=== PATIENT | female | born 1925 | race Caucasian/White ===

== ENCOUNTER 2016-07-05 13:03 | Inpatient (IN) | payer OTHER, MEDICARE ==
[~2016-07-05] VITALS: Ht 177.8 cm; Wt 61.7 kg
[~2016-07-05 13:03] MED LIST: ARTIFICIAL TEA1 EACH OP; ARTIFICIAL TEAR15 M5 OP; ATENOLOL25 M1 PO; ATENOLOL25 MG PO; CALCIUM 600600 M1 PO; DULOXETINE HCL30 MG PO; FERROUS SULFAT325 M3 PO; FUROSEMIDE20 MG PO; GOOD SENSE ASP325 MG PO; KEPPRA500 M1 PO; LAMICTAL150 MG PO; LAMOTRIGINE150 M1 PO; MULTI VITAMINS1 TAB PO; NITROFURANTOIN50 M1 PO; OS-CAL 500+D31 EAC1 PO; RISPERDAL0.5 M1 PO; RISPERIDONE0.5 M1 PO; TRAMADOL50 MG PO; TYLENOL EXTRA500 M2 PO; TYLENOL TAB 32325 MG PO
--- NOTE | 2016-07-05 13:07 | ED GENERAL ADULT ---
History of Present Illness General Chief Complaint: General Adult Stated Complaint: BIBA CHOKING, UNRESPONSIVE Source: EMS Exam Limitations: unable to give history, patient's age, not alert/orientated, clinical condition, confusion, dementia, poor historian, physical impairment Vital Signs & Intake/Output Vital Signs & Intake/Output Vital Signs Date Time Temp Pulse Resp B/P Pulse O2 O2 Flow FiO2 Ox Delivery Rate 07/05 1709 96.4 92 18 148/65 96 Nasal 3.0L Cannula 07/05 1547 97.5 95 18 113/58 98 07/05 1451 97.6 84 16 117/57 95 Nasal 3.0L Cannula 07/05 1326 97.6 94 14 153/77 91 Room Air Allergies Coded Allergies: Opioids - Morphine Analogues (N/V, MADE CRAZY 10/28/15) Reconcile Medications Acetaminophen (Tylenol Extra Strength) 500 MG TABLET 2 TAB PO TID PAIN CONTROL (Reported) Atenolol 25 MG TAB 1 TAB PO Wednesday BP/HEART (Reported) Calcium Carbonate/Vitamin D3 (Os-Carrillo 500+D3 Caplet) 1 EACH TABLET 1 TAB PO DAILY VITAMIN SUPPORT (Reported) Dextran 70/Hypromellose (Artificial Tears) 1 EACH DROPERETTE 1 DROP OP Q4H PRN DRY EYES - BOTH EYES (Reported) Duloxetine HCl 30 MG CAPSULE.DR 1 CAP PO Q12 DEPRESSION (Reported) Ferrous Sulfate 325 MG TABLET 1 TAB PO DAILY VITAMIN SUPPORT (Reported) Lamotrigine 150 MG TABLET 1 TAB PO Q12 SEIZURES (Reported) Multivitamin (One Daily Multivitamin) 1 TAB TAB 1 TAB PO DAILY SUPPLEMENT ( Reported) Triage Nurses Notes Reviewed? yes Onset: Abrupt Duration: hour(s): Timing: recent history HPI: 07/05/16 1:50 PM 82-year-old female presents to the emergency department by ambulance for status post aspiration and respiratory failure. The patient was at the alf eating shrimp for the holiday. She began to choke and the Heimlich maneuver was performed by staff. They said they noted audibly that they have fractured ribs during the procedure. The patient came in lethargic with gagging respirations. Her oropharynx was opened. Mass was noted on the hard palate. She also had an intact shrimp in her oropharynx. She was further suctioned, thick debris was suctioned from her airway. Her airway status improved. She remains lethargic with a room air saturation 93%. The patient is DNR/DNI. Past History Travel History Traveled to [place] past 21 day No Medical History Any Pertinent Medical History? 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 Refer elsewhere in this and other documents for additional details. There is no other information in these categories that I am aware of and no additional information was provided by the patient on consultation evaluation today which is pertinent to patient's current orthopaedic consultation assessment, recommendations or care. History of MRSA: No History of VRE: No History of CDIFF: No Surgical History Surgical History: cataract removal, LEFT HIP SURGERY AFTER FRACTURE , PATIENT UNSURE oophorectomy breast cancer s/p bilateral mastectomy thyroidectomy See Admission History & Physical Examination Report for detailed history. Psychosocial History Who do you live with Family What is your primary language Yoruba Family History Hx Contributory? No Review of Systems Review of Systems Constitutional: Reports: no symptoms. EENTM: Reports: no symptoms. Respiratory: Reports: see HPI. Cardiovascular: Reports: no symptoms. GI: Reports: see HPI. Genitourinary: Reports: no symptoms. Musculoskeletal: Reports: no symptoms. Skin: Reports: no symptoms. Neurological/Psychological: Reports: dementia. Hematologic/Endocrine: Reports: bruising. Physical Exam Physical Exam General Appearance: awake, anxious, moderate distress Head: atraumatic, normal appearance Eyes: Bilateral: PERRL. Ears, Nose, Throat: patient has a mass in her hard palate. She had food material and entire intact shrimp that was suctioned by me out of her oropharynx Neck: normal inspection, supple Respiratory: decreased breath sounds, rhonchi Cardiovascular: regular rate/rhythm Gastrointestinal: soft, non-tender Back: decreased range of motion Extremities: pedal edema Neurologic/Psych: lethargic, nonfocal Skin: ecchymosis, ecchymosis on the anterior chest wall Core Measures ACS in differential dx? Yes CVA/TIA Diagnosis: No Severe Sepsis Present: No Septic Shock Present: No Progress Differential Diagnoses I considered the following diagnoses in my evaluation of the patient: [Multiple rib fractures, status post aspiration, aspiration pneumonia, acute coronary syndrome, pneumothorax] Plan of Care: Orders Procedure Date/time Status CBC WITHOUT DIFFERENTIAL 07/06 0500 Active BASIC ELECTROLYTES PLUS BUN&CR 07/06 0500 Active Nothing by Mouth 07/05 D Active BLOOD CULTURE 07/05 1634 Active Pathway - chart 07/05 1554 Active House Staff 07/05 1554 Active Code Status 07/05 1554 Active Patient Data 07/05 1543 Active Admit to inpatient 07/05 1532 Active TROPONIN LEVEL 07/05 1355 Complete COMPREHENSIVE METABOLIC PANEL 07/05 1355 Complete CBC WITHOUT DIFFERENTIAL 07/05 1355 Complete EKG 07/05 1355 Active Intake & Output 07/05 1328 Active SWALLOW EVALUATION 07/05 UNK Active VTE Mechanical Prophylaxis 07/05 UNK Active Current Medications Sig/Thalia Start time Last Medication Dose Stop Time Status Admin Atenolol 25 MG 07/06 1000 AC (Tenormin) Ferrous Sulfate 325 MG DAILY 07/06 1000 AC (Feosol) Calcium 600 MG BID 07/05 2200 AC (Calcium Carbonate 600 MG Tab) Duloxetine HCl 30 MG Q12 07/05 2200 AC (Cymbalta) Lamotrigine 150 MG Q12 07/05 2200 AC (LaMICtal) Acetaminophen 650 MG Q6P PRN 07/05 1600 AC (Tylenol) Morphine Sulfate 4 MG Q4P PRN 07/05 1600 AC (Morphine) Oxycodone/ 1 TAB Q6P PRN 07/05 1600 AC Acetaminophen (Percocet) Laboratory Tests 07/05/16 1425: Anion Gap 7, Estimated GFR > 60, BUN/Creatinine Ratio 48.0 H, Glucose 199 H, Calcium 9.4, Total Bilirubin 0.6, AST 39 H, ALT 43, Alkaline Phosphatase 116, Troponin I < 0.01, Total Protein 5.3 L, Albumin 3.2 L, Globulin 2.1, Albumin/ Globulin Ratio 1.5, CBC w Diff MAN DIFF ORDERED, RBC 3.46 L, MCV 91.4, MCH 30.7 , RDW 14.1, MPV 7.4, Gran % 91.5 H, Lymphocytes % 3.5 L, Monocytes % 4.4, Eosinophils % 0.5, Basophils % 0.1, Absolute Granulocytes 35.4 H, Segmented Neutrophils 85 H, Band Neutrophils 4, Absolute Lymphocytes 1.3, Lymphocytes 3 L, Monocytes 5, Absolute Monocytes 1.7 H, Absolute Eosinophils 0.2, Absolute Basophils 0.1, Metamyelocytes 2 H, Myelocytes 1 H, Platelet Estimate ADEQUATE, Hypochromic-Microcytic 2+, Anisocytosis 1+, PUBS MCHC 33.6 Microbiology 07/05 1940 BLOOD: Blood Culture - RECD 07/05 1915 BLOOD: Blood Culture - RECD Initial ED EKG: NSR, nonspecific ST T wave chg Comments: Chest x-ray results below PATIENT: MAGO KHAN PRESENT AGE: 89 PATIENT ACCOUNT NO: [id number] : [birth year] LOCATION: [facility] ORDERING PHYSICIAN: ERIC MARRERO DO SERVICE DATE: 07/05/16-8736 EXAM TYPE: RAD - XRY-PORTABLE CHEST XRAY EXAMINATION: XR PORTABLE CHEST CLINICAL INFORMATION: Shortness of breath. Suspected aspiration. COMPARISON: Chest done on 03/13/2016. TECHNIQUE: Portable view of the chest was obtained. FINDINGS: Both lung bustos are symmetrically expanded and appear clear. The cardiomediastinal silhouette is within normal limits. There are foci of sclerosis identified along the anterior end of third, fourth, fifth ribs likely represent healing fractures, new since prior study. Post vertebroplasty related changes are noted within the lower thoracic spine, unchanged. There is no pleural effusion present. IMPRESSION: No acute cardiopulmonary disease. Likely healing fractures involving the anterior end of the left third through fifth ribs, new since prior study. DICTATED BY: ELDON MELENDEZ MD DATE/TIME DICTATED:07/05/161447 BID CLERK:SHEILA DATE/TIME TRANSCRIBED:07/05/161447 CONFIDENTIAL, DO NOT COPY WITHOUT APPROPRIATE AUTHORIZATION. <Electronically signed in Other Vendor System> SIGNED BY: ELDON MELENDEZ MD 07/05/16 7633 Departure Departure Disposition: STILL A PATIENT Condition: Stable Clinical Impression Primary Impression: Respiratory failure Secondary Impressions: Aspiration pneumonia, Multiple rib fractures, Observation of foreign body of airway Referrals: WICHO CYR MD (PCP/Family) Referred to [facility] patient No Departure Forms: Customer Survey General Discharge Information Comments 07/05/16 2:34 pm She was placed on a patient monitor. Her oropharynx was suctioned. IV fluids were started. She was placed on oxygen 2 L nasal cannula. The patient is DNR DNI. I attempted to reach the family unsuccessfully to update them on her condition. The patient was subsequently admitted by Dr. Cyr. She was having ventricular ectopy, Dr. Cyr was notified. IV antibiotics were given. She is admitted to the hospital for further care. Chest x-ray result listed below PATIENT: MAGO KHAN PRESENT AGE: 89 PATIENT ACCOUNT NO: [id number] : [birth year] LOCATION: [facility] ORDERING PHYSICIAN: ERIC MARRERO DO SERVICE DATE: 07/05/16 EXAM TYPE: RAD - XRY-PORTABLE CHEST XRAY EXAMINATION: XR PORTABLE CHEST CLINICAL INFORMATION: Shortness of breath. Suspected aspiration. COMPARISON: Chest done on 03/13/2016. TECHNIQUE: Portable view of the chest was obtained. FINDINGS: Both lung bustos are symmetrically expanded and appear clear. The cardiomediastinal silhouette is within normal limits. There are foci of sclerosis identified along the anterior end of third, fourth, fifth ribs likely represent healing fractures, new since prior study. Post vertebroplasty related changes are noted within the lower thoracic spine, unchanged. There is no pleural effusion present. IMPRESSION: No acute cardiopulmonary disease. Likely healing fractures involving the anterior end of the left third through fifth ribs, new since prior study. DICTATED BY: ELDON MELENDEZ MD DATE/TIME DICTATED:07/05/161447 BID CLERK:SHEILA DATE/TIME TRANSCRIBED:07/05/161447 CONFIDENTIAL, DO NOT COPY WITHOUT APPROPRIATE AUTHORIZATION. <Electronically signed in Other Vendor System> SIGNED BY: ELDON MELENDEZ MD 07/05/16 8096 Admission Note Spoke With: WICHO CYR MD Documentation of Exam: Documentation of any treatments & extenuating circumstances including Concerns Regarding Discharge (functional status, medication knowledge or non-compliance, living conditions, etc.) that warrant an admission rather than observation: [The patient has aspiration pneumonia. She needs IV antibiotics and oxygen, she has rib fractures and is a high likelihood of respiratory failure. She is DNR/DNI Dr. Cyr will follow-up with the family to further discuss end-of-life care] Critical Care Note Critical Care Note Critical Care Time: 30-74 min
--- NOTE | 2016-07-05 13:21 | NUR ---
ALEX FROM [facility]ISTED [facility]IVING ([facility] AT [facility]), AFTER CHOKING ON SHRIMP. PER EMS, STAFF AT [facility] PERFORMED THE HEMLICH MANUEVER MUTIPLE TIMES TO SUCCESSFULLY DISLODGE SHRIMP. UNRESPONSIVE ON ARRIVAL, EVALUATED BY DFR. MARRERO, FOOD BOLUS NOTED IN BACK OF THROAT, 1 PIECE OF SHRIMP SUCTIONED OUT BY DR. MARRERO.
--- NOTE | 2016-07-05 13:22 | NUR ---
PT OPENEING EYES. MASS NOTED ON ROOF OF MOUTH. EPIGASTRIC AREA RED, INCONTINENT OF URINE AND STOOL. LINEN CHANGED, HEIDI CARE GIVEN. 2 CM OPEN AREA NOTED ON COCCYX.
--- NOTE | 2016-07-05 13:27 | NUR ---
02 SAT INCREASED TO 94% WITH O2 ON AT 3L NASAL CANNULA. SNORING RESPIRAITONS.
--- NOTE | 2016-07-05 14:02 | NUR ---
OCCASIONAL PVC/S NOTED ON MONITOR.
--- NOTE | 2016-07-05 14:19 | NUR ---
PT BLOOD SENT TO THE LAB SST,BLUE,LAV
[2016-07-05 14:34] LABS: ABSOLUTE EOSINOPHIL COUNT 0.2 /CUMM (0.0-0.7); ABSOLUTE MONOCYTE COUNT 1.7 /CUMM (0.10-0.60); MEAN CORPUSCULAR VOLUME 91.4 FL (81.0-99.0)
[2016-07-05 14:39] LABS: ABSOLUTE BASOPHIL COUNT 0.1 /CUMM (0.0-0.2); ABSOLUTE GRANULOCYTE CT 35.4 /CUMM (1.4-6.5); ABSOLUTE LYMPH COUNT 1.3 /CUMM (1.2-3.4); BASOPHIL % 0.1 % (0.0-2.0); EOSINOPHIL % 0.5 % (0-5); GRANULOCYTE % 91.5 % (42.2-75.2); HEMATOCRIT 31.6 % (37-47); MEAN CORPUSCULAR HGB 30.7 PG (27.0-31.0); MEAN CORPUSCULAR HGB CONC 33.6 G/DL (33.0-37.0); MEAN PLATELET VOLUME 7.4 FL (7.4-10.4); PLATELET COUNT 211 /CUMM (130-400); RBC DISTRIBUTION WIDTH 14.1 % (11.5-14.5); RED BLOOD CELL CT 3.46 /CUMM (4.20-5.40)
[2016-07-05 14:40] LABS: WHITE BLOOD CELL COUNT 38.7 /CUMM (4.8-10.8)
--- NOTE | 2016-07-05 14:43 | NUR ---
CRITICAL TEST RESULTS [id number] MAGO KHAN 89 F TESTS AND RESULTS: WBC 38.7 Results received and read back by: KATE LUNDBERG Results received date and time: 07/05/16 1:44P, REPORTED TO DR. MARRERO
--- NOTE | 2016-07-05 14:54 | RADIOLOGY REPORT ---
EXAMINATION: XR PORTABLE CHEST CLINICAL INFORMATION: Shortness of breath. Suspected aspiration. COMPARISON: Chest done on 03/13/2016. TECHNIQUE: Portable view of the chest was obtained. FINDINGS: Both lung bustos are symmetrically expanded and appear clear. The cardiomediastinal silhouette is within normal limits. There are foci of sclerosis identified along the anterior end of third, fourth, fifth ribs likely represent healing fractures, new since prior study. Post vertebroplasty related changes are noted within the lower thoracic spine, unchanged. There is no pleural effusion present. IMPRESSION: No acute cardiopulmonary disease. Likely healing fractures involving the anterior end of the left third through fifth ribs, new since prior study.
--- NOTE | 2016-07-05 15:52 | History & Physical ---
See Addendum General Information and HPI MD Statement: I have seen and personally examined MAGO KHAN and documented this H&P. The patient is a 89 year old F who presented with a patient stated chief complaint of [aeration and choking]. History of Present Illness: This 89-year-old female with a past medical history of depression, hypertension, history of seizures, iron deficiency anemia who presented to the [facility] from [facility] facility after she found to have aspirated on her lunch. The patient was was enjoying her lunch midterms when she started having coughing and was not able to breathe. The nurse at the facility had to do a Heimlich maneuver to revive her. After that the patient was transferred to the emergency department. In the ED the patient was found to be hypoxic and sounded chronically and on suction for residual including half digested part of position was removed. In the emergency department and saw the patient the patient was still drowsy and sleepy but was able to give me some history. The patient denied any episode of vomiting or diarrhea prior to coming here. Allergies/Medications Allergies: Coded Allergies: Opioids - Morphine Analogues (N/V, MADE JAMI 10/28/15) Home Med list Acetaminophen (Tylenol Extra Strength) 500 MG TABLET 2 TAB PO TID PAIN CONTROL (Reported) Atenolol 25 MG TAB 1 TAB PO Wednesday BP/HEART (Reported) Calcium Carbonate/Vitamin D3 (Os-Carrillo 500+D3 Caplet) 1 EACH TABLET 1 TAB PO DAILY VITAMIN SUPPORT (Reported) Dextran 70/Hypromellose (Artificial Tears) 1 EACH DROPERETTE 1 DROP OP Q4H PRN DRY EYES - BOTH EYES (Reported) Duloxetine HCl 30 MG CAPSULE.DR 1 CAP PO Q12 DEPRESSION (Reported) Ferrous Sulfate 325 MG TABLET 1 TAB PO DAILY VITAMIN SUPPORT (Reported) Lamotrigine 150 MG TABLET 1 TAB PO Q12 SEIZURES (Reported) Multivitamin (One Daily Multivitamin) 1 TAB TAB 1 TAB PO DAILY SUPPLEMENT ( Reported) Past History Travel History Traveled to [place] past 21 day No Medical History Neurological: dementia, EPILEPSY EENT: cataracts Cardiovascular: hypertension Respiratory: NONE Gastrointestinal: NONE Hepatic: NONE Renal: URINARY RETENTION Musculoskeletal: L HIP REMOVAL OF HARDWARE Psychiatric: NONE Endocrine: THYROIDECTOMY Blood Disorders: anemia 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 Refer elsewhere in this and other documents for additional details. There is no other information in these categories that I am aware of and no additional information was provided by the patient on consultation evaluation today which is pertinent to patient's current orthopaedic consultation assessment, recommendations or care. History of MRSA: No History of VRE: No History of CDIFF: No Surgical History Surgical History: cataract removal, LEFT HIP SURGERY AFTER FRACTURE , PATIENT UNSURE oophorectomy breast cancer s/p bilateral mastectomy thyroidectomy See Admission History & Physical Examination Report for detailed history. Past Family/Social History Family History Relations & Conditions if any MOTHER Relation not specified for: Essential hypertension Psychosocial History Where do you live? Extended Care Facility Services at Home: Nursing Primary Language: South Sudanese Smoking Status: Never Smoked ETOH Use: denies use Functional Ability Ambulation: non-ambulatory, Wheelchair (usual means of mobilization and mobility function) (patient's ability to perform independent transfers is unclear) Review of Systems Review of Systems Constitutional: Reports: see HPI. Cardiovascular: Reports: see HPI. Respiratory: Reports: see HPI, cough, hemoptysis, short of breath. Denies: orthopnea. Genitourinary: Denies: dysuria, frequency, hematuria, hesitation. Musculoskeletal: Denies: joint pain, muscle pain. Exam & Diagnostic Data Last 24 Hrs of Vital Signs/I&O Vital Signs Date Time Temp Pulse Resp B/P Pulse O2 O2 Flow FiO2 Ox Delivery Rate 07/05 1547 97.5 95 18 113/58 98 07/05 1451 97.6 84 16 117/57 95 Nasal 3.0L Cannula 07/05 1326 97.6 94 14 153/77 91 Room Air Intake & Output 07/05 1600 07/05 0800 07/05 0000 Intake Total 1100 Output Total Balance 1100 Intake, IV 1100 Patient 136 lb Weight Physical Exam General Appearance Alert, Oriented X3, Cooperative, No Acute Distress Skin No Rashes, No Breakdown HEENT Atraumatic, PERRLA Neck Supple, No JVD Lymphatic Axillary nl, Cervical nl Cardiovascular Regular Rate, Normal S1, Normal S2 Lungs B/L BASAL CRACKLES AND DECREASED AIR ENTRY Abdomen Normal Bowel Sounds, Soft, No Tenderness Neurological Normal Gait, Normal Speech, Strength at 5/5 X4 Ext, Normal Tone Extremities No Clubbing, No Cyanosis, No Edema Vascular Normal Pulses, Pulses Symmetrical Assessment/Plan Assessment: THIS IS A 89-YEAR-OLD FEMALE WITH A PAST MEDICAL HISTORY OF HYPERTENSION HISTORY OF SEIZURES, DEPRESSION, WHO PRESENTED TO THE [facility] EMERGENCY DEPARTMENT AFTER SHE WAS FOUND TO HAVE ASPIRATED ON HER lunch. The patient required Heimlich went over foot arrival. Vitals at the time of admission showed: Blood pressure of 153/77, respiration rate of 14, temperature of 97.6, pulse rate of 94, saturation of 95% on 3 L of oxygen Labs showed a WBC of 34,000 with a left shift Chest x-ray was significant for aspiration pneumonitis 1 Assessment 1. Aspiration pneumoniA secondary to choking spell on the food 2. History of hypertension 3. History of depression 4. History of epilepsy/seizures Plan Admit to general medicine floor for aspiration pneumonia Vitals every shift IV Unasyn IV normal saline at 75 mL per hour Repeat CBC and basic electrolyte panel in the morning Continue with all her home medications Nothing by mouth until the formal swallow evaluation The patient might need a modified barium swallow DVT prophylaxis at all times with subcutaneous LoVENIX Pain pathway at all times Patient is DNR/DNI and is in the process of being converted to comfort care. We will await the primary care physician to speak to the family member. As Ranked By This Provider Problem List: 1. Chest pain 2. Fall Core Measures/Miscellaneous Acute Coronary Syndrome ACS Diagnosis: No Cerebrovascular Accident CVA/TIA Diagnosis: No Congestive Heart Failure CHF Diagnosis: No Venous Thromboembolism VTE Risk Factors: Acute medical illness, Age > 40 VTE Prophylaxis [facility]dered Inpt[facility] prophylaxis d/t: No contraindications No VTE Pharm Prophylaxis d/t: No contraindications VTE Diagnosis: No VTE Type: NONE VTE Confirmed by (Test): NONE Severe Sepsis Severe Sepsis Present: No Septic Shock Septic Shock Present: No Miscellaneous Documentation Attending Case Discussed With: DR Cyr Primary Care Physician: WICHO CYR MD Patient sees these Specialists NONE Level of Patient Care: General Medicine NONE Level of Patient Care: General Medicine
--- NOTE | 2016-07-05 16:10 | NUR ---
AWAITING BED ASSIGNMENT FROM NURSING CONTRACT [facility]
--- NOTE | 2016-07-05 16:20 | NUR ---
PT WILL GO TO ROOM 220-1
--- NOTE | 2016-07-05 17:32 | NUR ---
REPORT GIVEN AND TRANSPORT ALSO CALLED
--- NOTE | 2016-07-05 17:45 | NUR ---
PT TRANSPORTED TO FLOOR
--- NOTE | 2016-07-05 18:14 | Admission Certification ---
Admission Certification Certification Statement - As attending physician, I certify that at the time of - admission, based on clinical presentation, severity of - symptoms, need for further diagnostic testing and - therapeutic interventions, and risk of adverse outcomes - without in-hospital treatment, in my clinical assessment, - this patient requires an acute hospital stay for a minimum - of two nights or longer. I have also considered psychsocial - factors such as support system, advanced age, financial - issues, cognitive issues, and failed out-patient treatments, - past re-admission history, safety of patient, and lack of - compliance as applicable. Specific rationale supporting this admission is: chocking episode with shrimp followed by aspiration pneumonia unresponsiveness and leukocytosis.
--- NOTE | 2016-07-05 18:19 | PN- Att Addend ---
Attending Addendum Attending Brief Note 89 year old female living at assisted living was eating shrimp and chocked on it became unresponsive had the Haimlik maneuver brought to ER the shrimp was extracted from mouth patient still drowsy WBC high possible aspiration pneumonia also fractured ribs from resuscitation. PT DNR-DNI will admit, treat as aspiration pneumonia. Laboratory Tests 07/05 1425 Chemistry Sodium (137 - 145 mmol/L) 135 L Potassium (3.5 - 5.1 mmol/L) 4.0 Chloride (98 - 107 mmol/L) 99 Carbon Dioxide (22 - 30 mmol/L) 29 Anion Gap (5 - 16) 7 BUN (7 - 17 mg/dL) 24 H Creatinine (0.5 - 1.0 mg/dL) 0.5 Estimated GFR (>60 ml/min) > 60 BUN/Creatinine Ratio (7 - 25 %) 48.0 H Glucose (65 - 99 mg/dL) 199 H Calcium (8.4 - 10.2 mg/dL) 9.4 Total Bilirubin (0.2 - 1.3 mg/dL) 0.6 AST (14 - 36 U/L) 39 H ALT (9 - 52 U/L) 43 Alkaline Phosphatase (<127 U/L) 116 Troponin I (< 0.11 ng/ml) < 0.01 Total Protein (6.3 - 8.2 g/dL) 5.3 L Albumin (3.5 - 5.0 g/dL) 3.2 L Globulin (1.9 - 4.2 gm/dL) 2.1 Albumin/Globulin Ratio (1.1 - 2.2 %) 1.5 Hematology CBC w Diff MAN DIFF ORDERED WBC (4.8 - 10.8 /CUMM) 38.7 *H RBC (4.20 - 5.40 /CUMM) 3.46 L Hgb (12.0 - 16.0 G/DL) 10.6 L Hct (37 - 47 %) 31.6 L MCV (81.0 - 99.0 FL) 91.4 MCH (27.0 - 31.0 PG) 30.7 RDW (11.5 - 14.5 %) 14.1 Plt Count (130 - 400 /CUMM) 211 MPV (7.4 - 10.4 FL) 7.4 Gran % (42.2 - 75.2 %) 91.5 H Lymphocytes % (20.5 - 51.1 %) 3.5 L Monocytes % (1.7 - 9.3 %) 4.4 Eosinophils % (0 - 5 %) 0.5 Basophils % (0.0 - 2.0 %) 0.1 Absolute Granulocytes (1.4 - 6.5 /CUMM) 35.4 H Segmented Neutrophils (42.2 - 75.2 %) 85 H Band Neutrophils (0.0 - 5.0 %) 4 Absolute Lymphocytes (1.2 - 3.4 /CUMM) 1.3 Lymphocytes (20.5 - 51.1 %) 3 L Monocytes (1.7 - 9.3 %) 5 Absolute Monocytes (0.10 - 0.60 /CUMM) 1.7 H Absolute Eosinophils (0.0 - 0.7 /CUMM) 0.2 Absolute Basophils (0.0 - 0.2 /CUMM) 0.1 Metamyelocytes (0.0 - 1.0 %) 2 H Myelocytes (0 - 0 %) 1 H Platelet Estimate (ADEQUATE) ADEQUATE Hypochromic-Microcytic 2+ Anisocytosis 1+ PUBS MCHC (33.0 - 37.0 G/DL) 33.6
--- NOTE | 2016-07-05 21:10 | NUR ---
PATIENT ADMITTED FROM ER AT 1800. PATIENT ALERT AND CONFUSED. UNABLE TO OBTAIN ADMISSION INFO FROM PATIENT. NURSE AT [facility] WAS CALLED. SPOKE WITH CLAIR (NURSE), GOT SOME INFO FROM HIM. INFORMATION REGARDING THE FLU AND PNEUMOVAX HE DID NOT HAVE. PER CLAIR ONCE THE INFO IS OBTAINED STAFF AT [facility] WILL CALL [facility]. WILL PASS ON TO ONCOMING NURSE REGARDING THE FLU AND PNEUMOVAX. PATIENT IN NO APPARENT DISTRESS. VINCENZO, PATIENT POA ALSO CALLED FOR UPDATE. WILL CONTINUE TO MONITOR.
[2016-07-05 22:53] VITALS: BP 146/70
--- NOTE | 2016-07-05 23:37 | NUR ---
OPEN AREA NOTED TO COCC[employer] MEASURING 1CM X 0.2CM. MOX SENT TO MARYURI Martinez (WOUND CARE NURSE TO EVALUATE.
--- NOTE | 2016-07-06 05:32 | NUR ---
AT 0445 PT TEMP 101.3 RECTALLY, PT IS NPO NO PO MEDS TO BE TAKEN, JOSE POTTER MD, IV TYLENOL ORDERED. WILL FOLLOW UP.
[2016-07-06 06:00] VITALS: BP 134/70
--- NOTE | 2016-07-06 06:31 | PN- Housestaff ---
Subjective Follow-up For: 1. Aspiration pneumonia 2. History of hypertension 3. History of depression 4. History of epilepsy/seizures Review of Systems Constitutional: Reports: see HPI. Objective Last 24 Hrs of Vital Signs/I&O Vital Signs Date Time Temp Pulse Resp B/P Pulse O2 O2 Flow FiO2 Ox Delivery Rate 07/06 0641 100.1 07/06 0619 100.1 07/06 0520 101.3 07/06 0000 98 Nasal 2.0L Cannula 07/05 2253 97.9 95 20 146/70 99 Room Air 07/05 2000 Nasal 3.0L Cannula 07/05 1709 96.4 92 18 148/65 96 Nasal 3.0L Cannula 07/05 1547 97.5 95 18 113/58 98 07/05 1451 97.6 84 16 117/57 95 Nasal 3.0L Cannula 07/05 1326 97.6 94 14 153/77 91 Room Air Intake & Output 07/06 0800 07/06 0000 07/05 1600 Intake Total 123 730 7965 Output Total Balance 059 197 2688 Intake, IV 586 113 4607 Intake, Oral 0 Number 1 Bowel Movements Patient 61.689 kg 61.689 kg Weight Physical Exam General Appearance: Alert, Oriented X3, Cooperative, No Acute Distress Other Physical Findings: Skin No Rashes, No Breakdown HEENT Atraumatic, PERRLA Neck Supple, No JVD Lymphatic Axillary nl, Cervical nl Cardiovascular Regular Rate, Normal S1, Normal S2 Lungs bibasilar crackles, decreased breath sounds bilaterally Abdomen Normal Bowel Sounds, Soft, No Tenderness Neurological Normal Gait, Normal Speech, Strength at 5/5 X4 Ext, Normal Tone Extremities No Clubbing, No Cyanosis, No Edema Vascular Normal Pulses, Pulses Symmetrical Current Medications: Current Medications Sig/Thalia Start time Last Medication Dose Route Stop Time Status Admin Acetaminophen 1,000 MG ONCE ONE 07/06 0500 DC 07/06 N/A 1 UNIT IV 07/06 0514 0520 Acetaminophen 650 MG Q6P PRN 07/05 1600 AC PO Ampicillin Sodium/ 3,000 MG Q6H 07/05 2000 AC 07/06 Sulbactam Sodium IV 0130 Sodium Chloride 100 ML Ampicillin Sodium/ 0 .STK-MED ONE 07/05 1413 DC Sulbactam Sodium .ROUTE Ampicillin Sodium/ 3,000 MG ONCE ONE 07/05 1400 DC 07/05 Sulbactam Sodium IV 07/05 1429 1418 Sodium Chloride 100 ML Atenolol 25 MG 07/06 1000 AC PO Calcium 600 MG BID 07/05 2200 AC PO Duloxetine HCl 30 MG Q12 07/05 2200 AC PO Enoxaparin Sodium 40 MG DAILY 07/05 1717 AC 07/05 SC 1954 Ferrous Sulfate 325 MG DAILY 07/06 1000 AC PO Lamotrigine 150 MG Q12 07/05 220 AC PO Morphine Sulfate 4 MG Q4P PRN 07/05 1600 AC IV Multivitamins 1 TAB DAILY 07/06 1000 AC Therapeutic PO Oxycodone/ 1 TAB Q6P PRN 07/05 1600 AC Acetaminophen PO Sodium Chloride 1,000 ML Q13H 07/05 1645 AC 07/05 IV 195 Sodium Chloride 1,000 ML BOLUS ONE 07/05 1400 DC 07/05 IV 07/05 1559 1359 Last 24 Hrs of Lab/Branden Results Last 24 Hrs of Labs/Mics: Laboratory Tests 07/05/161424: Anion Gap 7, Estimated GFR > 60, BUN/Creatinine Ratio 48.0 H, Glucose 199 H, Calcium 9.4, Total Bilirubin 0.6, AST 39 H, ALT 43, Alkaline Phosphatase 116, Troponin I < 0.01, Total Protein 5.3 L, Albumin 3.2 L, Globulin 2.1, Albumin/ Globulin Ratio 1.5, CBC w Diff MAN DIFF ORDERED, RBC 3.46 L, MCV 91.4, MCH 30.7 , RDW 14.1, MPV 7.4, Gran % 91.5 H, Lymphocytes % 3.5 L, Monocytes % 4.4, Eosinophils % 0.5, Basophils % 0.1, Absolute Granulocytes 35.4 H, Segmented Neutrophils 85 H, Band Neutrophils 4, Absolute Lymphocytes 1.3, Lymphocytes 3 L, Monocytes 5, Absolute Monocytes 1.7 H, Absolute Eosinophils 0.2, Absolute Basophils 0.1, Metamyelocytes 2 H, Myelocytes 1 H, Platelet Estimate ADEQUATE, Hypochromic-Microcytic 2+, Anisocytosis 1+, PUBS MCHC 33.6 Microbiology 07/05 1940 BLOOD: Blood Culture - RECD 07/05 1915 BLOOD: Blood Culture - RECD Assessment/Plan Assessment: 89-year-old female with a past medical history of depression, hypertension, history of seizures, iron deficiency anemia who presents after a choking spell, admitted for aspiraton pneumonia. Problem list: 1. Aspiration pneumonia secondary to choking spell on the food 2. History of hypertension 3. History of depression 4. History of epilepsy/seizures Plans: * Continue IV Unasyn - day #2 * IV normal saline at 75 mL per hour * Check CBC daily, trend WBC * Continue with all her home medications * Follow swallow eval, may need MBS * Nothing by mouth with aspiration precautions for now * DVT prophylaxis at all times with subcutaneous Lovenox * Mild pain pathway * Code: DNR/DNI Problem List: 1. Left hip pain 2. Muscle strain 3. Hip pain, acute 4. Elevated blood pressure 5. Anemia 6. Seizure disorder 7. Seizure 8. Fall 9. Chest pain 10. Respiratory failure 11. Observation of foreign body of airway 12. Aspiration pneumonia 13. Multiple rib fractures Pain Ratin Pain Location: 0 Pain Goal: Remain pain free Pain Plan: Mild pathway Tomorrow's Labs & Rationales: CBC BEP
[2016-07-06 08:47] LABS: ABSOLUTE BASOPHIL COUNT 0 /CUMM (0.0-0.2); ABSOLUTE EOSINOPHIL COUNT 0 /CUMM (0.0-0.7); ABSOLUTE GRANULOCYTE CT 22.9 /CUMM (1.4-6.5); ABSOLUTE LYMPH COUNT 0.5 /CUMM (1.2-3.4); ABSOLUTE MONOCYTE COUNT 1.3 /CUMM (0.10-0.60); BASOPHIL % 0.1 % (0.0-2.0); EOSINOPHIL % 0.1 % (0-5); GRANULOCYTE % 92.3 % (42.2-75.2); HEMATOCRIT 27.9 % (37-47); MEAN CORPUSCULAR HGB CONC 33.7 G/DL (33.0-37.0); MEAN CORPUSCULAR VOLUME 91.9 FL (81.0-99.0); MEAN PLATELET VOLUME 7.9 FL (7.4-10.4); PLATELET COUNT 176 /CUMM (130-400); RBC DISTRIBUTION WIDTH 14.4 % (11.5-14.5); RED BLOOD CELL CT 3.03 /CUMM (4.20-5.40); WHITE BLOOD CELL COUNT 24.8 /CUMM (4.8-10.8)
--- NOTE | 2016-07-06 10:38 | PN- Att Addend ---
Attending Addendum Attending Brief Note Patient in bed in no respiratory distress. When you call the patient she wakes up still a little slow mentation temp max was 101.3 overnight. No major changes on physical her white count this morning is 24,800 down from 38,700 will continue IV antibiotics respiratory treatments much at all the cultures when stable get a physical therapy evaluation to see if she can return to assisted living or might need more care. Current Medications Sig/Thalia Start time Last Medication Dose Route Stop Time Status Admin Acetaminophen 1,000 MG ONCE ONE 07/06 0500 DC 07/06 N/A 1 UNIT IV 07/06 0514 0520 Acetaminophen 650 MG Q6P PRN 07/05 1600 AC PO Ampicillin Sodium/ 3,000 MG Q6H 07/05 2000 AC 07/06 Sulbactam Sodium IV 0745 Sodium Chloride 100 ML Ampicillin Sodium/ 0 .STK-MED ONE 07/05 1413 DC Sulbactam Sodium .ROUTE Ampicillin Sodium/ 3,000 MG ONCE ONE 07/05 1400 DC 07/05 Sulbactam Sodium IV 07/05 1429 1418 Sodium Chloride 100 ML Atenolol 25 MG 07/06 1000 AC PO Calcium 600 MG BID 07/05 2200 AC PO Duloxetine HCl 30 MG Q12 07/05 2200 AC PO Enoxaparin Sodium 40 MG DAILY 07/05 1717 AC 07/05 SC 195 Ferrous Sulfate 325 MG DAILY 07/06 1000 AC PO Lamotrigine 150 MG Q12 07/050 AC PO Morphine Sulfate 4 MG Q4P PRN 07/05 1600 AC IV Multivitamins 1 TAB DAILY 07/06 1000 AC Therapeutic PO Oxycodone/ 1 TAB Q6P PRN 07/05 1600 AC Acetaminophen PO Sodium Chloride 1,000 ML Q13H 07/05 1645 AC 07/05 IV 195 Sodium Chloride 1,000 ML BOLUS ONE 07/05 1400 DC 07/05 IV 07/05 1559 1359 Laboratory Tests 07/06/16 0645: Anion Gap 9, Estimated GFR > 60, BUN/Creatinine Ratio 46.0 H, CBC w Diff MAN DIFF ORDERED, RBC 3.03 L, MCV 91.9, MCH 31.0, RDW 14.4, MPV 7.9, Gran % 92.3 H , Lymphocytes % 2.2 L, Monocytes % 5.3, Eosinophils % 0.1, Basophils % 0.1, Absolute Granulocytes 22.9 H, Segmented Neutrophils 87 H, Band Neutrophils 5, Absolute Lymphocytes 0.5 L, Lymphocytes 2 L, Monocytes 6, Absolute Monocytes 1.3 H, Absolute Eosinophils 0, Absolute Basophils 0, Platelet Estimate VERIFIED BY SMEAR, Normocytic RBCs VERIFIED, Normochromic RBCs VERIFIED, PUBS MCHC 33.7 07/05/16 1425: Anion Gap 7, Estimated GFR > 60, BUN/Creatinine Ratio 48.0 H, Glucose 199 H, Calcium 9.4, Total Bilirubin 0.6, AST 39 H, ALT 43, Alkaline Phosphatase 116, Troponin I < 0.01, Total Protein 5.3 L, Albumin 3.2 L, Globulin 2.1, Albumin/ Globulin Ratio 1.5, CBC w Diff MAN DIFF ORDERED, RBC 3.46 L, MCV 91.4, MCH 30.7 , RDW 14.1, MPV 7.4, Gran % 91.5 H, Lymphocytes % 3.5 L, Monocytes % 4.4, Eosinophils % 0.5, Basophils % 0.1, Absolute Granulocytes 35.4 H, Segmented Neutrophils 85 H, Band Neutrophils 4, Absolute Lymphocytes 1.3, Lymphocytes 3 L, Monocytes 5, Absolute Monocytes 1.7 H, Absolute Eosinophils 0.2, Absolute Basophils 0.1, Metamyelocytes 2 H, Myelocytes 1 H, Platelet Estimate ADEQUATE, Hypochromic-Microcytic 2+, Anisocytosis 1+, PUBS MCHC 33.6 Microbiology Date/Time Procedure - Status Source Growth 07/05 1940 Blood Culture - RECD BLOOD 07/05 1915 Blood Culture - RECD BLOOD Vital Signs Date Time Temp Pulse Resp B/P Pulse O2 O2 Flow FiO2 Ox Delivery Rate 07/06 0753 Room Air 07/06 0641 100.1 07/06 0619 100.1 07/06 0600 101.1 82 20 134/70 98 Nasal Cannula 07/06 0520 101.3 07/06 0000 98 Nasal 2.0L Cannula 07/05 2253 97.9 95 20 146/70 99 Room Air 07/05 2000 Nasal 3.0L Cannula 07/05 1709 96.4 92 18 148/65 96 Nasal 3.0L Cannula 07/05 1547 97.5 95 18 113/58 98 07/05 1451 97.6 84 16 117/57 95 Nasal 3.0L Cannula 07/05 1326 97.6 94 14 153/77 91 Room Air Intake & Output 07/06 1600 07/06 0800 07/06 0000 Intake Total 600 300 Output Total Balance 600 300 Intake, IV 600 300 Intake, Oral 0 Number 3 1 Bowel Movements Patient 136 lb Weight
[2016-07-06 15:02] VITALS: BP 140/70
[2016-07-06 23:01] VITALS: BP 142/70
--- NOTE | 2016-07-07 06:36 | PN- Housestaff ---
Subjective Follow-up For: 1. Aspiration pneumonia 2. History of hypertension 3. History of depression 4. History of epilepsy/seizures Subjective: Patient is seen and examined at bedside. She is resting comfortably in bed with no acute complaints. Patient spking a fever over the past 24 hours, Tmax 102. Patient passed MBS, diet upgraded to purree and thin. Review of Systems Constitutional: Reports: see HPI, fever. Comments: Respiratory: Denies: orthopnea, cough, hemoptysis, short of breath Genitourinary: Denies: dysuria, frequency, hematuria, hesitation. Musculoskeletal: Denies: joint pain, muscle pain. Objective Last 24 Hrs of Vital Signs/I&O Vital Signs Date Time Temp Pulse Resp B/P Pulse O2 O2 Flow FiO2 Ox Delivery Rate 07/07 1443 100.6 82 20 130/60 95 Room Air 07/07 1225 96 118/60 07/07 1220 100 150/60 07/07 0801 101.1 07/07 0800 Nasal 2.0L Cannula 07/07 0737 101.0 100 20 150/60 96 Nasal 2.0L Cannula 07/07 0642 102.0 126 20 160/60 92 Nasal 2.0L Cannula 07/07 0620 102.0 07/07 0000 Nasal 2.0L Cannula 07/06 2301 97.9 96 20 142/70 95 Nasal Cannula 07/06 1600 Nasal 2.0L Cannula 07/06 1502 98.5 100 20 140/70 96 Intake & Output 07/07 1600 07/07 0800 07/07 0000 Intake Total 894 919 1107 Output Total Balance 801 718 4514 Intake, IV 600 600 600 Intake, Oral 236 400 Number 2 3 Bowel Movements Patient 61.689 kg Weight Physical Exam General Appearance: Alert, Oriented X3, Cooperative, No Acute Distress Other Physical Findings: Skin No Rashes, No Breakdown HEENT Atraumatic, PERRLA Neck Supple, No JVD Lymphatic Axillary nl, Cervical nl Cardiovascular Regular Rate, Normal S1, Normal S2 Lungs bibasilar crackles - improving, decreased breath sounds bilaterally Abdomen Normal Bowel Sounds, Soft, No Tenderness Neurological Normal Gait, Normal Speech, Strength at 5/5 X4 Ext, Normal Tone Extremities No Clubbing, No Cyanosis, No Edema Vascular Normal Pulses, Pulses Symmetrical Current Medications: Current Medications Sig/Thalia Start time Last Medication Dose Route Stop Time Status Admin Acetaminophen 1,000 MG ONCE ONE 07/07 0630 DC 07/07 N/A 1 UNIT IV 07/07 0644 0620 Acetaminophen 650 MG Q6P PRN 07/05 1600 AC PO Ampicillin Sodium/ 3,000 MG Q6H 07/05 2000 AC 07/07 Sulbactam Sodium IV 1440 Sodium Chloride 100 ML Atenolol 12.5 MG ONCE ONE 07/07 1015 DC 07/07 PO 07/07 1016 1225 Atenolol 25 MG DAILY 07/07 1000 DC PO Atenolol 25 MG 07/06 1000 AC PO Calcium 600 MG BID 07/05 220 AC 07/07 PO 0825 Duloxetine HCl 30 MG Q12 07/05 220 AC 07/07 PO 0825 Enoxaparin Sodium 40 MG DAILY 07/05 1717 AC 07/07 SC 0824 Ferrous Sulfate 325 MG DAILY 07/06 1000 AC 07/07 PO 0825 Lamotrigine 150 MG Q12 07/05 2200 AC 07/07 PO 0824 Levetiracetam 500 MG 7:30 AM, & 4:30 PM 07/07 0730 AC 07/07 PO 0824 Levetiracetam 500 MG 7:30 AM, & 4:30 PM 07/06 1630 DC 07/06 PO 1634 Morphine Sulfate 4 MG Q4P PRN 07/05 1600 AC IV Multivitamins 1 TAB DAILY 07/06 1000 AC 07/07 Therapeutic PO 0825 Oxycodone/ 1 TAB Q6P PRN 07/05 1600 AC Acetaminophen PO Sodium Chloride 1,000 ML Q13H 07/05 1645 AC 07/07 IV 0513 Last 24 Hrs of Lab/Branden Results Last 24 Hrs of Labs/Mics: Laboratory Tests 07/07/16 0620: Anion Gap 10, Estimated GFR > 60, BUN/Creatinine Ratio 40.0 H, CBC w Diff NO MAN DIFF REQ, RBC 2.71 L, MCV 91.7, MCH 30.5, RDW 14.8 H, MPV 7.9, Gran % 89.7 H, Lymphocytes % 1.9 L, Monocytes % 8.3, Eosinophils % 0.1, Basophils % 0 L, Absolute Granulocytes 14.7 H, Absolute Lymphocytes 0.3 L, Absolute Monocytes 1.4 H, Absolute Eosinophils 0, Absolute Basophils 0, PUBS MCHC 33.2 Microbiology 07/07 620 BLOOD: Blood Culture - RECD 07/07 605 BLOOD: Blood Culture - RECD Assessment/Plan Assessment: 89-year-old female with a past medical history of depression, hypertension, history of seizures, iron deficiency anemia who presents after a choking spell, admitted for aspiraton pneumonia. WBC trending down although patient continues to be febrile with Tmax up to 102. Problem list: 1. Aspiration pneumonia secondary to choking spell on the food 2. History of hypertension 3. History of depression 4. History of epilepsy/seizures Plans: * Continue IV Unasyn - day #3 * IV normal saline at 75 mL per hour * Check CBC daily, trend WBC - decreased to 16 today * Passed MBS - puree and thin * Continue with all her home medications * DVT prophylaxis at all times with subcutaneous Lovenox * Mild pain pathway * Code: DNR/DNI Problem List: 1. Left hip pain 2. Muscle strain 3. Hip pain, acute 4. Elevated blood pressure 5. Anemia 6. Seizure disorder 7. Seizure 8. Fall 9. Chest pain 10. Respiratory failure 11. Observation of foreign body of airway 12. Aspiration pneumonia 13. Multiple rib fractures Pain Ratin Pain Location: 0 Pain Goal: Remain pain free Pain Plan: Mild pain pathway Tomorrow's Labs & Rationales: CBC BEP
[2016-07-07 06:42] VITALS: BP 160/60
[2016-07-07 07:37] VITALS: BP 150/60
--- NOTE | 2016-07-07 08:04 | NUR ---
AT APPROX 0600 [facility] ALERTED THIS RN THAT VITALS WERE FOLLOWS: BP 160/60, HR 126 (RE-CHECKED MANUALLY), RR 20, TEMP 102 RECTAL, 92% 2L NC. MD POTTER MADE AWARE. EKG AND BLOOD CULTURES ORDERED AND COMPLETE. EKG SHOWN TO . STATED INCREASED HR WAS MOST LIKELY R/T FEVER AND NOT AFIB. WILL CONTINUE TO CLOSELY MONITOR.
[2016-07-07 08:05] LABS: ABSOLUTE BASOPHIL COUNT 0 /CUMM (0.0-0.2); ABSOLUTE EOSINOPHIL COUNT 0 /CUMM (0.0-0.7); ABSOLUTE GRANULOCYTE CT 14.7 /CUMM (1.4-6.5); ABSOLUTE LYMPH COUNT 0.3 /CUMM (1.2-3.4); ABSOLUTE MONOCYTE COUNT 1.4 /CUMM (0.10-0.60); BASOPHIL % 0 % (0.0-2.0); EOSINOPHIL % 0.1 % (0-5); GRANULOCYTE % 89.7 % (42.2-75.2); HEMATOCRIT 24.9 % (37-47); MEAN CORPUSCULAR HGB 30.5 PG (27.0-31.0); MEAN CORPUSCULAR HGB CONC 33.2 G/DL (33.0-37.0); MEAN CORPUSCULAR VOLUME 91.7 FL (81.0-99.0); MEAN PLATELET VOLUME 7.9 FL (7.4-10.4); PLATELET COUNT 116 /CUMM (130-400); RBC DISTRIBUTION WIDTH 14.8 % (11.5-14.5); RED BLOOD CELL CT 2.71 /CUMM (4.20-5.40)
[2016-07-07 09:01] LABS: WHITE BLOOD CELL COUNT 16.4 /CUMM (4.8-10.8)
--- NOTE | 2016-07-07 14:35 | RADIOLOGY REPORT ---
EXAMINATION: XR MODIFIED BARIUM SWALLOW CLINICAL INFORMATION: Aspiration risk. COMPARISON: None. TECHNIQUE: Fluoroscopic assistance was provided during a modified barium swallow performed in coordination with the speech pathology service. FLUOROSCOPY TIME: 1 minute, 2 seconds. FINDINGS: The modified barium swallow examination was performed in cooperation with the speech pathologist using dynamic fluoroscopic imaging in a lateral projection. The patient's swallowing function was observed during administration of apple sauce puree, honey, nectar, and thin barium contrast. Patient was given bread but was unable to sufficiently chew and orally prepare the solid bolus. There was some retention of applesauce puree within the vallecula. Ater the applesauce, there was no significant retention of the honey, nectar or thin barium contrast. No episodes of tracheal aspiration or penetration. Please refer to the speech pathology report regarding their assessment and treatment recommendations. IMPRESSION: No episodes of tracheal aspiration or penetration.
[2016-07-07 14:43] VITALS: BP 130/60
--- NOTE | 2016-07-07 15:18 | NUR ---
Physical Therapy: Consult recieved and chart reviewed. Pt assist x2 SPT bed to chair at baseline. W/c bound after. Acute skilled PT is not indicated at this time.
--- NOTE | 2016-07-07 19:16 | PN- Att Addend ---
Attending Addendum Attending Brief Note Patient still very weak but seems a little bit brighter than yesterday and spiked a temperature overnight and other vital signs are stable isn't seen and examined. White count is slowly coming down but still elevated at 16,000. Her potassium is 3.0 will replace. Check all the other cultures continue present treatments and advance her diet a little bit. Current Medications Sig/Thalia Start time Last Medication Dose Route Stop Time Status Admin Acetaminophen 1,000 MG ONCE ONE 07/07 0630 DC 07/07 N/A 1 UNIT IV 07/07 0644 0620 Acetaminophen 650 MG Q6P PRN 07/05 1600 AC 07/07 PO 1643 Ampicillin Sodium/ 3,000 MG Q6H 07/05 2000 AC 07/07 Sulbactam Sodium IV 1440 Sodium Chloride 100 ML Atenolol 12.5 MG ONCE ONE 07/07 1015 DC 07/07 PO 07/07 1016 1225 Atenolol 25 MG DAILY 07/07 1000 DC PO Atenolol 25 MG 07/06 1000 AC PO Calcium 600 MG BID 07/05 2200 AC 07/07 PO 0825 Duloxetine HCl 30 MG Q12 07/05 2200 AC 07/07 PO 0825 Enoxaparin Sodium 40 MG DAILY 07/05 1717 AC 07/07 SC 0824 Ferrous Sulfate 325 MG DAILY 07/06 1000 AC 07/07 PO 0825 Lamotrigine 150 MG Q12 07/05 2200 AC 07/07 PO 0824 Levetiracetam 500 MG 7:30 AM, & 4:30 PM 07/07 0730 AC 07/07 PO 1643 Levetiracetam 500 MG 7:30 AM, & 4:30 PM 07/06 1630 DC 07/06 PO 1634 Morphine Sulfate 2 MG Q4P PRN 07/07 1515 AC IV Morphine Sulfate 4 MG Q4P PRN 07/05 1600 DC IV Multivitamins 1 TAB DAILY 07/06 1000 AC 07/07 Therapeutic PO 0825 Oxycodone/ 1 TAB Q6P PRN 07/05 1600 AC Acetaminophen PO Potassium Chloride 10 MEQ ONCE ONE 07/07 1615 DC 07/07 IV 07/07 1616 1830 Potassium Chloride 10 MEQ ONCE ONE 07/07 1515 DC 07/07 IV 07/07 1516 1643 Potassium Chloride 40 MEQ BID 07/07 1501 AC 07/07 PO 07/08 0000 1656 Sodium Chloride 1,000 ML Q13H 07/05 1645 AC 07/07 IV 0513 Laboratory Tests 07/07/ 0620: Anion Gap 10, Estimated GFR > 60, BUN/Creatinine Ratio 40.0 H, CBC w Diff NO MAN DIFF REQ, RBC 2.71 L, MCV 91.7, MCH 30.5, RDW 14.8 H, MPV 7.9, Gran % 89.7 H, Lymphocytes % 1.9 L, Monocytes % 8.3, Eosinophils % 0.1, Basophils % 0 L, Absolute Granulocytes 14.7 H, Absolute Lymphocytes 0.3 L, Absolute Monocytes 1.4 H, Absolute Eosinophils 0, Absolute Basophils 0, PUBS MCHC 33.2 Microbiology Date/Time Procedure - Status Source Growth 07/07 620 Blood Culture - RECD BLOOD 07/07 06 Blood Culture - RECD BLOOD Vital Signs Date Time Temp Pulse Resp B/P Pulse O2 O2 Flow FiO2 Ox Delivery Rate 07/07 1830 100.6 07/07 1643 100.6 07/07 1529 Room Air 2.0L 07/07 1525 Room Air 2.0L 07/07 1443 100.6 82 20 130/60 95 Room Air 07/07 1225 96 118/60 07/07 1220 100 150/60 Intake & Output 07/07 1600 Intake Total 836 Output Total Balance 836 Intake, IV 600 Intake, Oral 236 Number 2 Bowel Movements Patient 136 lb Weight
--- NOTE | 2016-07-07 19:41 | NUR ---
PT AFEBRILE @ 1600 100.6 RECTALLY, ADMINISTERED 650 MG PO ACETAMINOPHEN, RECHECKED TEMP @ 100.6 RECTALLY, INFORMED MD MUÑIZ- IF PT REMAINS FEBRILE- [place] ACETAMINOPHEN CAN BE ADMINISTERED- THIS INFORMATION WAS PASSED ON TO THE ONCOMING RN. WILL CONTINUE TO MONITOR.
[2016-07-07 22:49] VITALS: BP 126/52
[2016-07-08 06:19] VITALS: BP 124/70
--- NOTE | 2016-07-08 06:27 | PN- Housestaff ---
See Addendum Subjective Follow-up For: Aspiration pneumonia Persistent fever History of hypertension History of depression History of epilepsy/seizures Subjective: Patient is seen and examined at bedside. She is resting comfortably in bed with no acute complaints. Awake and alert but confused/disoriented. Patient continues to spike a fever. Review of Systems Constitutional: Reports: see HPI. Objective Last 24 Hrs of Vital Signs/I&O Vital Signs Date Time Temp Pulse Resp B/P Pulse O2 O2 Flow FiO2 Ox Delivery Rate 07/08 0928 114 124/70 07/08 0800 Room Air 2.0L 07/08 0619 98.4 114 22 124/70 90 Nasal 2.0L Cannula 07/08 0000 94 Nasal 2.0L Cannula 07/07 2249 100.6 84 20 126/52 92 Nasal 2.0L Cannula 07/07 2000 Nasal 2.0L Cannula 07/07 1830 100.6 07/07 1800 100.6 07/07 1643 100.6 07/07 1529 Room Air 2.0L 07/07 1525 Room Air 2.0L 07/07 1443 100.6 82 20 130/60 95 Room Air 07/07 1225 96 118/60 07/07 1220 100 150/60 Intake & Output 07/08 1600 07/08 0800 07/08 0000 Intake Total Output Total Balance Number 2 3 Bowel Movements Output, Urine Physical Exam General Appearance: Cooperative, No Acute Distress, Confused Other Physical Findings: Skin No Rashes, No Breakdown HEENT Atraumatic, PERRLA Neck Supple, No JVD Lymphatic Axillary nl, Cervical nl Cardiovascular Regular Rate, Normal S1, Normal S2 Lungs bibasilar crackles - improving, decreased breath sounds bilaterally Abdomen Normal Bowel Sounds, Soft, No Tenderness Neurological Normal Gait, Normal Speech, Strength at 5/5 X4 Ext, Normal Tone Extremities No Clubbing, No Cyanosis, No Edema Vascular Normal Pulses, Pulses Symmetrical Current Medications: Current Medications Sig/Thalia Start time Last Medication Dose Route Stop Time Status Admin Acetaminophen 650 MG .STK-MED ONE 07/07 1543 DC PO 07/07 1544 Acetaminophen 650 MG Q6P PRN 07/05 1600 AC 07/07 PO 1643 Ampicillin Sodium/ 3,000 MG Q6H 07/05 2000 AC 07/08 Sulbactam Sodium IV 0922 Sodium Chloride 100 ML Atenolol 25 MG 07/06 1000 AC 07/08 PO 927 Calcium 600 MG BID 07/05 2200 AC 07/08 PO 927 Duloxetine HCl 30 MG Q12 07/05 2200 AC 07/08 PO 927 Enoxaparin Sodium 40 MG DAILY 07/05 1717 AC 07/08 SC 28 Ferrous Sulfate 325 MG DAILY 07/06 1000 AC 07/08 PO 28 Lamotrigine 150 MG Q12 07/05 2200 AC 07/08 PO 927 Levetiracetam 500 MG 7:30 AM, & 4:30 PM 07/07 07 AC 07/08 PO 0632 Morphine Sulfate 2 MG Q4P PRN 07/07 1515 AC IV Morphine Sulfate 4 MG Q4P PRN 07/05 1600 DC IV Multivitamins 1 TAB DAILY 07/06 1000 AC 07/08 Therapeutic PO 927 Oxycodone/ 1 TAB Q6P PRN 07/05 1600 AC Acetaminophen PO Potassium Chloride 10 MEQ ONCE ONE 07/07 1615 DC 07/07 IV 07/07 1616 1830 Potassium Chloride 10 MEQ ONCE ONE 07/07 1515 DC 07/07 IV 07/07 1516 1643 Potassium Chloride 40 MEQ BID 07/07 1501 DC 07/07 PO 07/08 0000 2259 Sodium Chloride 1,000 ML Q13H 07/05 1645 AC 07/08 IV 0036 Last 24 Hrs of Lab/Branden Results Last 24 Hrs of Labs/Mics: Laboratory Tests 07/08/16 0955: Urine Color YEL, Urine Clarity CLEAR, Urine pH 6.0, Ur Specific Saffell 1.025, Urine Protein TRACE H, Urine Ketones NEG, Urine Nitrite NEG, Urine Bilirubin NEG, Urine Urobilinogen 0.2, Ur Leukocyte Esterase TRACE H, Ur Microscopic SEDIMENT EXAMINED, Urine RBC 5-10 H, Urine WBC RARE, Urine Hemoglobin NEG, Urine Glucose NEG 07/08/16 0710: Anion Gap 7, Estimated GFR > 60, BUN/Creatinine Ratio 35.0 H, CBC w Diff NO MAN DIFF REQ, RBC 2.52 L, MCV 92.0, MCH 31.2 H, RDW 14.3, MPV 8.8, Gran % 93.4 H, Lymphocytes % 2.3 L, Monocytes % 4.2, Eosinophils % 0.1, Basophils % 0 L, Absolute Granulocytes 21.7 H, Absolute Lymphocytes 0.5 L, Absolute Monocytes 1.0 H, Absolute Eosinophils 0, Absolute Basophils 0, PUBS MCHC 33.9 Microbiology 07/08 0955 URINE ROUT: Urine Culture - RECD Assessment/Plan Assessment: 89-year-old female with a past medical history of depression, hypertension, history of seizures, iron deficiency anemia who presents after a choking spell, admitted for aspiraton pneumonia. WBC trending up and patient continues to be febrile. Problem list: 1. Aspiration pneumonia secondary to choking spell on the food 2. History of hypertension 3. History of depression 4. History of epilepsy/seizures 5. Persistent fever Plans: * Continue IV Unasyn - day #4 * Decrease IV normal saline to 50 mL per hour as patient is tolerating the diet * Check CBC daily, trend WBC - increased to 23 today * Passed MBS - puree and thin * Follow UA and Ucx * Continue with all her home medications * DVT prophylaxis at all times with subcutaneous Lovenox * Mild pain pathway * Code: DNR/DNI Problem List: 1. Left hip pain 2. Muscle strain 3. Hip pain, acute 4. Elevated blood pressure 5. Anemia 6. Seizure disorder 7. Seizure 8. Fall 9. Chest pain 10. Respiratory failure 11. Observation of foreign body of airway 12. Aspiration pneumonia 13. Multiple rib fractures Pain Ratin Pain Location: 0 Pain Goal: Remain pain free Pain Plan: Mild pain pathway Tomorrow's Labs & Rationales: CBC BEP
[2016-07-08 08:24] LABS: ABSOLUTE BASOPHIL COUNT 0 /CUMM (0.0-0.2); ABSOLUTE EOSINOPHIL COUNT 0 /CUMM (0.0-0.7); ABSOLUTE GRANULOCYTE CT 21.7 /CUMM (1.4-6.5); ABSOLUTE LYMPH COUNT 0.5 /CUMM (1.2-3.4); BASOPHIL % 0 % (0.0-2.0); EOSINOPHIL % 0.1 % (0-5); HEMATOCRIT 23.2 % (37-47); MEAN CORPUSCULAR HGB 31.2 PG (27.0-31.0); MEAN CORPUSCULAR HGB CONC 33.9 G/DL (33.0-37.0); MEAN PLATELET VOLUME 8.8 FL (7.4-10.4); PLATELET COUNT 123 /CUMM (130-400); RBC DISTRIBUTION WIDTH 14.3 % (11.5-14.5); RED BLOOD CELL CT 2.52 /CUMM (4.20-5.40); WHITE BLOOD CELL COUNT 23.3 /CUMM (4.8-10.8)
--- NOTE | 2016-07-08 09:06 | NUR ---
WOUND CARE: REQUESTED TO EVALUATE PT FOR SKIN ALTERATION PRESENT ON ADMISSION - HX REVIEWED FROM CHART - PT OBSERVED IN BED - COCCYX NOTED WITH STAGE 2 PRESSURE INJURY ULCER 0.3 X 0.2 CM CLEAN RED DERMAL FILL - PERIWOUND UNREMARKABLE - NON DRNG - INC LARGE AMOUNT URINE AND SMALL STOOL- INC CARE PROVIDED AND MOISTURE BARRIER REAPPLIED IMPRESSION: STAGE 2 PRESSURE INJURY COCCYX RECOMMENDATION: CLEANSE COCCYX WITH NS FB MOISTURE BARRIER QS AND PRN - GROUP 2 MATTRESS - SIDE LYING POSITION WIB
[2016-07-08 09:19] LABS: GRANULOCYTE % 93.4 % (42.2-75.2)
--- NOTE | 2016-07-08 14:47 | PN- Att Addend ---
Attending Addendum Attending Brief Note Patient laying in bed in no respiratory distress not very responsive today. Patient still spiking low-grade temperatures despite antibiotic therapy, the blood cultures are negative so far urine culture is pending patient's barium swallow showed no aspiration. White count is up and will ask infectious diseases consultation guarding abnormalities in the white count and a fever despite antibiotic therapy. Might need an adjustment Current Medications Sig/Thalia Start time Last Medication Dose Route Stop Time Status Admin Acetaminophen 650 MG .STK-MED ONE 07/07 1543 DC PO 07/07 1544 Acetaminophen 650 MG Q6P PRN 07/05 1600 AC 07/07 PO 1643 Ampicillin Sodium/ 3,000 MG Q6H 07/05 2000 AC 07/08 Sulbactam Sodium IV 1321 Sodium Chloride 100 ML Atenolol 25 MG 07/06 1000 AC 07/08 PO 0928 Calcium 600 MG BID 07/05 2200 AC 07/08 PO 0928 Duloxetine HCl 30 MG Q12 07/05 2200 AC 07/08 PO 0928 Enoxaparin Sodium 40 MG DAILY 07/05 1717 AC 07/08 SC 0928 Ferrous Sulfate 325 MG DAILY 07/06 1000 AC 07/08 PO 0928 Influenza Virus 0.5 ML ONCE ONE 07/08 1415 DC Vaccine IM 07/08 1416 Lamotrigine 150 MG Q12 07/05 2200 AC 07/08 PO 0928 Levetiracetam 500 MG 7:30 AM, & 4:30 PM 07/07 0730 AC 07/08 PO 0632 Morphine Sulfate 2 MG Q4P PRN 07/07 1515 DC IV Morphine Sulfate 4 MG Q4P PRN 07/05 1600 DC IV Multivitamins 1 TAB DAILY 07/06 1000 AC 07/08 Therapeutic PO 0928 Oxycodone/ 1 TAB Q6P PRN 07/05 1600 DC Acetaminophen PO Pneumococcal 0.5 ML ONCE ONE 07/08 1415 DC Polyvalent Vaccine IM 07/08 1416 Potassium Chloride 10 MEQ ONCE ONE 07/07 1615 DC 07/07 IV 07/07 1616 1830 Potassium Chloride 10 MEQ ONCE ONE 07/07 1515 DC 07/07 IV 07/07 1516 1643 Potassium Chloride 40 MEQ BID 07/07 1501 DC 07/07 PO 07/08 0000 2259 Sodium Chloride 1,000 ML Q20H 07/08 1145 AC 07/08 IV 1156 Sodium Chloride 1,000 ML Q13H 07/05 1645 DC 07/08 IV 0036 Laboratory Tests 07/08/16 0955: Urine Color YEL, Urine Clarity CLEAR, Urine pH 6.0, Ur Specific [place] 1.025, Urine Protein TRACE H, Urine Ketones NEG, Urine Nitrite NEG, Urine Bilirubin NEG, Urine Urobilinogen 0.2, Ur Leukocyte Esterase TRACE H, Ur Microscopic SEDIMENT EXAMINED, Urine RBC 5-10 H, Urine WBC RARE, Urine Hemoglobin NEG, Urine Glucose NEG 07/08/16 0710: Anion Gap 7, Estimated GFR > 60, BUN/Creatinine Ratio 35.0 H, Total Bilirubin 0.6, Direct Bilirubin 0.3, AST 19, ALT 32, Alkaline Phosphatase 80, Total Protein 4.4 L, Albumin 2.5 L, CBC w Diff NO MAN DIFF REQ, RBC 2.52 L, MCV 92.0, MCH 31.2 H, RDW 14.3, MPV 8.8, Gran % 93.4 H, Lymphocytes % 2.3 L, Monocytes % 4.2, Eosinophils % 0.1, Basophils % 0 L, Absolute Granulocytes 21.7 H, Absolute Lymphocytes 0.5 L, Absolute Monocytes 1.0 H, Absolute Eosinophils 0, Absolute Basophils 0, PUBS MCHC 33.9 Microbiology Date/Time Procedure - Status Source Growth 07/08 1300 Respiratory Culture - COLB LOWER RESP 07/08 1300 Gram Stain - COLB LOWER RESP 07/08 0955 Urine Culture - RECD URINE ROUT Vital Signs Date Time Temp Pulse Resp B/P Pulse O2 O2 Flow FiO2 Ox Delivery Rate 07/08 928 114 124/70 07/08 0800 Room Air 2.0L Intake & Output 07/08 1600 Intake Total 995 Output Total 400 Balance 595 Intake, IV 275 Intake, Oral 720 Output, Urine 400
--- NOTE | 2016-07-08 15:06 | CT SCAN REPORT ---
EXAMINATION: CT CHEST WITH IV CONTRAST CT ABDOMEN AND PELVIS WITH IV CONTRAST CLINICAL INFORMATION: 89-year-old female with fever. Evaluate for pulmonary infiltrate and intra-abdominal pathology. COMPARISON: CXR from 07/05/2016. Pelvis radiograph, 07/31/2015. MRI left hip, 08/01/2015. TECHNIQUE: Multidetector CT imaging examination of the chest, abdomen and pelvis was performed with intravenous administration of 95 mL of Optiray 320. Axial images are displayed at 0.625 mm and 5 mm slice thickness. Coronal and sagittal reformatted images were generated at the technologist's workstation and submitted for review. DLP: 377 mGy-cm FINDINGS: CHEST - LUNGS and PLEURA: Mucus plugging of bilateral lower lobe bronchi with partial collapse/consolidation of the right lower lobe and complete collapse of the left lower lobe. Patchy airspace opacities within the posterior aspect of the right upper lobe, lateral segment of the middle lobe and left upper lobe/lingula. These findings are suspicious for recent aspiration event and development of aspiration pneumonia. [id number] bilateral pleural effusions. MEDIASTINUM: Moderate atherosclerotic calcification of coronary arteries and thoracic aorta. The ascending thoracic aorta measures up to 3.8 cm transverse diameter. No pericardial effusion. The esophagus is grossly unremarkable. The left thyroid lobe is larger than left. There are no discrete nodules within the mildly enlarged thyroid gland. LYMPHATICS: No pathologic sized axillary, hilar or mediastinal lymph nodes. CHEST WALL/BONES: There are several old and/or subacute rib fractures. Also, there are acute, bilateral rib fractures. For example, there are displaced fractures of the right lateral 3rd - 7th ribs and left anterolateral 6th and 7th ribs. Multiple thoracic vertebra exhibit mild height loss.. Also, there is a T7 compression fracture with approximately 50% anterior height loss, probably chronic. No acute fractures are seen. There is vertebroplasty cement within the compressed T12 vertebra. ABDOMEN AND PELVIS - HEPATOBILIARY: 1.4 cm cyst within the lateral segment of the left lobe of the liver. No suspicious hepatic lesion. There is a 2.5 cm rim calcified stone in the gallbladder neck. No overt gallbladder wall edema or pericholecystic inflammatory change. Common bile duct is dilated up to 1 cm and there is mild dilatation of the central intrahepatic ducts. PANCREAS: Pancreas is atrophied. No peripancreatic edema. SPLEEN: Unremarkable. ADRENAL GLANDS: Unremarkable. KIDNEYS, URETERS, BLADDER: Kidneys enhance symmetrically and there is no nephrolithiasis or hydronephrosis or perinephric edema. 0.8 cm cortical cyst at the upper pole of the right kidney. A cyst at the left lower pole measures up to 5.6 cm maximum dimension. This cyst has a thin septation also has a small, thin focus of calcification along its superior wall. There is no enhancing mural nodule. This is compatible with a benign, Bosniak category 2 cyst. The ureters and urinary bladder are unremarkable. GASTROINTESTINAL TRACT: Stomach is underdistended. Bowel loops are normal in size. The rectum, which measures 7.6 cm transverse, is distended with fecal material. There is an intact rectal anastomosis. Prominent stool is seen within the nondilated colon. No ascites or pneumoperitoneum. ABDOMINAL WALL: No acute findings. VASCULAR: There is atherosclerotic calcification of the abdominal aorta and branch vessels without aortic aneurysm. LYMPH NODES: No pathologic sized lymph nodes within the abdomen or pelvis. PELVIC VISCERA: The uterus and adnexa are unremarkable. No pelvic free fluid. OSSEOUS STRUCTURES: Within the lumbar spine, the vertebral endplates are concave, likely on the basis of chronic osteoporosis. There is chondrocalcinosis of intervertebral discs. The visualized internal fixation hardware of the proximal right femur is intact. There is been remote hardware removal from the left hip. There is an old hardware tract in the visualized proximal femur and apparent chronic synovial thickening and chronic erosions at the deformed left femoroacetabular joint, similar in appearance compared to the pelvis CT of 07/26/2015. No new fluid collections at the left hip compared to the prior pelvis CT or MRI from 08/01/2015. IMPRESSION: 1. Mucus plugging within lower lobe bronchi with partial collapse/consolidation of the right lower lobe and complete collapse of left lower lobe. These findings are suspicious for recent aspiration. Also, there are patchy airspace opacities in the posterior aspect of the right upper lobe, left upper lobe and lingula, likely representing aspiration pneumonia. [id number] bilateral pleural effusions. 2. Multiple old, bilateral rib fractures as well as multiple recent, displaced rib fractures. 3. Cholelithiasis without overt cholecystitis. Common bile duct is dilated up to 1 cm diameter. The intrahepatic bile ducts are mildly dilated, as well. 4. Prominent stool within the rectum and colon suggestive of constipation. No acute findings along the gastrointestinal tract.
--- NOTE | 2016-07-08 15:14 | Cons- Infect Disease ---
General Information and HPI Consulting Request Date of Consult: 07/08/16 Requested By: WICHO TAYLOR MD Reason for Consult: Persistent fever/increasing white blood cell count Exam Limitations: unable to give history, clinical condition, dementia History of Present Illness: This is an 89-year-old woman, resident of an assisted living, with a history of dementia, admitted on July 05 after choking on her lunch. On arrival to the emergency room she was hypoxic and afebrile. A food bolus was removed from the back of her throat. Laboratory data revealed a white blood cell count of 39,000 , BUN/creatinine 24 and 0.5, with normal liver enzymes. Chest x-ray was negative. She was begun on Unasyn for presumed aspiration. On July 06 she developed a fever to 101.3, which increased to 102 on July 07, since which she has had low-grade fevers. Her white blood cell count initially decreased to 16,000 by July 07, but was increased today. A modified barium swallow on July 07 showed no episodes of tracheal aspiration or penetration, and she has reportedly been eating without a problem. She is unable to provide any history at this time given her lethargy. Allergies/Medications Allergies: Coded Allergies: Opioids - Morphine Analogues (N/V, MADE JAMI 10/28/15) Home Med List: Acetaminophen (Tylenol Extra Strength) 500 MG TABLET 2 TAB PO TID PAIN CONTROL (Reported) Atenolol 25 MG TAB 1 TAB PO Wednesday BP/HEART (Reported) Calcium Carbonate/Vitamin D3 (Os-Carrillo 500+D3 Caplet) 1 EACH TABLET 1 TAB PO DAILY VITAMIN SUPPORT (Reported) Dextran 70/Hypromellose (Artificial Tears) 1 EACH DROPERETTE 1 DROP OP Q4H PRN DRY EYES - BOTH EYES (Reported) Duloxetine HCl 30 MG CAPSULE.DR 1 CAP PO Q12 DEPRESSION (Reported) Ferrous Sulfate 325 MG TABLET 1 TAB PO DAILY VITAMIN SUPPORT (Reported) Lamotrigine 150 MG TABLET 1 TAB PO Q12 SEIZURES (Reported) Multivitamin (One Daily Multivitamin) 1 TAB TAB 1 TAB PO DAILY SUPPLEMENT ( Reported) Past History Travel History Traveled to [place] past 21 day No Medical History Neurological: dementia, EPILEPSY EENT: cataracts Cardiovascular: hypertension Respiratory: NONE Gastrointestinal: NONE Hepatic: NONE Renal: URINARY RETENTION Psychiatric: NONE Blood Disorders: anemia Cancer(s): NONE History of MRSA: No History of VRE: No History of CDIFF: No Isolation History: Standard Surgical History Surgical History: cataract removal, masectomy (bilateral), LEFT HIP SURGERY AFTER FRACTURE with subsequent removal , PATIENT UNSURE oophorectomy breast cancer s/p bilateral mastectomy thyroidectomy See Admission History & Physical Examination Report for detailed history., status post thyroidectomy Family History Relations & Conditions If Any: MOTHER Relation not specified for: Essential hypertension Psychosocial History Where Do You Live? Extended Care Facility Services at Home: Nursing Primary Language: Barbadian Smoking Status: Never Smoked ETOH Use: denies use Functional Ability Ambulation: non-ambulatory, Wheelchair (usual means of mobilization and mobility function) (patient's ability to perform independent transfers is unclear) Review of Systems Review of Systems GI: Denies: diarrhea. Comments unobtainable Exam & Diagnostic Data Last 24 Hrs of Vital Signs/I&O Vital Signs Date Time Temp Pulse Resp B/P Pulse O2 O2 Flow FiO2 Ox Delivery Rate 07/08 0928 114 124/70 07/08 0800 Room Air 2.0L 07/08 0619 98.4 114 22 124/70 90 Nasal 2.0L Cannula 07/08 0000 94 Nasal 2.0L Cannula 07/07 2249 100.6 84 20 126/52 92 Nasal 2.0L Cannula 07/07 2000 Nasal 2.0L Cannula 07/07 1830 100.6 07/07 1800 100.6 07/07 1643 100.6 07/07 1529 Room Air 2.0L 07/07 1525 Room Air 2.0L Intake & Output 07/08 1600 07/08 0800 07/08 0000 Intake Total 995 Output Total 400 Balance 595 Intake, IV 275 Intake, Oral 720 Number 2 3 Bowel Movements Output, Urine 400 Physical Exam Other Physical Findings: She is lethargic, responsive only to pain. MAXIMUM TEMPERATURE 100.6. Skin reveals scattered ecchymoses. HEENT exam is negative. Neck is resistant to flexion and rotation. Lungs scattered rhonchi bilaterally. Heart regular rhythm with a 1/6 systolic ejection murmur. Abdomen is soft, no obvious tenderness, with positive bowel sounds. Back no CVA tenderness. Extremities no cyanosis, clubbing or edema. Neuro is without obvious focality. Last 24 Hours of Lab Results: Laboratory Tests 07/08 07/08 0955 0710 Chemistry Sodium (137 - 145 mmol/L) 143 Potassium (3.5 - 5.1 mmol/L) 3.9 Chloride (98 - 107 mmol/L) 106 Carbon Dioxide (22 - 30 mmol/L) 30 Anion Gap (5 - 16) 7 BUN (7 - 17 mg/dL) 14 Creatinine (0.5 - 1.0 mg/dL) 0.4 L Estimated GFR (>60 ml/min) > 60 BUN/Creatinine Ratio (7 - 25 %) 35.0 H Total Bilirubin (0.2 - 1.3 mg/dL) 0.6 Direct Bilirubin (< 0.4 mg/dL) 0.3 AST (14 - 36 U/L) 19 ALT (9 - 52 U/L) 32 Alkaline Phosphatase (<127 U/L) 80 Total Protein (6.3 - 8.2 g/dL) 4.4 L Albumin (3.5 - 5.0 g/dL) 2.5 L Hematology CBC w Diff NO MAN DIFF REQ WBC (4.8 - 10.8 /CUMM) 23.3 H RBC (4.20 - 5.40 /CUMM) 2.52 L Hgb (12.0 - 16.0 G/DL) 7.9 L Hct (37 - 47 %) 23.2 L MCV (81.0 - 99.0 FL) 92.0 MCH (27.0 - 31.0 PG) 31.2 H RDW (11.5 - 14.5 %) 14.3 Plt Count (130 - 400 /CUMM) 123 L MPV (7.4 - 10.4 FL) 8.8 Gran % (42.2 - 75.2 %) 93.4 H Lymphocytes % (20.5 - 51.1 %) 2.3 L Monocytes % (1.7 - 9.3 %) 4.2 Eosinophils % (0 - 5 %) 0.1 Basophils % (0.0 - 2.0 %) 0 L Absolute Granulocytes (1.4 - 6.5 /CUMM) 21.7 H Absolute Lymphocytes (1.2 - 3.4 /CUMM) 0.5 L Absolute Monocytes (0.10 - 0.60 /CUMM) 1.0 H Absolute Eosinophils (0.0 - 0.7 /CUMM) 0 Absolute Basophils (0.0 - 0.2 /CUMM) 0 PUBS MCHC (33.0 - 37.0 G/DL) 33.9 Urines Urine Color (YEL,AMB,STR) YEL Urine Clarity (CLEAR) CLEAR Urine pH (5.0 - 8.0) 6.0 Ur Specific [place] (1.001 - 1.035) 1.025 Urine Protein (NEG,<30 MG/DL) TRACE H Urine Ketones (NEG) NEG Urine Nitrite (NEG) NEG Urine Bilirubin (NEG) NEG Urine Urobilinogen (0.1 - 1.0 EU/dl) 0.2 Ur Leukocyte Esterase (NEG) TRACE H Ur Microscopic SEDIMENT EXAMINED Urine RBC (0 - 5 /HPF) 5-10 H Urine WBC (0 - 2 /HPF) RARE Urine Hemoglobin (NEG) NEG Urine Glucose (N MG/DL) NEG Last 24 Hours of Branden Results: Blood cultures July 05 negative Blood cultures July 07 negative Urine culture July 08 pending Diagnostic Data Recent Imaging Findings: Chest x-ray June 30, personally reviewed, negative Modified barium swallow July 07 no episodes of tracheal aspiration or penetration CT of the chest, abdomen and pelvis July 08 reveals bilateral upper lobe and lingular opacities; cholelithiasis with no evidence of acute cholecystitis; left hip with chronic erosions of the acetabulum and proximal femur, unchanged from previous studies Assessment/Plan Assessment/Plan Impression: This is an 89-year-old woman with underlying dementia admitted on July 05 after choking on her lunch, found to be afebrile with a marked leukocytosis and with a negative chest x-ray, treated empirically with Unasyn with an initial decrease in her white blood cell count, which is increased today, and with the development of fevers, which appear to be lower grade over the past [address] of the chest just performed earlier today revealing bilateral patchy opacities. Her clinical picture is consistent with the clinical suspicion of aspiration pneumonia. Her respiratory status appears to be somewhat improved; therefore am not convinced that her current regimen has failed. She does have bilateral pleural effusions, which are likely related to fluid overload, as she has received 5 L of fluid since admission, but the possibility of an empyema may need to be considered if her white blood cell count remains elevated. Her left hip findings on CT scan appear to be chronic and, therefore, unlikely to explain her recent fever and leukocytosis. At this time there is no evidence for any new , healthcare associated infection, with no diarrhea reported to suggest C. difficile and with her urinalysis negative. Suggestion: 1. Attempt to obtain a sputum for culture 2. Consider thoracentesis if her white blood cell count remains elevated 3. Continue Unasyn but would decrease to 1.5 grams IV every 8 hours Consult Acknowledgment - Thank you for your consult request.
[2016-07-08 15:23] VITALS: BP 120/60
[2016-07-08 22:28] VITALS: BP 130/60
[2016-07-09 05:52] VITALS: BP 140/62
--- NOTE | 2016-07-09 06:30 | PN- Housestaff ---
Subjective Follow-up For: Aspiration pneumonia History of hypertension History of depression History of epilepsy/seizures Subjective: Patient is seen and examined at bedside. Afebrile overnight. Resting comfortably in bed. No acute events reported overnight. Awake and alert but confused and disoriented. Slightly tachypneic yesterday evening but doing better after TRC treatment. Review of Systems Constitutional: Reports: see HPI. Objective Last 24 Hrs of Vital Signs/I&O Vital Signs Date Time Temp Pulse Resp B/P Pulse O2 O2 Flow FiO2 Ox Delivery Rate 07/09 0552 98.7 102 20 140/62 91 07/09 0000 94 Nasal 2.0L Cannula 07/08 2228 98.9 100 20 130/60 92 07/08 1656 Nasal 3.0L Cannula 07/08 1600 Nasal 2.0L Cannula 07/08 1523 99.7 104 24 120/60 90 07/08 0928 114 124/70 Intake & Output 07/09 1600 07/09 0800 07/09 0000 Intake Total 450 830 Output Total 500 Balance 450 330 Intake, IV 450 350 Intake, Oral 0 480 Number 1 Bowel Movements Output, Urine 500 Physical Exam General Appearance: Alert, No Acute Distress, Confused Other Physical Findings: Skin No Rashes, No Breakdown HEENT Atraumatic, PERRLA Neck Supple, No JVD Lymphatic Axillary nl, Cervical nl Cardiovascular Regular Rate, Normal S1, Normal S2 Lungs decreased breath sounds bilaterally, CTA Abdomen Normal Bowel Sounds, Soft, No Tenderness Neurological Normal Gait, Normal Speech, Strength at 5/5 X4 Ext, Normal Tone Extremities No Clubbing, No Cyanosis, No Edema Vascular Normal Pulses, Pulses Symmetrical Current Medications: Current Medications Sig/Thalia Start time Last Medication Dose Route Stop Time Status Admin Acetaminophen 650 MG .STK-MED ONE 07/08 1934 DC PO 07/08 1935 Acetaminophen 650 MG Q6P PRN 07/05 1600 AC 07/08 PO 1936 Albuterol Sulfate 3 ML BID 07/08 2200 AC 07/08 INH 1706 Ampicillin Sodium/ 1,500 MG Q8 07/08 2200 AC 07/09 Sulbactam Sodium IV 0551 Sodium Chloride 100 ML Ampicillin Sodium/ 3,000 MG Q6H 07/05 2000 DC 07/08 Sulbactam Sodium IV 1321 Sodium Chloride 100 ML Atenolol 25 MG 07/06 1000 AC 07/08 PO 927 Calcium 600 MG BID 07/05 2200 AC 07/08 PO 2225 Duloxetine HCl 30 MG Q12 07/05 2200 AC 07/08 PO 222 Enoxaparin Sodium 40 MG DAILY 07/05 1717 AC 07/08 SC 0928 Ferrous Sulfate 325 MG DAILY 07/06 1000 AC 07/08 PO 0928 Influenza Virus 0.5 ML ONCE ONE 07/08 1415 DC Vaccine IM 07/08 1416 Lamotrigine 150 MG Q12 07/05 2200 AC 07/08 PO 222 Levetiracetam 500 MG 7:30 AM, & 4:30 PM 07/07 0730 AC 07/09 PO 0552 Morphine Sulfate 2 MG Q4P PRN 07/07 1515 DC IV Multivitamins 1 TAB DAILY 07/06 1000 AC 07/08 Therapeutic PO 927 Oxycodone/ 1 TAB Q6P PRN 07/05 1600 DC Acetaminophen PO Pneumococcal 0.5 ML ONCE ONE 07/08 1415 DC Polyvalent Vaccine IM 07/08 1416 Sodium Chloride 1,000 ML Q20H 07/08 1145 AC 07/08 IV 2227 Sodium Chloride 1,000 ML Q13H 07/05 1645 DC 07/08 IV 0036 Last 24 Hrs of Lab/Branden Results Last 24 Hrs of Labs/Mics: Laboratory Tests 07/09/16 0720: Anion Gap 10, Estimated GFR > 60, BUN/Creatinine Ratio 30.0 H, CBC w Diff Pending, WBC Pending, RBC Pending, Hgb Pending, Hct Pending, MCV Pending, MCH Pending, RDW Pending, Plt Count Pending, MPV Pending, Gran % Pending, Lymphocytes % Pending, Monocytes % Pending, Eosinophils % Pending, Basophils % Pending, Absolute Granulocytes Pending, Absolute Lymphocytes Pending, Absolute Monocytes Pending, Absolute Eosinophils Pending, Absolute Basophils Pending, PUBS MCHC Pending 07/08/16 0955: Urine Color YEL, Urine Clarity CLEAR, Urine pH 6.0, Ur Specific [place] 1.025, Urine Protein TRACE H, Urine Ketones NEG, Urine Nitrite NEG, Urine Bilirubin NEG, Urine Urobilinogen 0.2, Ur Leukocyte Esterase TRACE H, Ur Microscopic SEDIMENT EXAMINED, Urine RBC 5-10 H, Urine WBC RARE, Urine Hemoglobin NEG, Urine Glucose NEG Microbiology 07/08 1300 LOWER RESP: Respiratory Culture - COLB 07/08 1300 LOWER RESP: Gram Stain - COLB 07/08 0955 URINE ROUT: Urine Culture - RECD Assessment/Plan Assessment: 89-year-old female with a past medical history of depression, hypertension, history of seizures, iron deficiency anemia who presents after a choking spell, admitted for aspiraton pneumonia. Patient has been afebrile but WBC remains elevated. Problem list: 1. Aspiration pneumonia secondary to choking spell on the food 2. History of hypertension 3. History of depression 4. History of epilepsy/seizures 5. Persistent fever Plans: * Continue IV Unasyn at decreased dose of 1.5g Q8 per ID rec - day #5 * Discontinue IVF as patient is tolerating the diet and hypernatremic * Check CBC daily, trend WBC * Follow UA and Ucx * Proceed with thoracentesis (tomorrow morning) * Follow pleural fluid analysis to rule out empyema * Continue with all her home medications * DVT prophylaxis at all times with subcutaneous Lovenox * Passed MBS - puree and thin * Mild pain pathway - no narcotics given AMS and per POA's request * Code: DNR/DNI Problem List: 1. Anemia 2. Seizure disorder 3. Respiratory failure 4. Observation of foreign body of airway 5. Aspiration pneumonia Pain Ratin Pain Location: 0 Pain Goal: Remain pain free Pain Plan: Mild pain pathway No narcotics per POA's request Tomorrow's Labs & Rationales: CBC to monitor for signs of infection
[2016-07-09 08:09] LABS: ABSOLUTE BASOPHIL COUNT 0 /CUMM (0.0-0.2); ABSOLUTE EOSINOPHIL COUNT 0 /CUMM (0.0-0.7); ABSOLUTE GRANULOCYTE CT 23.3 /CUMM (1.4-6.5); ABSOLUTE LYMPH COUNT 0.4 /CUMM (1.2-3.4); ABSOLUTE MONOCYTE COUNT 0.9 /CUMM (0.10-0.60); BASOPHIL % 0 % (0.0-2.0); EOSINOPHIL % 0 % (0-5); GRANULOCYTE % 94.6 % (42.2-75.2); HEMATOCRIT 23.9 % (37-47); MEAN CORPUSCULAR HGB 30.8 PG (27.0-31.0); MEAN CORPUSCULAR HGB CONC 33.3 G/DL (33.0-37.0); MEAN CORPUSCULAR VOLUME 92.4 FL (81.0-99.0); MEAN PLATELET VOLUME 8.3 FL (7.4-10.4); PLATELET COUNT 133 /CUMM (130-400); RBC DISTRIBUTION WIDTH 13.9 % (11.5-14.5); RED BLOOD CELL CT 2.58 /CUMM (4.20-5.40); WHITE BLOOD CELL COUNT 24.7 /CUMM (4.8-10.8)
--- NOTE | 2016-07-09 12:17 | PN- Infect Dx ---
Subjective Subjective: Afebrile without complaints. She is apparently eating well. No diarrhea reported. She has been placed on a straight cath protocol after a straight catheterization yesterday morning yielded 400 mL. Objective Last 24 Hrs of Vital Signs/I&O Vital Signs Date Time Temp Pulse Resp B/P Pulse O2 O2 Flow FiO2 Ox Delivery Rate 07/09 1147 93 Nasal 3.0L Cannula 07/09 1018 Room Air 2.0L 07/09 0552 98.7 102 20 140/62 91 07/09 0000 94 Nasal 2.0L Cannula 07/08 2228 98.9 100 20 130/60 92 07/08 1656 Nasal 3.0L Cannula 07/08 1600 Nasal 2.0L Cannula 07/08 1523 99.7 104 24 120/60 90 Intake & Output 07/09 1600 07/09 0800 07/09 0000 Intake Total 60 450 830 Output Total 500 Balance 60 450 330 Intake, IV 450 350 Intake, Oral 60 0 480 Number 1 1 Bowel Movements Output, Urine 500 Physical Exam Other Physical Findings: She is lethargic but arousable and appears in no acute distress Lungs decreased breath sounds bilaterally Heart regular rhythm with a 1/6 systolic ejection murmur Abdomen is soft, nontender with positive bowel sounds Extremities no cyanosis, clubbing or edema Results Last 24 Hours of Lab Results: Laboratory Tests 07/09 0720 Chemistry Sodium (137 - 145 mmol/L) 147 H Potassium (3.5 - 5.1 mmol/L) 3.5 Chloride (98 - 107 mmol/L) 108 H Carbon Dioxide (22 - 30 mmol/L) 29 Anion Gap (5 - 16) 10 BUN (7 - 17 mg/dL) 15 Creatinine (0.5 - 1.0 mg/dL) 0.5 Estimated GFR (>60 ml/min) > 60 BUN/Creatinine Ratio (7 - 25 %) 30.0 H Hematology CBC w Diff MAN DIFF ORDERED WBC (4.8 - 10.8 /CUMM) 24.7 H RBC (4.20 - 5.40 /CUMM) 2.58 L Hgb (12.0 - 16.0 G/DL) 7.9 L Hct (37 - 47 %) 23.9 L MCV (81.0 - 99.0 FL) 92.4 MCH (27.0 - 31.0 PG) 30.8 RDW (11.5 - 14.5 %) 13.9 Plt Count (130 - 400 /CUMM) 133 MPV (7.4 - 10.4 FL) 8.3 Gran % (42.2 - 75.2 %) 94.6 H Lymphocytes % (20.5 - 51.1 %) 1.6 L Monocytes % (1.7 - 9.3 %) 3.8 Eosinophils % (0 - 5 %) 0 Basophils % (0.0 - 2.0 %) 0 L Absolute Granulocytes (1.4 - 6.5 /CUMM) 23.3 H Segmented Neutrophils (42.2 - 75.2 %) 89 H Band Neutrophils (0.0 - 5.0 %) 6 H Absolute Lymphocytes (1.2 - 3.4 /CUMM) 0.4 L Lymphocytes (20.5 - 51.1 %) 2 L Monocytes (1.7 - 9.3 %) 3 Absolute Monocytes (0.10 - 0.60 /CUMM) 0.9 H Absolute Eosinophils (0.0 - 0.7 /CUMM) 0 Absolute Basophils (0.0 - 0.2 /CUMM) 0 Platelet Estimate (ADEQUATE) VERIFIED BY SMEAR Polychromasia 1+ Basophilic Stippling SLIGHT PUBS MCHC (33.0 - 37.0 G/DL) 33.3 Last 24 Hours of Branden Results: Blood cultures July 05 negative Blood cultures July 07 negative Urine culture June 30 negative Assessment/Plan Impression: Stable with respiratory status unchanged and with temperatures now normal on Unasyn Day 4 of treatment for presumed aspiration pneumonia, but with persistent leukocytosis. The recent CT scan does reveal bilateral pleural effusions, likely secondary to fluid overload, but, if her white blood cell count remains elevated, may need to consider a thoracentesis to rule out an empyema. Urinary retention noted, with patient now on a straight cath protocol, though her urine culture is negative. Suggestion: 1. Consider thoracentesis if her white blood cell count remains elevated 2. Continue Unasyn
--- NOTE | 2016-07-09 12:43 | PN- Att Addend ---
Attending Addendum Attending Brief Note 89-year-old white female was admitted after episode of choking after that she became unresponsive had the Heimlich maneuver was sent to the emergency room where she was unresponsive noisy labored breathing required oxygen immediately for respiratory failure was improved after the foreign body was removed from her throat also contributing factor for the failure is the fact she had some fractured ribs after the Heimlich maneuver. She is being treated for aspiration pneumonia and also noted that on admission she had a stage II decubitus in her coccyx. Today the patient is still drowsy. Patient was seen by infectious diseases. Her white count is still elevated blood cultures are negative so far. Continue close observation. The chest x-ray shows some bilateral small effusions. If it is any concerns my need the diagnostic tap. Current Medications Sig/Thalia Start time Last Medication Dose Route Stop Time Status Admin Acetaminophen 650 MG .STK-MED ONE 07/08 1934 DC PO 07/08 1935 Acetaminophen 650 MG Q6P PRN 07/05 1600 AC 07/08 PO 193 Albuterol Sulfate 3 ML BID 07/08 2200 AC 07/09 INH 1143 Ampicillin Sodium/ 1,500 MG Q8 07/08 2200 AC 07/09 Sulbactam Sodium IV 0551 Sodium Chloride 100 ML Ampicillin Sodium/ 3,000 MG Q6H 07/05 2000 DC 07/08 Sulbactam Sodium IV 1321 Sodium Chloride 100 ML Atenolol 25 MG 07/06 1000 AC 07/08 PO 0928 Calcium 600 MG BID 07/05 2200 AC 07/09 PO 1211 Duloxetine HCl 30 MG Q12 07/05 2200 AC 07/09 PO 1211 Enoxaparin Sodium 40 MG DAILY 07/05 1717 AC 07/09 SC 1211 Ferrous Sulfate 325 MG DAILY 07/06 1000 AC 07/09 PO 1211 Influenza Virus 0.5 ML ONCE ONE 07/08 1415 DC Vaccine IM 07/08 1416 Lamotrigine 150 MG Q12 07/05 2200 AC 07/09 PO 1211 Levetiracetam 500 MG 7:30 AM, & 4:30 PM 07/07 0730 AC 07/09 PO 0552 Morphine Sulfate 2 MG Q4P PRN 07/07 1515 DC IV Multivitamins 1 TAB DAILY 07/06 1000 AC 07/09 Therapeutic PO 1211 Oxycodone/ 1 TAB Q6P PRN 07/05 1600 DC Acetaminophen PO Pneumococcal 0.5 ML ONCE ONE 07/08 1415 DC Polyvalent Vaccine IM 07/08 1416 Sodium Chloride 1,000 ML Q20H 07/09 0830 CAN IV Sodium Chloride 1,000 ML Q20H 07/08 1145 DC 07/08 IV 2227 Laboratory Tests 07/09/16 0720: Anion Gap 10, Estimated GFR > 60, BUN/Creatinine Ratio 30.0 H, CBC w Diff MAN DIFF ORDERED, RBC 2.58 L, MCV 92.4, MCH 30.8, RDW 13.9, MPV 8.3, Gran % 94.6 H , Lymphocytes % 1.6 L, Monocytes % 3.8, Eosinophils % 0, Basophils % 0 L, Absolute Granulocytes 23.3 H, Segmented Neutrophils 89 H, Band Neutrophils 6 H, Absolute Lymphocytes 0.4 L, Lymphocytes 2 L, Monocytes 3, Absolute Monocytes 0.9 H, Absolute Eosinophils 0, Absolute Basophils 0, Platelet Estimate VERIFIED BY SMEAR, Polychromasia 1+, Basophilic Stippling SLIGHT, PUBS MCHC 33.3 Microbiology Date/Time Procedure - Status Source Growth 07/08 1300 Respiratory Culture - COLB LOWER RESP 07/08 1300 Gram Stain - COLB LOWER RESP Vital Signs Date Time Temp Pulse Resp B/P Pulse O2 O2 Flow FiO2 Ox Delivery Rate 07/09 1147 93 Nasal 3.0L Cannula 07/09 1018 Room Air 2.0L 07/09 0552 98.7 102 20 140/62 91 Intake & Output 07/09 1600 Intake Total 60 Output Total Balance 60 Intake, Oral 60 Number 1 Bowel Movements
[2016-07-09 15:29] VITALS: BP 120/60
[2016-07-09 22:24] VITALS: BP 150/60
--- NOTE | 2016-07-10 00:33 | NUR ---
PT FLU AND PNA VACCINE NOT ADMINISTERED R/T TEMP 101.5 @ 2552
--- NOTE | 2016-07-10 06:21 | PN- Housestaff ---
Subjective Follow-up For: Aspiration PNA Persistent fever Subjective: Patient is seen and examined at bedside. Continues to spike fevers. Patient is drowsy but arousable to tactile stimuli. Per POA (niece) patient looks more confused/lethargic compared to her baseline. No acute events reported overnight. Awaiting thoracentesis. Review of Systems Constitutional: Reports: see HPI. Objective Last 24 Hrs of Vital Signs/I&O Vital Signs Date Time Temp Pulse Resp B/P Pulse O2 O2 Flow FiO2 Ox Delivery Rate 07/10 1424 Room Air 2.0L 07/10 1416 98.4 95 20 140/70 93 07/10 1235 101.6 07/10 1046 88 142/60 07/10 0903 94 Nasal 3.0L Cannula 07/10 0800 Nasal 3.0L Cannula 07/10 0633 100.2 88 20 142/60 92 07/10 0444 101.0 07/10 0301 101.0 07/10 0202 101.3 07/10 0000 93 Nasal 3.0L Cannula 07/09 2229 101.5 07/09 2224 101.2 100 20 150/60 93 07/09 2130 101.2 07/09 1940 91 Nasal 3.0L Cannula Intake & Output 07/10 1600 07/10 0800 07/10 0000 Intake Total 240 150 420 Output Total 0 250 250 Balance 240 -100 170 Intake, IV 0 150 300 Intake, Oral 240 120 Number 1 Bowel Movements Output, Urine 0 250 250 Physical Exam General Appearance: Alert, Oriented X3, Cooperative, No Acute Distress Other Physical Findings: HEENT Atraumatic, PERRLA, 1x1cm benign-appearing nodule on the hard palate Neck Supple, No JVD Lymphatic Axillary nl, Cervical nl Cardiovascular Regular Rate, Normal S1, Normal S2 Lungs decreased breath sounds bilaterally, CTA Abdomen Normal Bowel Sounds, Soft, No Tenderness Neurological Normal Gait, Normal Speech, Strength at 5/5 X4 Ext, Normal Tone Extremities No Clubbing, No Cyanosis, No Edema Vascular Normal Pulses, Pulses Symmetrical Current Medications: Current Medications Sig/Thalia Start time Last Medication Dose Route Stop Time Status Admin Acetaminophen 1,000 MG ONCE ONE 07/09 2100 DC 07/09 N/A 1 UNIT IV 07/09 2114 2130 Acetaminophen 650 MG Q6P PRN 07/09 1430 AC 07/10 NE 1235 Acetaminophen 650 MG Q6P PRN 07/05 1600 AC 07/08 PO 1937 Albuterol Sulfate 3 ML BID 07/080 AC 07/10 INH 0902 Ampicillin Sodium/ 1,500 MG Q8 07/08 2200 DC 07/10 Sulbactam Sodium IV 0500 Sodium Chloride 100 ML Atenolol 25 MG 07/06 1000 AC 07/10 PO 1046 Calcium 600 MG BID 07/05 2200 AC 07/10 PO 1046 Ceftazidime 1,000 MG Q12H 07/10 1400 AC IV Duloxetine HCl 30 MG Q12 07/05 2200 AC 07/10 PO 1046 Enoxaparin Sodium 40 MG DAILY 07/05 1717 AC 07/09 SC 1211 Ferrous Sulfate 325 MG DAILY 07/06 1000 AC 07/10 PO 1046 Lamotrigine 150 MG Q12 07/05 2200 AC 07/10 PO 1046 Levetiracetam 500 MG 7:30 AM, & 4:30 PM 07/07 07 AC 07/10 PO 0847 Multivitamins 1 TAB DAILY 07/06 1000 AC 07/10 Therapeutic PO 1046 Vancomycin HCl 1,000 MG Q24H 07/10 1400 AC Sodium Chloride 250 ML IV Last 24 Hrs of Lab/Branden Results Last 24 Hrs of Labs/Mics: Laboratory Tests 07/10/16 1517: Phlebotomy Draw Site R THORACENTESIS, Pleural pH 7.396 07/10/16 1512: Fluid WBC Pending, Fld Total RBCs Counted Pending 07/10/16 1512: Fluid Glucose 124, Fluid Total Protein < 2.0, Fluid Albumin 1.1, Fluid LDH 994, Fluid Amylase < 30 07/10/16 0645: Anion Gap 8, Estimated GFR > 60, BUN/Creatinine Ratio 30.0 H, PT 11.9, INR 1.13 , APTT 30, CBC w Diff MAN DIFF ORDERED, RBC 2.46 L, MCV 92.5, MCH 30.6, RDW 14.5, MPV 8.5, Gran % 94.6 H, Lymphocytes % 1.8 L, Monocytes % 3.4, Eosinophils % 0.2, Basophils % 0 L, Absolute Granulocytes 26.0 H, Absolute Lymphocytes 0.5 L, Absolute Monocytes 0.9 H, Absolute Eosinophils 0.1, Absolute Basophils 0, Platelet Estimate ADEQUATE, Polychromasia 1+, Hypochromic- Microcytic 2+, Anisocytosis 1+, PUBS MCHC 33.0 Microbiology 07/10 1512 BODY FLUID: Body Fluid Culture - RECD 07/10 1512 BODY FLUID: Gram Stain - RECD 07/10 1240 BLOOD: Blood Culture - RECD 07/10 1230 BLOOD: Blood Culture - RECD 07/10 1202 URINE ROUT: Urine Culture - COLB 07/10 1202 LOWER RESP: Respiratory Culture - CAN Cancelled: NO SPUTUM COLLECTED 07/10 1202 LOWER RESP: Gram Stain - CAN Cancelled: NO SPUTUM COLLECTED Assessment/Plan Assessment: 89-year-old female with a past medical history of depression, hypertension, history of seizures, iron deficiency anemia who presents after a choking spell, admitted for aspiraton pneumonia. Patient continues to spike fever despite being on Unasyn. Problem list: 1. Aspiration pneumonia secondary to choking spell on the food 2. History of hypertension 3. History of depression 4. History of epilepsy/seizures 5. Persistent fever Plans: * Discontinue IV Unasyn * Start IV vancomycin 1g IV daily and Fortaz 1g IV BID per ID rec * Check CBC daily, trend WBC * Repeat blood cultures and urine culture * Proceed with thoracentesis today * Follow pleural fluid analysis to rule out empyema * Consider LP given persistnet fevers * Cont to appreciate ID recs * Continue with all her home medications * DVT prophylaxis at all times with subcutaneous Lovenox * Passed MBS - puree and thin * Mild pain pathway - no narcotics given AMS and per POA's request * Code: DNR/DNI Problem List: 1. Left hip pain 2. Muscle strain 3. Hip pain, acute 4. Elevated blood pressure 5. Anemia 6. Seizure disorder 7. Seizure 8. Fall 9. Chest pain 10. Respiratory failure 11. Observation of foreign body of airway 12. Aspiration pneumonia 13. Multiple rib fractures Pain Ratin Pain Location: 0 Pain Goal: Remain pain free Pain Plan: Mild pain pathway Tomorrow's Labs & Rationales: CBC BEP
[2016-07-10 06:33] VITALS: BP 142/60
[2016-07-10 08:07] LABS: ABSOLUTE BASOPHIL COUNT 0 /CUMM (0.0-0.2); ABSOLUTE EOSINOPHIL COUNT 0.1 /CUMM (0.0-0.7); ABSOLUTE LYMPH COUNT 0.5 /CUMM (1.2-3.4); ABSOLUTE MONOCYTE COUNT 0.9 /CUMM (0.10-0.60); BASOPHIL % 0 % (0.0-2.0); EOSINOPHIL % 0.2 % (0-5); GRANULOCYTE % 94.6 % (42.2-75.2); HEMATOCRIT 22.7 % (37-47); MEAN CORPUSCULAR HGB 30.6 PG (27.0-31.0); MEAN CORPUSCULAR VOLUME 92.5 FL (81.0-99.0); MEAN PLATELET VOLUME 8.5 FL (7.4-10.4); PLATELET COUNT 158 /CUMM (130-400); RBC DISTRIBUTION WIDTH 14.5 % (11.5-14.5); RED BLOOD CELL CT 2.46 /CUMM (4.20-5.40); WHITE BLOOD CELL COUNT 27.5 /CUMM (4.8-10.8)
[2016-07-10 08:31] LABS: PT 11.9 SEC (9.4-12.5); PTT 30 SEC (25-37)
--- NOTE | 2016-07-10 10:48 | PN- Att Addend ---
Attending Addendum Attending Brief Note Patient in bed still a little lethargic at still having low-grade temps, still having a high white count as per ID will have a diagnostic thoracentesis later on today and depending on results we might have to adjust antibiotic treatment. Current Medications Sig/Thalia Start time Last Medication Dose Route Stop Time Status Admin Acetaminophen 1,000 MG ONCE ONE 07/09 2100 DC 07/09 N/A 1 UNIT IV 07/09 2114 2130 Acetaminophen 650 MG Q6P PRN 07/09 1430 AC 07/10 RI 0202 Acetaminophen 650 MG Q6P PRN 07/05 1600 AC 07/08 PO 1937 Albuterol Sulfate 3 ML BID 07/08 220 AC 07/10 INH 0902 Ampicillin Sodium/ 1,500 MG Q8 07/08 2200 AC 07/10 Sulbactam Sodium IV 0500 Sodium Chloride 100 ML Atenolol 25 MG 07/06 1000 AC 07/10 PO 1046 Calcium 600 MG BID 07/05 2200 AC 07/10 PO 1046 Duloxetine HCl 30 MG Q12 07/05 2200 AC 07/10 PO 1046 Enoxaparin Sodium 40 MG DAILY 07/05 1717 AC 07/09 SC 1211 Ferrous Sulfate 325 MG DAILY 07/06 1000 AC 07/10 PO 1046 Lamotrigine 150 MG Q12 07/05 2200 AC 07/10 PO 1046 Levetiracetam 500 MG 7:30 AM, & 4:30 PM 07/07 0730 AC 07/10 PO 0847 Multivitamins 1 TAB DAILY 07/06 1000 AC 07/10 Therapeutic PO 1046 Laboratory Tests 07/10/16 0645: Anion Gap 8, Estimated GFR > 60, BUN/Creatinine Ratio 30.0 H, PT 11.9, INR 1.13 , APTT 30, CBC w Diff MAN DIFF ORDERED, RBC 2.46 L, MCV 92.5, MCH 30.6, RDW 14.5, MPV 8.5, Gran % 94.6 H, Lymphocytes % 1.8 L, Monocytes % 3.4, Eosinophils % 0.2, Basophils % 0 L, Absolute Granulocytes 26.0 H, Absolute Lymphocytes 0.5 L, Absolute Monocytes 0.9 H, Absolute Eosinophils 0.1, Absolute Basophils 0, Platelet Estimate ADEQUATE, Polychromasia 1+, Hypochromic- Microcytic 2+, Anisocytosis 1+, PUBS MCHC 33.0 Microbiology Date/Time Procedure - Status Source Growth 07/10 800 Body Fluid Culture - COLB BODY FLUID 07/10 800 Gram Stain - COLB BODY FLUID 07/09 1421 Respiratory Culture - COLB LOWER RESP 07/09 1421 Gram Stain - COLB LOWER RESP Vital Signs Date Time Temp Pulse Resp B/P Pulse O2 O2 Flow FiO2 Ox Delivery Rate 07/10 1046 88 142/60 07/10 0903 94 Nasal 3.0L Cannula 07/10 0800 Nasal 3.0L Cannula 07/10 0633 100.2 88 20 142/60 92 07/10 0444 101.0 07/10 0301 101.0
[2016-07-10 14:16] VITALS: BP 140/70
--- NOTE | 2016-07-10 15:38 | RADIOLOGY REPORT ---
EXAMINATION:\H\ \N\XR CHEST CLINICAL INFORMATION: Status post right thoracentesis. COMPARISON: 07/05/[address] from 07/08/2016. TECHNIQUE: Single portable AP view of the chest was obtained. FINDINGS: The lungs are well expanded. And improvement of the previous right pleural effusion. Right midlung patchy opacity remains. Small left pleural effusion noted with left mid to lower lung airspace opacity. No pneumothorax. The cardiomediastinal silhouette is unchanged, with a calcified aorta. IMPRESSION: Improvement of the previous right pleural effusion. Right midlung patchy opacity remains, no pneumothorax. Small left pleural effusion with mid to lower lung airspace opacity.
--- NOTE | 2016-07-10 16:23 | ULTRASOUND REPORT ---
CLINICAL HISTORY: This patient is a 89-year-old female with bilateral pleural effusions, right greater than left. The patient is referred to interventional radiology for ultrasound-guided thoracentesis. PROCEDURE: Ultrasound-guided thoracentesis. COMPARISON: None. ACCESS: 5 [place] Y[place]h needle/catheter PROCEDURALIST: Keron Maynard D.O.. MEDICATIONS: 10 mL of 1% lidocaine SQ. COMPLICATIONS: None. ESTIMATED BLOOD LOSS: <5 mL. SPECIMENS: 600 mL of sanguinous colored fluid. PROCEDURE NOTE: Appropriate pre-procedure medical history and imaging studies were reviewed. Informed consent was obtained from the patient's power of real estate associate attorney prior to the procedure. During this process, the procedure and potential alternatives were explained along with the intended outcome and benefits. The risks of the procedure, including the possibility of an unsuccessful procedure, as well as the risk of not doing the procedure, were discussed. The patient's power of real estate associate attorney was given the opportunity to ask questions regarding the procedure and appeared competent to make decisions. A signed consent form documenting this discussion was placed in the medical record. A time-out procedure was performed. The patient was brought to the ultrasound department and placed in the left decubitus position. Ultrasound images of the right thorax were obtained to localize a moderate pleural effusion. Images were permanently saved to the record. An area of the patient's right back was prepped and draped in the standard sterile fashion. 10 mL of 1% lidocaine was used to obtain local anesthesia of the skin and deeper tissues. A standard small-bore needle was introduced to sample fluid and demonstrated a safe access route. There was no evidence of traversing adjacent organs or vascular structures. A 5 [place] Y[place]h needle/catheter was utilized for access. 600 mL of segment is-colored fluid was aspirated before drainage ceased. The catheter was removed and a sterile dressing applied. The patient tolerated the procedure well without evidence of immediate complications. FINDINGS: Moderate simple right pleural effusion. IMPRESSION: Successful diagnostic and therapeutic ultrasound-guided right thoracentesis yielding 600 mL of sanguinous colored fluid. PLAN: 1. A postprocedure chest x-ray was ordered and will be dictated separately. 2. The patient was stable after the procedure and will be transferred back to her medical room with instructions after standard monitoring.
[2016-07-10 22:30] VITALS: BP 140/74
--- NOTE | 2016-07-11 00:32 | NUR ---
ALERT TO PERSON. VITAL SIGNS STABLE. ON 3L OXYGEN VIA NASAL CANNULA. PATIENT TURNED AND REPOSITIONED. STRAIGHT CATHED AT 2100
[2016-07-11 06:30] VITALS: BP 150/68
[2016-07-11 08:06] LABS: ABSOLUTE BASOPHIL COUNT 0 /CUMM (0.0-0.2); ABSOLUTE EOSINOPHIL COUNT 0.1 /CUMM (0.0-0.7); ABSOLUTE GRANULOCYTE CT 29.5 /CUMM (1.4-6.5); ABSOLUTE LYMPH COUNT 0.3 /CUMM (1.2-3.4); ABSOLUTE MONOCYTE COUNT 0.7 /CUMM (0.10-0.60); BASOPHIL % 0 % (0.0-2.0); EOSINOPHIL % 0.2 % (0-5); GRANULOCYTE % 96.4 % (42.2-75.2); HEMATOCRIT 22.2 % (37-47); MEAN CORPUSCULAR HGB 31.3 PG (27.0-31.0); MEAN CORPUSCULAR HGB CONC 33.8 G/DL (33.0-37.0); MEAN CORPUSCULAR VOLUME 92.6 FL (81.0-99.0); MEAN PLATELET VOLUME 8.3 FL (7.4-10.4); PLATELET COUNT 176 /CUMM (130-400); RBC DISTRIBUTION WIDTH 14.6 % (11.5-14.5)
[2016-07-11 10:11] LABS: WHITE BLOOD CELL COUNT 30.6 /CUMM (4.8-10.8)
--- NOTE | 2016-07-11 11:39 | PN- Housestaff ---
Subjective Follow-up For: Aspiration PNA Persistent fever Subjective: Patient seen and examined this morning. She was drowsy but arousable. She did not answer the questions which she was lethargic and confused. Review of Systems Constitutional: Reports: see HPI. Objective Last 24 Hrs of Vital Signs/I&O Vital Signs Date Time Temp Pulse Resp B/P Pulse O2 O2 Flow FiO2 Ox Delivery Rate 07/11 1114 93 Nasal 3.0L Cannula 07/11 0630 98.7 94 20 150/68 93 Nasal Cannula 07/11 0000 Nasal 3.0L Cannula 07/10 2230 96.8 95 18 140/74 95 Room Air 07/10 1840 92 Nasal 3.0L Cannula 07/10 1600 Nasal 3.0L Cannula 07/10 1424 Room Air 2.0L 07/10 1416 98.4 95 20 140/70 93 07/10 1235 101.6 Intake & Output 07/11 1600 07/11 0800 07/11 0000 Intake Total 600 240 Output Total 280 Balance 320 240 Intake, IV 600 Intake, Oral 240 Number 0 Bowel Movements Output, Urine 280 Physical Exam General Appearance: Alert, Oriented X3, Cooperative Cardiovascular: Regular Rate, Normal S1, Normal S2, No Murmurs Lungs: decreased breath sounds bilaterally Abdomen: Normal Bowel Sounds, Soft, No Tenderness Extremities: No Clubbing, No Cyanosis, No Edema Current Medications: Current Medications Sig/Thalia Start time Last Medication Dose Route Stop Time Status Admin Acetaminophen 650 MG .STK-MED ONE 07/[address] 07/10 1231 Acetaminophen 650 MG Q6P PRN 07/09 1430 AC 07/10 CT 1235 Acetaminophen 650 MG Q6P PRN 07/05 1600 AC 07/08 PO 1937 Albuterol Sulfate 3 ML BID 07/08 220 AC 07/11 INH 1112 Ampicillin Sodium/ 1,500 MG Q8 07/08 2200 DC 07/10 Sulbactam Sodium IV 0500 Sodium Chloride 100 ML Atenolol 25 MG 07/06 1000 AC 07/10 PO 1046 Calcium 600 MG BID 07/05 2200 AC 07/11 PO 1015 Ceftazidime 1,000 MG Q12H 07/10 1400 AC 07/11 IV 0105 Dextrose/Sodium 1,000 ML Q13H 07/10 1730 DC Chloride IV Dextrose/Water 1,000 ML Q13H 07/10 1745 AC 07/10 IV 2350 Duloxetine HCl 30 MG Q12 07/05 2200 AC 07/10 PO 2326 Enoxaparin Sodium 40 MG DAILY 07/05 1717 AC 07/11 SC 1014 Ferrous Sulfate 325 MG DAILY 07/06 1000 AC 07/11 PO 1016 Lamotrigine 150 MG Q12 07/05 2200 AC 07/11 PO 1015 Levetiracetam 500 MG 7:30 AM, & 4:30 PM 07/07 07 AC 07/11 PO 0804 Multivitamins 1 TAB DAILY 07/06 1000 AC 07/11 Therapeutic PO 1015 Potassium Chloride 40 MEQ ONCE ONE 07/10 1715 DC 07/10 PO 07/10 171 1848 Potassium Chloride 10 MEQ ONCE ONE 07/10 1715 DC 07/10 IV 07/10 171 2321 Potassium Chloride 10 MEQ ONCE ONE 07/10 171 DC 07/10 IV 07/10 171 1849 Vancomycin HCl 1,000 MG Q24H 07/10 1400 AC 07/10 Sodium Chloride 250 ML IV 1815 Last 24 Hrs of Lab/Branden Results Last 24 Hrs of Labs/Mics: Laboratory Tests 07/11/16 0600: Anion Gap 6, Estimated GFR > 60, BUN/Creatinine Ratio 36.0 H, CBC w Diff MAN DIFF ORDERED, RBC 2.40 L, MCV 92.6, MCH 31.3 H, RDW 14.6 H, MPV 8.3, Gran % 96.4 H, Lymphocytes % 1.1 L, Monocytes % 2.3, Eosinophils % 0.2, Basophils % 0 L, Absolute Granulocytes 29.5 H, Segmented Neutrophils 85 H, Band Neutrophils 7 H, Absolute Lymphocytes 0.3 L, Lymphocytes 3 L, Monocytes 5, Absolute Monocytes 0.7 H, Absolute Eosinophils 0.1, Absolute Basophils 0, Normocytic RBCs VERIFIED, Normochromic RBCs VERIFIED, PUBS MCHC 33.8 07/10/16 1517: Phlebotomy Draw Site R THORACENTESIS, Pleural pH 7.396 07/10/16 1512: Fluid WBC 1980 H, Fld Total RBCs Counted [id number] H 07/10/16 1512: Lymphocytes 10, % Normal PMNs 78, Misc Hematology Test , Fluid Glucose 124, Fluid Total Protein < 2.0, Fluid Albumin 1.1, Fluid LDH 994, Fluid Amylase < 30 Microbiology 07/11 0636 URINE ROUT: Urine Culture - RECD 07/10 1512 BODY FLUID: Body Fluid Culture - RES 07/10 1512 BODY FLUID: Gram Stain - RES 07/10 1240 BLOOD: Blood Culture - RECD 07/10 1230 BLOOD: Blood Culture - RECD 07/10 1202 LOWER RESP: Respiratory Culture - CAN Cancelled: NO SPUTUM COLLECTED 07/10 1202 LOWER RESP: Gram Stain - CAN Cancelled: NO SPUTUM COLLECTED Assessment/Plan Assessment: 89-year-old female with a past medical history of depression, hypertension, history of seizures, iron deficiency anemia who presents after a choking spell, admitted for aspiraton pneumonia. Patient continues to spike fever despite being on Unasyn. Problem list: 1. Aspiration pneumonia secondary to choking spell on the food 2. History of hypertension 3. History of depression 4. History of epilepsy/seizures 5. Persistent fever Plans: * Discontinue IV Unasyn * Start IV vancomycin 1g IV daily and Fortaz 1g IV BID per ID rec * Check CBC daily, trend WBC * Repeat blood cultures and urine culture * Successful diagnostic and therapeutic ultrasound-guided right thoracentesis yielding 600 mL of sanguinous colored fluid. * Pleural fluid analysis to rule out empyema * Consider LP given persistnet fevers * Cont to appreciate ID recs * Continue with all her home medications * DVT prophylaxis at all times with subcutaneous Lovenox * Passed MBS - puree and thin * Mild pain pathway - no narcotics given AMS and per POA's request * Code: DNR/DNI Problem List: 1. Aspiration pneumonia Pain Ratin Pain Location: none Pain Goal: Remain pain free Pain Plan: Mild pain pathway Tomorrow's Labs & Rationales: CBC BEP
[2016-07-11 13:40] VITALS: BP 130/80
--- NOTE | 2016-07-11 15:50 | PN- Infect Dx ---
Subjective Subjective: MAXIMUM TEMPERATURE 101.6, with no fever in the past 24 hours. She is unable to provide any history. Objective Last 24 Hrs of Vital Signs/I&O Vital Signs Date Time Temp Pulse Resp B/P Pulse O2 O2 Flow FiO2 Ox Delivery Rate 07/11 1340 98.2 98 18 130/80 91 Nasal 2.0L Cannula 07/11 1114 93 Nasal 3.0L Cannula 07/11 0630 98.7 94 20 150/68 93 Nasal Cannula 07/11 0000 Nasal 3.0L Cannula 07/10 2230 96.8 95 18 140/74 95 Room Air 07/10 1840 92 Nasal 3.0L Cannula 07/10 1600 Nasal 3.0L Cannula Intake & Output 07/11 1600 07/11 0800 07/11 0000 Intake Total 860 600 240 Output Total 280 Balance 860 320 240 Intake, IV 560 600 Intake, Oral 300 240 Number 3 0 Bowel Movements Output, Urine 280 Physical Exam Other Physical Findings: She is more awake and alert and more responsive but not able to communicate effectively Lungs decreased breath sounds both bases Heart regular rhythm with no murmur Abdomen is soft, no obvious tenderness, positive bowel sounds Extremities no cyanosis, clubbing or edema Results Last 24 Hours of Lab Results: Laboratory Tests 07/11 0600 Chemistry Sodium (137 - 145 mmol/L) 148 H Potassium (3.5 - 5.1 mmol/L) 3.8 Chloride (98 - 107 mmol/L) 111 H Carbon Dioxide (22 - 30 mmol/L) 31 H Anion Gap (5 - 16) 6 BUN (7 - 17 mg/dL) 18 H Creatinine (0.5 - 1.0 mg/dL) 0.5 Estimated GFR (>60 ml/min) > 60 BUN/Creatinine Ratio (7 - 25 %) 36.0 H Hematology CBC w Diff MAN DIFF ORDERED WBC (4.8 - 10.8 /CUMM) 30.6 *H RBC (4.20 - 5.40 /CUMM) 2.40 L Hgb (12.0 - 16.0 G/DL) 7.5 L Hct (37 - 47 %) 22.2 L MCV (81.0 - 99.0 FL) 92.6 MCH (27.0 - 31.0 PG) 31.3 H RDW (11.5 - 14.5 %) 14.6 H Plt Count (130 - 400 /CUMM) 176 MPV (7.4 - 10.4 FL) 8.3 Gran % (42.2 - 75.2 %) 96.4 H Lymphocytes % (20.5 - 51.1 %) 1.1 L Monocytes % (1.7 - 9.3 %) 2.3 Eosinophils % (0 - 5 %) 0.2 Basophils % (0.0 - 2.0 %) 0 L Absolute Granulocytes (1.4 - 6.5 /CUMM) 29.5 H Segmented Neutrophils (42.2 - 75.2 %) 85 H Band Neutrophils (0.0 - 5.0 %) 7 H Absolute Lymphocytes (1.2 - 3.4 /CUMM) 0.3 L Lymphocytes (20.5 - 51.1 %) 3 L Monocytes (1.7 - 9.3 %) 5 Absolute Monocytes (0.10 - 0.60 /CUMM) 0.7 H Absolute Eosinophils (0.0 - 0.7 /CUMM) 0.1 Absolute Basophils (0.0 - 0.2 /CUMM) 0 Normocytic RBCs VERIFIED Normochromic RBCs VERIFIED PUBS MCHC (33.0 - 37.0 G/DL) 33.8 Last 24 Hours of Branden Results: Blood cultures 2 July 10 negative Urine culture July 11 pending Right pleural fluid culture July 10 negative Urine culture July 08 negative Recent Imaging Studies: Chest x-ray July 10 improvement in the right pleural effusion, with right midlung patchy opacity; small left effusion with mid to lower lung airspace opacity Assessment/Plan Impression: Recurrent fevers, though none in the past 24 hours, with increasing white blood cell count now on Vancomycin and Ceftazidime, begun yesterday after she re- spiked after 5 days of Unasyn, for the possibility of a pneumonia secondary to a resistant organism, with blood cultures remaining negative. The hemorrhagic right pleural effusion appears to be exudative, and underlying malignancy must be considered. Her overall prognosis appears poor and may affect decisions regarding further evaluation. Suggestion: 1. Follow-up pleural fluid culture and cytology 2. Consider Pulmonary input based on above 3. Follow-up recent cultures 4. Continue Vancomycin and Ceftazidime pending above
--- NOTE | 2016-07-11 17:11 | PN- Att Addend ---
Attending Addendum Attending Brief Note The patient is sleeping soundly and slept through her exam. Her EMR has been reviewed. She has remained afebrile over the last 24 hours. Her physical exam remains unchanged Cultures are negative. Joni Mario MD's input is appreciated and we will continue to monitor the patient's clinical status and laboratory values over the next 24 hours while continuing her present course of therapy.
[2016-07-11 22:22] VITALS: BP 116/60
[2016-07-12 07:25] VITALS: BP 144/70
[2016-07-12 08:15] LABS: ABSOLUTE BASOPHIL COUNT 0 /CUMM (0.0-0.2); ABSOLUTE EOSINOPHIL COUNT 0.3 /CUMM (0.0-0.7); ABSOLUTE GRANULOCYTE CT 22.4 /CUMM (1.4-6.5); ABSOLUTE LYMPH COUNT 0.5 /CUMM (1.2-3.4); ABSOLUTE MONOCYTE COUNT 0.2 /CUMM (0.10-0.60); BASOPHIL % 0 % (0.0-2.0); EOSINOPHIL % 1.3 % (0-5); GRANULOCYTE % 95.9 % (42.2-75.2); HEMATOCRIT 22.8 % (37-47); MEAN CORPUSCULAR HGB 30.3 PG (27.0-31.0); MEAN CORPUSCULAR HGB CONC 32.6 G/DL (33.0-37.0); MEAN CORPUSCULAR VOLUME 93.2 FL (81.0-99.0); MEAN PLATELET VOLUME 7.8 FL (7.4-10.4); PLATELET COUNT 213 /CUMM (130-400); RBC DISTRIBUTION WIDTH 14.4 % (11.5-14.5); RED BLOOD CELL CT 2.44 /CUMM (4.20-5.40); WHITE BLOOD CELL COUNT 23.3 /CUMM (4.8-10.8)
--- NOTE | 2016-07-12 08:39 | PN- Housestaff ---
Subjective Follow-up For: Aspiration PNA Persistent fever Subjective: Since seen and examined this morning. She was lying in bed, drowsy but arousable. She did not start any questions being asked. Review of Systems Constitutional: Reports: see HPI. Objective Last 24 Hrs of Vital Signs/I&O Vital Signs Date Time Temp Pulse Resp B/P Pulse O2 O2 Flow FiO2 Ox Delivery Rate 07/12 0725 97.7 93 20 144/70 92 Nasal Cannula 07/12 0000 95 Nasal 3.0L Cannula 07/11 2222 97.9 72 20 116/60 95 07/11 1600 Nasal 3.0L Cannula 07/11 1340 98.2 98 18 130/80 91 Nasal 2.0L Cannula Intake & Output 07/12 1600 07/12 0800 07/12 0000 Intake Total 920 1005 Output Total 250 300 Balance 670 705 Intake, IV 800 525 Intake, Oral 120 480 Output, Urine 250 300 Physical Exam General Appearance: drowsy Cardiovascular: Regular Rate, Normal S1, Normal S2 Lungs: decreased breath sounds bilaterally and basal region Abdomen: Normal Bowel Sounds, Soft, No Tenderness Extremities: No Clubbing, No Cyanosis, No Edema Current Medications: Current Medications Sig/Thalia Start time Last Medication Dose Route Stop Time Status Admin Acetaminophen 650 MG .STK-MED ONE 07/11 1603 DC PO 07/11 1604 Acetaminophen 650 MG Q6P PRN 07/09 1430 AC 07/10 [place] 1235 Acetaminophen 650 MG Q6P PRN 07/05 1600 AC 07/11 PO 1607 Albuterol Sulfate 3 ML Q4P PRN 07/11 1530 AC INH Albuterol Sulfate 3 ML BID 07/08 220 AC 07/11 INH 1112 Atenolol 25 MG 07/06 1000 AC 07/10 PO 1046 Calcium 600 MG BID 07/05 2200 AC 07/12 PO 0821 Ceftazidime 1,000 MG Q12H 07/10 1400 AC 07/12 IV 0113 Dextrose/Water 1,000 ML Q13H 07/10 1745 AC 07/12 IV 0307 Duloxetine HCl 30 MG Q12 07/05 2200 AC 07/12 PO 0821 Enoxaparin Sodium 40 MG DAILY 07/05 1717 AC 07/12 SC 0822 Ferrous Sulfate 325 MG DAILY 07/06 1000 AC 07/12 PO 0821 Lamotrigine 150 MG Q12 07/05 2200 AC 07/12 PO 0821 Levetiracetam 500 MG 7:30 AM, & 4:30 PM 07/07 0730 AC 07/12 PO 0820 Multivitamins 1 TAB DAILY 07/06 1000 AC 07/12 Therapeutic PO 0821 Vancomycin HCl 1,000 MG Q24H 07/10 1400 AC 07/11 Sodium Chloride 250 ML IV 1423 Last 24 Hrs of Lab/Branden Results Last 24 Hrs of Labs/Mics: Laboratory Tests 07/12/16 0610: Anion Gap 9, Estimated GFR > 60, BUN/Creatinine Ratio 37.5 H, CBC w Diff MAN DIFF ORDERED, RBC 2.44 L, MCV 93.2, MCH 30.3, RDW 14.4, MPV 7.8, Gran % 95.9 H , Lymphocytes % 2.0 L, Monocytes % 0.8 L, Eosinophils % 1.3, Basophils % 0 L, Absolute Granulocytes 22.4 H, Absolute Lymphocytes 0.5 L, Absolute Monocytes 0.2, Absolute Eosinophils 0.3, Absolute Basophils 0, Platelet Estimate VERIFIED BY SMEAR, Polychromasia 1+, PUBS MCHC 32.6 L Assessment/Plan Assessment: 89-year-old female with a past medical history of depression, hypertension, history of seizures, iron deficiency anemia who presents after a choking spell, admitted for aspiraton pneumonia. Patient continues to spike fever despite being on Unasyn. Problem list: 1. Aspiration pneumonia secondary to choking spell on the food 2. History of hypertension 3. History of depression 4. History of epilepsy/seizures 5. Persistent fever Plans: * Discontinued IV Unasyn * Started IV vancomycin 1g IV daily and Fortaz 1g IV BID per ID rec * WBC 30.6-23.3 today * Follow blood cultures and urine culture * Successful diagnostic and therapeutic ultrasound-guided right thoracentesis yielding 600 mL of sanguinous colored fluid. * Pleural fluid analysis to follow * Consider LP given persistnet fevers * Cont to appreciate ID recs * Continue with all her home medications * DVT prophylaxis at all times with subcutaneous Lovenox * Passed MBS - puree and thin * Mild pain pathway - no narcotics given AMS and per POA's request * Code: DNR/DNI Problem List: 1. Multiple rib fractures 2. Aspiration pneumonia Pain Ratin Pain Location: None Pain Goal: Remain pain free Pain Plan: Might pain pathway Tomorrow's Labs & Rationales: CBC for WBC monitoring BEP for lites monitoring
--- NOTE | 2016-07-12 10:55 | PN- Infect Dx ---
Subjective Subjective: Afebrile. She is unable to provide any reliable history. Objective Last 24 Hrs of Vital Signs/I&O Vital Signs Date Time Temp Pulse Resp B/P Pulse O2 O2 Flow FiO2 Ox Delivery Rate 07/12 0725 97.7 93 20 144/70 92 Nasal Cannula 07/12 0000 95 Nasal 3.0L Cannula 07/11 2222 97.9 72 20 116/60 95 07/11 1600 Nasal 3.0L Cannula 07/11 1340 98.2 98 18 130/80 91 Nasal 2.0L Cannula 07/11 1114 93 Nasal 3.0L Cannula Intake & Output 07/12 1600 07/12 0800 07/12 0000 Intake Total 920 1005 Output Total 250 300 Balance 670 705 Intake, IV 800 525 Intake, Oral 120 480 Output, Urine 250 300 Physical Exam Other Physical Findings: She appears more alert and responsive and more comfortable Lungs bibasilar crackles Heart regular rhythm with no murmur Abdomen is soft, with no obvious tenderness, positive bowel sounds Extremities no cyanosis, clubbing or edema Results Last 24 Hours of Lab Results: Laboratory Tests 07/12 0610 Chemistry Sodium (137 - 145 mmol/L) 141 Potassium (3.5 - 5.1 mmol/L) 3.6 Chloride (98 - 107 mmol/L) 103 Carbon Dioxide (22 - 30 mmol/L) 29 Anion Gap (5 - 16) 9 BUN (7 - 17 mg/dL) 15 Creatinine (0.5 - 1.0 mg/dL) 0.4 L Estimated GFR (>60 ml/min) > 60 BUN/Creatinine Ratio (7 - 25 %) 37.5 H Hematology CBC w Diff MAN DIFF ORDERED WBC (4.8 - 10.8 /CUMM) 23.3 H RBC (4.20 - 5.40 /CUMM) 2.44 L Hgb (12.0 - 16.0 G/DL) 7.4 *L Hct (37 - 47 %) 22.8 L MCV (81.0 - 99.0 FL) 93.2 MCH (27.0 - 31.0 PG) 30.3 RDW (11.5 - 14.5 %) 14.4 Plt Count (130 - 400 /CUMM) 213 MPV (7.4 - 10.4 FL) 7.8 Gran % (42.2 - 75.2 %) 95.9 H Lymphocytes % (20.5 - 51.1 %) 2.0 L Monocytes % (1.7 - 9.3 %) 0.8 L Eosinophils % (0 - 5 %) 1.3 Basophils % (0.0 - 2.0 %) 0 L Absolute Granulocytes (1.4 - 6.5 /CUMM) 22.4 H Absolute Lymphocytes (1.2 - 3.4 /CUMM) 0.5 L Absolute Monocytes (0.10 - 0.60 /CUMM) 0.2 Absolute Eosinophils (0.0 - 0.7 /CUMM) 0.3 Absolute Basophils (0.0 - 0.2 /CUMM) 0 Platelet Estimate (ADEQUATE) VERIFIED BY SMEAR Polychromasia 1+ PUBS MCHC (33.0 - 37.0 G/DL) 32.6 L Last 24 Hours of Branden Results: Blood cultures 2 July 10 negative Urine culture July 11 negative Right pleural fluid culture July 10 negative Assessment/Plan Impression: Appears improved with no further fevers and with white blood cell count decreasing on Vancomycin and Ceftazidime, begun empirically 2 days ago because of a recurrent fever after 5 days of Unasyn for the possibility of a resistant pneumonia, with no sputum obtained and with blood cultures remaining negative. The hemorrhagic right pleural effusion appears to be exudative, and an underlying malignancy must be considered, but there is no evidence for empyema. Suggestion: 1. Follow-up pleural fluid culture and cytology 2. Consider Pulmonary input based on above 3. Follow-up final cultures 4. Continue Vancomycin and Ceftazidime pending above
[2016-07-12 14:44] VITALS: BP 120/60
--- NOTE | 2016-07-12 17:45 | PN- Att Addend ---
Attending Addendum Attending Brief Note The patient is unable to give history. She is awake and appears to be in no acute distress. Has remained afebrile for the last 24 hours. Her exam is unchanged. Her leukocytosis appears to be resolving. We should continue to treat the patient was a combination of vancomycin/ ceftazidime for presumed resistant pneumonia post aspiration. We are continuing her maintenance medications.
[2016-07-12 22:43] VITALS: BP 124/60
--- NOTE | 2016-07-12 23:10 | NUR ---
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 PT IN NO APPARENT DISTRESS, RESTING COMFORTABLY. NO NEW ORDERS, REPORT PASSED ON TO NEXT SHIFT RN. WILL CONTINUE TO MONITOR.
[2016-07-13 06:37] VITALS: BP 136/72
[2016-07-13 07:47] LABS: ABSOLUTE BASOPHIL COUNT 0 /CUMM (0.0-0.2); ABSOLUTE EOSINOPHIL COUNT 0.5 /CUMM (0.0-0.7); ABSOLUTE GRANULOCYTE CT 16.7 /CUMM (1.4-6.5); ABSOLUTE LYMPH COUNT 0.6 /CUMM (1.2-3.4); ABSOLUTE MONOCYTE COUNT 0.7 /CUMM (0.10-0.60); BASOPHIL % 0.1 % (0.0-2.0); EOSINOPHIL % 2.5 % (0-5); GRANULOCYTE % 90.7 % (42.2-75.2); HEMATOCRIT 21.3 % (37-47); MEAN CORPUSCULAR HGB 30.4 PG (27.0-31.0); MEAN CORPUSCULAR HGB CONC 33.4 G/DL (33.0-37.0); MEAN PLATELET VOLUME 7.6 FL (7.4-10.4); PLATELET COUNT 229 /CUMM (130-400); RBC DISTRIBUTION WIDTH 14.2 % (11.5-14.5); RED BLOOD CELL CT 2.34 /CUMM (4.20-5.40); WHITE BLOOD CELL COUNT 18.4 /CUMM (4.8-10.8)
--- NOTE | 2016-07-13 08:20 | PN- Housestaff ---
Subjective Follow-up For: aspiration pneumonia Subjective: pt seen this morning, kept repeating "feeling much, much better today". she appeared to be lying comfortably on the bed, in no distress. further drop in hg noted, possibly due to blood draws, bruises noted on both arms. wbc is currently trending down to 18.4 on vanco and ceftaz. Review of Systems Constitutional: Denies: chills, fever. EENTM: Denies: visual changes. Cardiovascular: Denies: chest pain, orthopena. Respiratory: Denies: cough, short of breath. Gastrointestinal: Denies: abdominal pain, bloating, constipation, diarrhea. Genitourinary: Denies: dysuria. Objective Last 24 Hrs of Vital Signs/I&O Vital Signs Date Time Temp Pulse Resp B/P Pulse O2 O2 Flow FiO2 Ox Delivery Rate 07/13 1006 92 136/72 07/13 0800 Nasal 3.0L Cannula 07/13 0637 98.2 92 20 136/72 96 Nasal Cannula 07/13 0000 90 Nasal 3.0L Cannula 07/12 2243 99.6 104 22 124/60 90 07/12 2133 91 Nasal 3.0L Cannula 07/12 1600 90 Nasal 3.0L Cannula 07/12 1444 98.7 102 22 120/60 90 Intake & Output 07/13 1600 07/13 0800 07/13 0000 Intake Total 600 Output Total 200 250 Balance -200 350 Intake, Oral 600 Output, Urine 200 250 Physical Exam General Appearance: Alert, Cooperative, No Acute Distress Skin: bruises on both arms HEENT: Atraumatic, PERRLA Neck: Supple Cardiovascular: Regular Rate, Normal S1, Normal S2 Lungs: Clear to Auscultation, Normal Air Movement Abdomen: Normal Bowel Sounds, Soft, No Tenderness Neurological: Normal Speech Extremities: No Edema Current Medications: Current Medications Sig/Thalia Start time Last Medication Dose Route Stop Time Status Admin Acetaminophen 650 MG Q6P PRN 07/09 1430 AC 07/10 [place] 1235 Acetaminophen 650 MG Q6P PRN 07/05 1600 AC 07/11 PO 1607 Albuterol Sulfate 3 ML Q4P PRN 07/11 1530 AC INH Albuterol Sulfate 3 ML BID 07/08 2200 AC 07/11 INH 1112 Atenolol 25 MG 07/06 1000 AC 07/13 PO 1006 Calcium 600 MG BID 07/05 2200 AC 07/13 PO 1007 Ceftazidime 1,000 MG Q12H 07/10 1400 AC 07/13 IV 0304 Dextrose/Water 1,000 ML Q13H 07/10 1745 DC 07/12 IV 1409 Duloxetine HCl 30 MG Q12 07/05 2200 AC 07/13 PO 1007 Enoxaparin Sodium 40 MG DAILY 07/05 1717 AC 07/13 SC 1007 Ferrous Sulfate 325 MG DAILY 07/06 1000 AC 07/13 PO 1007 Lamotrigine 150 MG Q12 07/05 2200 AC 07/13 PO 1007 Levetiracetam 500 MG 7:30 AM, & 4:30 PM 07/07 0730 AC 07/13 PO 0646 Multivitamins 1 TAB DAILY 07/06 1000 AC 07/13 Therapeutic PO 1006 Vancomycin HCl 1,000 MG Q24H 07/10 1400 AC 07/12 Sodium Chloride 250 ML IV 1410 Last 24 Hrs of Lab/Branden Results Last 24 Hrs of Labs/Mics: Laboratory Tests 07/13/16 0615: Anion Gap 6, Estimated GFR > 60, BUN/Creatinine Ratio 24.0, CBC w Diff NO MAN DIFF REQ, RBC 2.34 L, MCV 91.0, MCH 30.4, RDW 14.2, MPV 7.6, Gran % 90.7 H, Lymphocytes % 3.1 L, Monocytes % 3.6, Eosinophils % 2.5, Basophils % 0.1, Absolute Granulocytes 16.7 H, Absolute Lymphocytes 0.6 L, Absolute Monocytes 0.7 H, Absolute Eosinophils 0.5, Absolute Basophils 0, PUBS MCHC 33.4 Assessment/Plan Assessment: 89-year-old female with a past medical history of depression, hypertension, history of seizures, iron deficiency anemia who presents after a choking spell, admitted for aspiraton pneumonia. Patient continues to spike fever despite being on Unasyn. Problem list: 1. Aspiration pneumonia secondary to choking spell on the food 2. History of hypertension 3. History of depression 4. History of epilepsy/seizures 5. Persistent fever Plans: * Discontinued IV Unasyn * Continue IV vancomycin 1g IV daily and Fortaz 1g IV BID per ID rec * WBC 30.6-23.3 - 18.4 * Hg 7.1 * Follow blood cultures and urine culture * Successful diagnostic and therapeutic ultrasound-guided right thoracentesis yielding 600 mL of sanguinous colored fluid. * Pleural fluid analysis to follow * Consider LP given persistnet fevers * Cont to appreciate ID recs * Continue with all her home medications * DVT prophylaxis at all times with subcutaneous Lovenox * Passed MBS - puree and thin * Mild pain pathway - no narcotics given AMS and per POA's request * Code: DNR/DNI Problem List: 1. Aspiration pneumonia Pain Ratin Pain Location: none Pain Goal: Remain pain free Pain Plan: mild pp Tomorrow's Labs & Rationales: cbc for abla DVT/Prophylaxis: mechanical, pharmacological
[2016-07-13 15:24] VITALS: BP 120/60
--- NOTE | 2016-07-13 16:05 | PN- Att Addend ---
Attending Addendum Attending Brief Note Patient looks a little better, she is a febrile little brighter signs are stable not a major changes on physical. Her white count is coming down slowly still on the high side all the cultures apparently seen negative at this point. After the adjustment of antibiotics patient has been off febrile. We'll continue present treatment and follow-up the CBC closely continue following the cultures see if there is any changes. Current Medications Sig/Thalia Start time Last Medication Dose Route Stop Time Status Admin Acetaminophen 650 MG Q6P PRN 07/09 1430 AC 07/10 [place] 1235 Acetaminophen 650 MG Q6P PRN 07/05 1600 AC 07/11 PO 1607 Albuterol Sulfate 3 ML Q4P PRN 07/11 1530 AC INH Albuterol Sulfate 3 ML BID 07/08 2200 AC 07/11 INH 1112 Atenolol 25 MG 07/06 1000 AC 07/13 PO 1006 Calcium 600 MG BID 07/05 2200 AC 07/13 PO 1007 Ceftazidime 1,000 MG Q12H 07/10 1400 AC 07/13 IV 1337 Duloxetine HCl 30 MG Q12 07/05 2200 AC 07/13 PO 1007 Enoxaparin Sodium 40 MG DAILY 07/05 1717 AC 07/13 SC 1007 Ferrous Sulfate 325 MG DAILY 07/06 1000 AC 07/13 PO 1007 Lamotrigine 150 MG Q12 07/05 2200 AC 07/13 PO 1007 Levetiracetam 500 MG 7:30 AM, & 4:30 PM 07/07 0730 AC 07/13 PO 1550 Multivitamins 1 TAB DAILY 07/06 1000 AC 07/13 Therapeutic PO 1006 Vancomycin HCl 1,000 MG Q24H 07/10 1400 AC 07/13 Sodium Chloride 250 ML IV 1337 Laboratory Tests 07/13/16 0615: Anion Gap 6, Estimated GFR > 60, BUN/Creatinine Ratio 24.0, CBC w Diff NO MAN DIFF REQ, RBC 2.34 L, MCV 91.0, MCH 30.4, RDW 14.2, MPV 7.6, Gran % 90.7 H, Lymphocytes % 3.1 L, Monocytes % 3.6, Eosinophils % 2.5, Basophils % 0.1, Absolute Granulocytes 16.7 H, Absolute Lymphocytes 0.6 L, Absolute Monocytes 0.7 H, Absolute Eosinophils 0.5, Absolute Basophils 0, PUBS MCHC 33.4 01 0610: Anion Gap 9, Estimated GFR > 60, BUN/Creatinine Ratio 37.5 H, CBC w Diff MAN DIFF ORDERED, RBC 2.44 L, MCV 93.2, MCH 30.3, RDW 14.4, MPV 7.8, Gran % 95.9 H , Lymphocytes % 2.0 L, Monocytes % 0.8 L, Eosinophils % 1.3, Basophils % 0 L, Absolute Granulocytes 22.4 H, Absolute Lymphocytes 0.5 L, Absolute Monocytes 0.2, Absolute Eosinophils 0.3, Absolute Basophils 0, Platelet Estimate VERIFIED BY SMEAR, Polychromasia 1+, PUBS MCHC 32.6 L Microbiology 07/11 0636 URINE ROUT: Urine Culture - COMP Vital Signs Date Time Temp Pulse Resp B/P Pulse O2 O2 Flow FiO2 Ox Delivery Rate 07/13 1524 97.7 93 22 120/60 95 07/13 1006 92 136/72 Intake & Output 07/13 1600 Intake Total 798 Output Total 100 Balance 698 Intake, Oral 798 Number 0 Bowel Movements Output, Urine 100
[2016-07-13 22:12] VITALS: BP 126/60
--- NOTE | 2016-07-14 06:06 | PN- Housestaff ---
Subjective Follow-up For: Aspiration pneumonia Subjective: Patient is seen and examined at bedside. Remains afebrile and HDS. Resting comfortably in bed. No acute events reported overnight. Awake and alert but lethargic, confused and disoriented. Review of Systems Constitutional: Reports: see HPI. Objective Last 24 Hrs of Vital Signs/I&O Vital Signs Date Time Temp Pulse Resp B/P Pulse O2 O2 Flow FiO2 Ox Delivery Rate 07/14 0719 98.3 98 24 120/60 91 Nasal 3.0L Cannula 07/14 0000 94 Nasal 3.5L Cannula 07/13 2212 98.9 98 20 126/60 93 07/13 1916 89 Nasal 3.0L Cannula 07/13 1524 97.7 93 22 120/60 95 Intake & Output 07/14 1600 07/14 0800 07/14 0000 Intake Total 30 250 Output Total 275 300 Balance -245 -50 Intake, IV 30 10 Intake, Oral 240 Number 3 Bowel Movements Output, Urine 275 300 Physical Exam General Appearance: Alert, Oriented X3, Cooperative, No Acute Distress Other Physical Findings: Skin No Rashes, No Breakdown HEENT Atraumatic, PERRLA Neck Supple, No JVD Lymphatic Axillary nl, Cervical nl Cardiovascular Regular Rate, Normal S1, Normal S2 Lungs decreased breath sounds bilaterally, CTA Abdomen Normal Bowel Sounds, Soft, No Tenderness Neurological Normal Gait, Normal Speech, Strength at 5/5 X4 Ext, Normal Tone Extremities No Clubbing, No Cyanosis, No Edema Vascular Normal Pulses, Pulses Symmetrical Current Medications: Current Medications Sig/Thalia Start time Last Medication Dose Route Stop Time Status Admin Acetaminophen 650 MG Q6P PRN 07/09 1430 AC 07/10 [place] 1235 Acetaminophen 650 MG Q6P PRN 07/05 1600 AC 07/11 PO 1607 Albuterol Sulfate 3 ML Q4P PRN 07/11 1530 AC INH Albuterol Sulfate 3 ML BID 07/08 2200 AC 07/11 INH 1112 Atenolol 25 MG 07/06 1000 AC 07/13 PO 1006 Calcium 600 MG BID 07/05 2200 AC 07/14 PO 0854 Ceftazidime 1,000 MG Q12H 07/10 1400 AC 07/14 IV 0118 Duloxetine HCl 30 MG Q12 07/05 2200 AC 07/14 PO 0854 Enoxaparin Sodium 40 MG DAILY 07/05 1717 AC 07/14 SC 0854 Ferrous Sulfate 325 MG DAILY 07/06 1000 AC 07/14 PO 0854 Lamotrigine 150 MG Q12 07/05 2200 AC 07/14 PO 0854 Levetiracetam 500 MG 7:30 AM, & 4:30 PM 07/07 0730 AC 07/14 PO 0855 Multivitamins 1 TAB DAILY 07/06 1000 AC 07/14 Therapeutic PO 0854 Vancomycin HCl 1,000 MG Q24H 07/10 1400 AC 07/13 Sodium Chloride 250 ML IV 1337 Assessment/Plan Assessment: 89-year-old female with a past medical history of hypertension, seizures, iron deficiency anemia and depression who presented after a choking spell, admitted for aspiraton pneumonia. Patient has been treated with Unasyn intially. However patient continued to spike fevers with a white count trending up. Antibiotics were broadened to IV vancomycin and Fortaz subsequently. Since then patient has been improving with no recurrent fevers. Also showing moderate improvement in mental status. Problem list: # Aspiration pneumonia secondary to choking spell on the food # Anemia # History of hypertension # History of depression # History of epilepsy/seizures # Persistent fever Plans: * Continue IV vancomycin 1g IV daily and Fortaz 1g IV BID per ID rec * Trend H/H - Hg 6.5 today (drop from 7.1) * Transfuse 2U pRBC, recheck CBC afterwards * Successful diagnostic and therapeutic ultrasound-guided right thoracentesis yielding 600 mL of sanguinous colored fluid. * Pleural fluid analysis to follow * Cont to appreciate ID recs * Continue with all her home medications * DVT prophylaxis at all times with subcutaneous Lovenox * Passed MBS - puree and thin * Mild pain pathway - no narcotics given AMS and per POA's request * Code: DNR/DNI Problem List: 1. Aspiration pneumonia Pain Ratin Pain Location: 0 Pain Goal: Remain pain free Pain Plan: Mild pathway Tomorrow's Labs & Rationales: CBC - monitor for anemia and leukocytosis
[2016-07-14 07:19] VITALS: BP 120/60
--- NOTE | 2016-07-14 08:20 | Discharge Summary ---
See Addendum Visit Information Visit Dates Admission Date: 07/05/16 Discharge Date: 07/17/16 Hospital Course Course Attending Physician: WICHO CYR MD Primary Care Physician: WICHO CYR MD Other Care Providers: Infectious disease and pulmonology Consulting Request: Consulting Specialty: Pulmonary Disease Hospital Course: Patient is 89-year-old woman, resident of an assisted living [facility]), with past medical history significant for dementia, hypertension, depression, history of seizures, and deficiency anemia and was bringing in from assisted living after an episode of choking and while having her lunch and required heimlich maneuver. Admission patient was drowsy and sleepy and found to be hypoxic. A food bolus was removed from the back of her throat in the ER. Lab work was significant for WBC count of 39,000, BUN/ creatinine 24 and 0.5 with normal liver enzymes. Chest x-ray was negative for any infiltrate or active pathology. Patient was admitted to the medical floor and following issues were addressed Problem #1 aspiration pneumonia secondary to choking Initially patient was started on Unasyn for presumed aspiration pneumonia. Patient developed fever next day of her admission to 101.3F and again on July [address] chest done on July 08 showed 1. Mucus plugging within lower lobe bronchi with partial collapse/consolidation of the right lower lobe and complete collapse of left lower lobe. These findings are suspicious for recent aspiration. Also, there are patchy airspace opacities in the posterior aspect of the right upper lobe, left upper lobe and lingula, likely representing aspiration pneumonia. [id number] bilateral pleural effusions. 2. Multiple old, bilateral rib fractures as well as multiple recent, displaced rib fractures. 3. Cholelithiasis without overt cholecystitis. Common bile duct is dilated up to 1 cm diameter. The intrahepatic bile ducts are mildly dilated, as well. 4. Prominent stool within the rectum and colon suggestive of constipation. No acute findings along the gastrointestinal tract. Infectious disease was consulted and we continued patient on Unasyn but patient continued spiking fevers so Unasyn was changed to Ceftaz and vancomycin with resolution of fevers and gradual redution in white count. Thoracentesis done on July 10 and showed hemorrhagic right pleural effusion with WBC count of 1980 , RBC count of [id number], fluid LDH of 994, albumin of 1.1, total protein of less than 2, glucose of 124 with pH 7.396 suggestive of exudative pleural effusion. Patient has remained afebrile from July 11 on wards after changing antibiotics. Pulmonology evaluation believe the bloody hemorrhagic pleural effusion is most likely related to either a parapneumonic effusion which appears to be sympathetic effusion with no evidence suggestive empyema or significant trauma while she was having the Heimlich maneuver with multiple rib fractures on both sides. Pleural fluid analysis is most likely suggestive of a transudate as a protein was less than 2. LDH is probably high related to hemothorax. Unlikely that this is malignancy. Cytology is negative for any malignancy Problem #2 history of hypertension Patient was continued on her home dose of atenolol and we will discharge patient on same Problem #3 history of depression Patient was continued on her home medications Problem #4 history of epilepsy/seizures Her home dose of Keppra was continued during her hospital stay and we will discharge patient on same Problem #5 anemia acute and chronic most likely anemia of chronic disease/ hemorrhagic pleural effusion/multiple rib fractures Patient dropped her H&H from 10.6 on admission on July 05 to 6.5 on July 14 and was transfused with 2 units of blood with stabilization of her H&H and 9.4 and 28 at the time of discharge. Lovenox was discontinued and patient was kept on Alps. Patient is on heart healthy diet of pure consistency and regular thins after having a formal barium swallow evaluation Complications: none Allergies: Coded Allergies: Opioids - Morphine Analogues (N/V, MADE JAMI 10/28/15) Significant Procedures: SERVICE DATE: 07/10/16 EXAM TYPE: US - US-THORACENTESIS CLINICAL HISTORY: This patient is a 89-year-old female with bilateral pleural effusions, right greater than left. The patient is referred to interventional radiology for ultrasound-guided thoracentesis. PROCEDURE: Ultrasound-guided thoracentesis. COMPARISON: None. ACCESS: 5 Hungarian Yueh needle/catheter PROCEDURALIST: Keron Maynard D.O.. MEDICATIONS: 10 mL of 1% lidocaine SQ. COMPLICATIONS: None. ESTIMATED BLOOD LOSS: <5 mL. SPECIMENS: 600 mL of sanguinous colored fluid. PROCEDURE NOTE: Appropriate pre-procedure medical history and imaging studies were reviewed. Informed consent was obtained from the patient's power of tongue binder prior to the procedure. During this process, the procedure and potential alternatives were explained along with the intended outcome and benefits. The risks of the procedure, including the possibility of an unsuccessful procedure, as well as the risk of not doing the procedure, were discussed. The patient's power of tongue binder was given the opportunity to ask questions regarding the procedure and appeared competent to make decisions. A signed consent form documenting this discussion was placed in the medical record. A time-out procedure was performed. The patient was brought to the ultrasound department and placed in the left decubitus position. Ultrasound images of the right thorax were obtained to localize a moderate pleural effusion. Images were permanently saved to the record. An area of the patient's right back was prepped and draped in the standard sterile fashion. 10 mL of 1% lidocaine was used to obtain local anesthesia of the skin and deeper tissues. A standard small-bore needle was introduced to sample fluid and demonstrated a safe access route. There was no evidence of traversing adjacent organs or vascular structures. A 5 Hungarian Yueh needle/catheter was utilized for access. 600 mL of segment is-colored fluid was aspirated before drainage ceased. The catheter was removed and a sterile dressing applied. The patient tolerated the procedure well without evidence of immediate complications. FINDINGS: Moderate simple right pleural effusion. IMPRESSION: Successful diagnostic and therapeutic ultrasound-guided right thoracentesis yielding 600 mL of sanguinous colored fluid. PLAN: 1. A postprocedure chest x-ray was ordered and will be dictated separately. 2. The patient was stable after the procedure and will be transferred back to her medical room with instructions after standard monitoring. DICTATED BY: KERON MAYNARD DO Pertinent Lab Results: SERVICE DATE: 07/08/16- EXAM TYPE: CAT - CT ABD & PELVIS W IV CONTRAST; CT CHEST W IV CONTRAST EXAMINATION: CT CHEST WITH IV CONTRAST CT ABDOMEN AND PELVIS WITH IV CONTRAST CLINICAL INFORMATION: 89-year-old female with fever. Evaluate for pulmonary infiltrate and intra-abdominal pathology. COMPARISON: CXR from 07/05/2016. Pelvis radiograph, 07/31/2015. MRI left hip, 08/01/2015. TECHNIQUE: Multidetector CT imaging examination of the chest, abdomen and pelvis was performed with intravenous administration of 95 mL of Optiray 320. Axial images are displayed at 0.625 mm and 5 mm slice thickness. Coronal and sagittal reformatted images were generated at the technologist's workstation and submitted for review. DLP: 377 mGy-cm FINDINGS: CHEST - LUNGS and PLEURA: Mucus plugging of bilateral lower lobe bronchi with partial collapse/consolidation of the right lower lobe and complete collapse of the left lower lobe. Patchy airspace opacities within the posterior aspect of the right upper lobe, lateral segment of the middle lobe and left upper lobe/lingula. These findings are suspicious for recent aspiration event and development of aspiration pneumonia. [id number] bilateral pleural effusions. MEDIASTINUM: Moderate atherosclerotic calcification of coronary arteries and thoracic aorta. The ascending thoracic aorta measures up to 3.8 cm transverse diameter. No pericardial effusion. The esophagus is grossly unremarkable. The left thyroid lobe is larger than left. There are no discrete nodules within the mildly enlarged thyroid gland. LYMPHATICS: No pathologic sized axillary, hilar or mediastinal lymph nodes. CHEST WALL/BONES: There are several old and/or subacute rib fractures. Also, there are acute, bilateral rib fractures. For example, there are displaced fractures of the right lateral 3rd - 7th ribs and left anterolateral 6th and 7th ribs. Multiple thoracic vertebra exhibit mild height loss.. Also, there is a T7 compression fracture with approximately 50% anterior height loss, probably chronic. No acute fractures are seen. There is vertebroplasty cement within the compressed T12 vertebra. ABDOMEN AND PELVIS - HEPATOBILIARY: 1.4 cm cyst within the lateral segment of the left lobe of the liver. No suspicious hepatic lesion. There is a 2.5 cm rim calcified stone in the gallbladder neck. No overt gallbladder wall edema or pericholecystic inflammatory change. Common bile duct is dilated up to 1 cm and there is mild dilatation of the central intrahepatic ducts. PANCREAS: Pancreas is atrophied. No peripancreatic edema. SPLEEN: Unremarkable. ADRENAL GLANDS: Unremarkable. KIDNEYS, URETERS, BLADDER: Kidneys enhance symmetrically and there is no nephrolithiasis or hydronephrosis or perinephric edema. 0.8 cm cortical cyst at the upper pole of the right kidney. A cyst at the left lower pole measures up to 5.6 cm maximum dimension. This cyst has a thin septation also has a small, thin focus of calcification along its superior wall. There is no enhancing mural nodule. This is compatible with a benign, Bosniak category 2 cyst. The ureters and urinary bladder are unremarkable. GASTROINTESTINAL TRACT: Stomach is underdistended. Bowel loops are normal in size. The rectum, which measures 7.6 cm transverse, is distended with fecal material. There is an intact rectal anastomosis. Prominent stool is seen within the nondilated colon. No ascites or pneumoperitoneum. ABDOMINAL WALL: No acute findings. VASCULAR: There is atherosclerotic calcification of the abdominal aorta and branch vessels without aortic aneurysm. LYMPH NODES: No pathologic sized lymph nodes within the abdomen or pelvis. PELVIC VISCERA: The uterus and adnexa are unremarkable. No pelvic free fluid. OSSEOUS STRUCTURES: Within the lumbar spine, the vertebral endplates are concave, likely on the basis of chronic osteoporosis. There is chondrocalcinosis of intervertebral discs. The visualized internal fixation hardware of the proximal right femur is intact. There is been remote hardware removal from the left hip. There is an old hardware tract in the visualized proximal femur and apparent chronic synovial thickening and chronic erosions at the deformed left femoroacetabular joint, similar in appearance compared to the pelvis CT of 07/26/2015. No new fluid collections at the left hip compared to the prior pelvis CT or MRI from 08/01/2015. IMPRESSION: 1. Mucus plugging within lower lobe bronchi with partial collapse/consolidation of the right lower lobe and complete collapse of left lower lobe. These findings are suspicious for recent aspiration. Also, there are patchy airspace opacities in the posterior aspect of the right upper lobe, left upper lobe and lingula, likely representing aspiration pneumonia. Ukaqa-bu-[id number] bilateral pleural effusions. 2. Multiple old, bilateral rib fractures as well as multiple recent, displaced rib fractures. 3. Cholelithiasis without overt cholecystitis. Common bile duct is dilated up to 1 cm diameter. The intrahepatic bile ducts are mildly dilated, as well. 4. Prominent stool within the rectum and colon suggestive of constipation. No acute findings along the gastrointestinal tract. Disposition Summary Disposition Principal Diagnosis: Aspiration pneumonia, hemorrhagic pleural effusion Additional Diagnosis: Multiple rib fractures secondary to Heimlich maneuver History of seizure Anemia Discharge Disposition: SNF Discharge Instructions General Discharge Information Code Status: Do Not Resucitate/Intubat Patient's Diet: Heart healthy diet with pured thickened and thin liquids Patient's Activity: As tolerated with assistance Follow-Up Instructions/Appts: Please follow up with Dr. Fairchild (director phone) and Dr. Cyr (primary care ) within a week of discharge. Medications at Discharge Discharge Medications: Continue taking these medications: Atenolol (Atenolol) 25 MG TAB 1 Tablet ORAL WEDNESDAY, WEDNESDAY AND WEDNESDAY Qty = 39 Comments: NOT GIVEN IN HOSPITAL Multivitamin (One Daily Multivitamin) 1 TAB TAB 1 Tablet ORAL DAILY Comments: NOT GIVEN IN HOSPITAL Dextran 70/Hypromellose (Artificial Tears) 1 EACH DROPERETTE 1 DROP OPHTHALMIC Q4H as needed for DRY EYES - BOTH EYES Comments: PER MED LIST BENCHMARK Acetaminophen (Tylenol Extra Strength) 500 MG TABLET 2 Tablet ORAL THREE TIMES DAILY Comments: NOT GIVEN IN HOSPITAL Lamotrigine (Lamotrigine) 150 MG TABLET 1 Tablet ORAL EVERY 12 HOURS Comments: Last Taken: 10/28/15 Time: 9:30 AM Duloxetine HCl (Duloxetine HCl) 30 MG CAPSULE.DR 1 Capsule ORAL EVERY 12 HOURS Qty = 56 Comments: NOT GIVEN IN HOSPITAL Ferrous Sulfate (Ferrous Sulfate) 325 MG TABLET 1 Tablet ORAL DAILY Comments: NOT GIVEN IN HOSPITAL Calcium Carbonate/Vitamin D3 (Os-Carrillo 500+D3 Caplet) 1 EACH TABLET 1 Tablet ORAL DAILY Comments: NOT GIVEN IN HOSPITAL Levetiracetam (Keppra) 500 MG TABLET 1 Tablet ORAL TWICE DAILY Days = 30 Instructions: PER PATIENT'S POA Copies To: CLAUDIA IRVING,WICHO
[2016-07-14 12:19] LABS: ABSOLUTE BASOPHIL COUNT 0 /CUMM (0.0-0.2); ABSOLUTE EOSINOPHIL COUNT 0.5 /CUMM (0.0-0.7); ABSOLUTE GRANULOCYTE CT 16.8 /CUMM (1.4-6.5); ABSOLUTE LYMPH COUNT 0.6 /CUMM (1.2-3.4); ABSOLUTE MONOCYTE COUNT 0.9 /CUMM (0.10-0.60); BASOPHIL % 0 % (0.0-2.0); EOSINOPHIL % 2.5 % (0-5); GRANULOCYTE % 89.1 % (42.2-75.2); MEAN CORPUSCULAR HGB 30.6 PG (27.0-31.0); MEAN CORPUSCULAR HGB CONC 33.6 G/DL (33.0-37.0); MEAN CORPUSCULAR VOLUME 91.1 FL (81.0-99.0); MEAN PLATELET VOLUME 7.2 FL (7.4-10.4); PLATELET COUNT 271 /CUMM (130-400); RBC DISTRIBUTION WIDTH 14.1 % (11.5-14.5); RED BLOOD CELL CT 2.12 /CUMM (4.20-5.40); WHITE BLOOD CELL COUNT 18.9 /CUMM (4.8-10.8)
[2016-07-14 12:34] LABS: HEMATOCRIT 19.3 % (37-47)
--- NOTE | 2016-07-14 13:40 | Cons- Pulmonary ---
General Information and HPI Consulting Request Date of Consult: 07/14/16 Requested By: med team History of Present Illness: This 89-year-old female with a past medical history of depression, hypertension, history of seizures, iron deficiency anemia who presented to the [facility] from [facility] facility after she found to have aspirated on her lunch. The patient was was enjoying her lunch midterms when she started having coughing and was not able to breathe. The nurse at the facility had to do a Heimlich maneuver to revive her. After that the patient was transferred to the emergency department. In the ED the patient was found to be hypoxic and sounded chronically and on suction for residual including half digested part of position was removed. Since she came in here she was treated with antibiotics for bilateral pulmonary infiltrates more in the right than the left. She is now on broad-spectrum antibiotics under the guidance of infectious disease. Subsequently she was noted to have a an effusion in the right side which was tapped and hence this consult. When I saw her she was sleepy patient was a poor historian she does have significant dementia and unfortunately she seems to be aspirating chronically. No other history could not be obtained. There is no history suggestive of significant smoking at least in the chart. Since she came in here she has had a CT scan of the chest which had shown bilateral pulmonary infiltrate and also multiple rib fractures especially in the right side. Review of Systems Constitutional: Reports: see HPI. Cardiovascular: Reports: see HPI. Respiratory: Reports: see HPI, cough, hemoptysis, short of breath. Denies: orthopnea. Genitourinary: Denies: dysuria, frequency, hematuria, hesitation. Musculoskeletal: Denies: joint pain, muscle pain. Allergies/Medications Allergies: Coded Allergies: Opioids - Morphine Analogues (N/V, MADE JAMI 10/28/15) Home Med List: Acetaminophen (Tylenol Extra Strength) 500 MG TABLET 2 TAB PO TID PAIN CONTROL (Reported) Atenolol 25 MG TAB 1 TAB PO Wednesday BP/HEART (Reported) Calcium Carbonate/Vitamin D3 (Os-Carrillo 500+D3 Caplet) 1 EACH TABLET 1 TAB PO DAILY VITAMIN SUPPORT (Reported) Dextran 70/Hypromellose (Artificial Tears) 1 EACH DROPERETTE 1 DROP OP Q4H PRN DRY EYES - BOTH EYES (Reported) Duloxetine HCl 30 MG CAPSULE.DR 1 CAP PO Q12 DEPRESSION (Reported) Ferrous Sulfate 325 MG TABLET 1 TAB PO DAILY VITAMIN SUPPORT (Reported) Lamotrigine 150 MG TABLET 1 TAB PO Q12 SEIZURES (Reported) Multivitamin (One Daily Multivitamin) 1 TAB TAB 1 TAB PO DAILY SUPPLEMENT ( Reported) Review of Systems Review of Systems Constitutional: Reports: see HPI. Past History Travel History Traveled to [place] past 21 day No Medical History Neurological: dementia, EPILEPSY EENT: cataracts Cardiovascular: hypertension Respiratory: NONE Gastrointestinal: NONE Hepatic: NONE Renal: URINARY RETENTION Musculoskeletal: L HIP REMOVAL OF HARDWARE Psychiatric: NONE Endocrine: THYROIDECTOMY Blood Disorders: anemia Cancer(s): NONE STAPLER HAND/Reproductive: BILATERAL MASTECTOMY Surgical History Surgical History: cataract removal, masectomy (bilateral), LEFT HIP SURGERY AFTER FRACTURE with subsequent removal , PATIENT UNSURE oophorectomy breast cancer s/p bilateral mastectomy thyroidectomy See Admission History & Physical Examination Report for detailed history. status post thyroidectomy Family History Relations & Conditions If Any: MOTHER Relation not specified for: Essential hypertension Psychosocial History Where Do You Live? Extended Care Facility Services at Home: Nursing Primary Language: Kinyarwanda Smoking Status: Never Smoked ETOH Use: denies use Functional Ability Ambulation: non-ambulatory, Wheelchair (usual means of mobilization and mobility function) (patient's ability to perform independent transfers is unclear) Exam & Diagnostic Data Last 24 Hrs of Vital Signs/I&O Vital Signs Date Time Temp Pulse Resp B/P Pulse O2 O2 Flow FiO2 Ox Delivery Rate 07/14 1213 Room Air 2.0L 07/14 1058 Room Air 2.0L 07/14 0719 98.3 98 24 120/60 91 Nasal 3.0L Cannula 07/14 0000 94 Nasal 3.5L Cannula 07/13 2212 98.9 98 20 126/60 93 07/13 1916 89 Nasal 3.0L Cannula 07/13 1524 97.7 93 22 120/60 95 Intake & Output 07/14 1600 07/14 0800 07/14 0000 Intake Total 30 250 Output Total 275 300 Balance -245 -50 Intake, IV 30 10 Intake, Oral 240 Number 1 3 Bowel Movements Output, Urine 275 300 Last 48 Hrs of Labs/Branden: Laboratory Tests 07/14/16 1125: CBC w Diff MAN DIFF ORDERED, RBC 2.12 L, MCV 91.1, MCH 30.6, RDW 14.1, MPV 7.2 L, Gran % 89.1 H, Lymphocytes % 3.4 L, Monocytes % 5.0, Eosinophils % 2.5, Basophils % 0 L, Absolute Granulocytes 16.8 H, Segmented Neutrophils Pending, Absolute Lymphocytes 0.6 L, Absolute Monocytes 0.9 H, Absolute Eosinophils 0.5 , Absolute Basophils 0, PUBS MCHC 33.6 07/13/16 0615: Anion Gap 6, Estimated GFR > 60, BUN/Creatinine Ratio 24.0, CBC w Diff NO MAN DIFF REQ, RBC 2.34 L, MCV 91.0, MCH 30.4, RDW 14.2, MPV 7.6, Gran % 90.7 H, Lymphocytes % 3.1 L, Monocytes % 3.6, Eosinophils % 2.5, Basophils % 0.1, Absolute Granulocytes 16.7 H, Absolute Lymphocytes 0.6 L, Absolute Monocytes 0.7 H, Absolute Eosinophils 0.5, Absolute Basophils 0, PUBS MCHC 33.4 Assessment/Plan Impression/Plan: Physical Exam General Appearance: Alert, Oriented X3, Cooperative, No Acute Distress Other Physical Findings: Skin No Rashes, No Breakdown HEENT Atraumatic, PERRLA Neck Supple, No JVD Lymphatic Axillary nl, Cervical nl Cardiovascular Regular Rate, Normal S1, Normal S2 Lungs decreased breath sounds bilaterally, CTA Abdomen Normal Bowel Sounds, Soft, No Tenderness Neurological Normal Gait, Normal Speech, Strength at 5/5 X4 Ext, Normal Tone Extremities No Clubbing, No Cyanosis, No Edema Vascular Normal Pulses, Pulses Symmetrical SIGNIFICANT DATA Chest x-ray showed right-sided patchy opacity with improvement in the pleural effusion CT scan reviewed on July 08 it showed mucous plugging within the right lower lobe bronchus with collapse of bilateral lower lobes with multiple rib fractures with significant constipation noted Modified barium swallow showed no evidence suggestive tracheal aspiration Pleural fluid analysis reviewed pH was 7.39 Pleural fluid analysis showed significant bloody pleural effusion, white count 1980 with 78% polys with 10% lymphocytes and 12% monos histocytes. Pleural fluid analysis was more suggestive of probably a transudate however the LDH was elevated as patient appeared to have had bloody pleural effusion probably from trauma her protein was less than 2 amylase lipase was unremarkable LDH was elevated glucose was 124 Her hemoglobin was significantly low yesterday at 7.1 down to 6.5 today hematocrit is low. Her BUN/creatinine normal potassium 3.8 white count was still elevated at 18,000 and initially when she came in it was 30,000 Her previous echocardiogram showed normal ejection fraction no significant pulmonary hypertension IMPRESSION This is a 89-year-old lady with significant dementia, hypertension, seizure disorder, previous iron deficiency anemia, depression, was admitted to the hospital after a significant choking episode following which she had had aggressive Heimlich maneuver in the care home now seems to be improving while on antibiotics as far as her respiratory status is concerned and her issues include * Bloody hemorrhagic pleural effusion most likely related to either a parapneumonic effusion which appears to be sympathetic type effusion with no evidence suggestive empyema versus significant trauma while she was having the Heimlich maneuver with multiple rib fractures in the right side. Pleural fluid analysis is most likely suggestive of a transudate as a protein was less than 2. LDH is probably high related to hemothorax. Unlikely that this is malignancy. * Bilateral pulmonary infiltrates related to aspiration pneumonitis which is slightly better after broad-spectrum antibiotics. Patient did pass her swallowing evaluation however * Significant anemia most likely related to multiple factors. However hemothorax needs to be ruled out and patient would require repeat chest x-ray again to see whether a right-sided effusion has increased * Worsening dementia with previous history of seizure and epilepsy with no evidence suggestive of significant epilepsy at this present time * Significant constipation noted before with recent bowel movements noted today RECOMMENDATION * Check chest x-ray again to see whether this effusion is increasing and if she does have a sizable effusion he probably may need to repeat chest CT to evaluate and see whether she has accumulated this fluid and we can also assess and rule out hemothorax * 7 days of antibiotics * Sputum culture if any * Await cytology from the pleural fluid * Check stool for heme * Transfuse to keep her hemoglobin more than 7 * Continue her other medications * Feed while upright with aspiration precautions * If she continues to have significant reduction in her hemoglobin her Lovenox may need to be stopped and Venodyne boots may need to be used Overall prognosis appears guarded Consult Acknowledgment - Thank you for your consult request.
--- NOTE | 2016-07-14 14:12 | NUR ---
Physical Therapy - Reconsult received and baseline LOF clarified. Pt is from an assisted living facility ([facility]) where she requires assist x 1 for transfers in and out of her W/C. Pt is currently very lethargic and awaiting blood transfusion, will f/u to complete eval tomorrow as appropriate.
[2016-07-14 14:41] VITALS: BP 120/60
--- NOTE | 2016-07-14 16:02 | RADIOLOGY REPORT ---
EXAMINATION: XR PORTABLE CHEST CLINICAL INFORMATION: Anemia COMPARISON: 07/10/2016 TECHNIQUE: Portable view of the chest was obtained. FINDINGS: There is redemonstrated left lung opacity, most prominently in the perihilar region and at the base. Aeration at the left base is slightly worsened from prior. A small left pleural effusion is present. There is mild hazy opacification of the right lung, and a suspected trace right pleural effusion. No pneumothorax is seen. Cardiac size is within normal limits. Calcification is present at the aortic arch. Multiple rib fractures are better delineated on recent CT 07/08/2016. IMPRESSION: 1. Moderately extensive left lung opacification, most prominently in the perihilar region and base. Small left pleural effusion. In comparison to 07/10/2016, left basilar opacification has mildly worsened. 2. Mild haziness throughout the right hemithorax, similar to prior. Trace right pleural effusion.
--- NOTE | 2016-07-14 17:15 | PN- Infect Dx ---
Subjective Subjective: Afebrile. She is unable to provide any history Objective Last 24 Hrs of Vital Signs/I&O Vital Signs Date Time Temp Pulse Resp B/P Pulse O2 O2 Flow FiO2 Ox Delivery Rate 07/14 1441 98.7 94 18 120/60 94 Nasal 3.0L Cannula 07/14 1348 Room Air 2.0L 07/14 1213 Room Air 2.0L 07/14 1058 Room Air 2.0L 07/14 0719 98.3 98 24 120/60 91 Nasal 3.0L Cannula 07/14 0000 94 Nasal 3.5L Cannula 07/13 2212 98.9 98 20 126/60 93 07/13 1916 89 Nasal 3.0L Cannula Intake & Output 07/14 1600 07/14 0800 07/14 0000 Intake Total 780 30 250 Output Total 300 275 300 Balance 480 -245 -50 Intake, IV 300 30 10 Intake, Oral 480 240 Number 5 3 Bowel Movements Output, Urine 300 275 300 Physical Exam Other Physical Findings: She is awake and alert, though lethargic, in no apparent distress. Lungs decreased breath sounds bilaterally with scattered crackles Heart regular rhythm with no murmur Extremities no cyanosis, clubbing or edema Calle catheter is now in place Results Last 24 Hours of Lab Results: Laboratory Tests 07/14 1125 Hematology CBC w Diff MAN DIFF ORDERED WBC (4.8 - 10.8 /CUMM) 18.9 H RBC (4.20 - 5.40 /CUMM) 2.12 L Hgb (12.0 - 16.0 G/DL) 6.5 *L Hct (37 - 47 %) 19.3 *L MCV (81.0 - 99.0 FL) 91.1 MCH (27.0 - 31.0 PG) 30.6 RDW (11.5 - 14.5 %) 14.1 Plt Count (130 - 400 /CUMM) 271 MPV (7.4 - 10.4 FL) 7.2 L Gran % (42.2 - 75.2 %) 89.1 H Lymphocytes % (20.5 - 51.1 %) 3.4 L Monocytes % (1.7 - 9.3 %) 5.0 Eosinophils % (0 - 5 %) 2.5 Basophils % (0.0 - 2.0 %) 0 L Absolute Granulocytes (1.4 - 6.5 /CUMM) 16.8 H Absolute Lymphocytes (1.2 - 3.4 /CUMM) 0.6 L Absolute Monocytes (0.10 - 0.60 /CUMM) 0.9 H Absolute Eosinophils (0.0 - 0.7 /CUMM) 0.5 Absolute Basophils (0.0 - 0.2 /CUMM) 0 Platelet Estimate (ADEQUATE) VERIFIED BY SMEAR Polychromasia 1+ Basophilic Stippling SLIGHT PUBS MCHC (33.0 - 37.0 G/DL) 33.6 Last 24 Hours of Branden Results: Right pleural fluid culture July 10 negative Blood cultures July 10 negative Urine culture July 11 negative Recent Imaging Studies: Chest x-ray July 14 moderately extensive left lung opacification, with a small left pleural effusion; mild haziness throughout the right hemithorax, similar to the prior exam Assessment/Plan Impression: Overall status remains poor, though she remains afebrile and white blood cell count has decreased on empiric treatment with Vancomycin and Ceftazidime, now Day 4 for presumed aspiration pneumonia not responsive to 5 days of Unasyn. The hemorrhagic right pleural effusion is felt possibly secondary to trauma, with pulmonary comments noted. Her H&H has decreased further, possibly related to the hemothorax. Urinary retention persists, with Calle inserted because of nursing concern regarding urethral inflammation. Suggestion: 1. Further management of her hemorrhagic pleural effusion per Pulmonary 2. Follow-up pleural fluid cytology 3. Continue Vancomycin and Ceftazidime
--- NOTE | 2016-07-14 20:01 | PN- Att Addend ---
Attending Addendum Attending Brief Note Patient still weak in bed lethargic at times afebrile. Her white count is still elevated and her hemoglobin and hematocrit are dropping obvious site of any bleeding patient my need a transfusion before starting disposition plans. Also check with infectious diseases and antibiotic therapy see how long she needs IV antibiotics and what to make Of white count still being elevated. I think the patient is to go to assisted living we might make arrangements when ready to go to short-term rehabilitation and maybe long-term Current Medications Sig/Thalia Start time Last Medication Dose Route Stop Time Status Admin Acetaminophen 650 MG Q6P PRN 07/09 1430 AC 07/10 KS 1235 Acetaminophen 650 MG Q6P PRN 07/05 1600 AC 07/14 PO 1710 Albuterol Sulfate 3 ML Q4P PRN 07/11 1530 AC INH Albuterol Sulfate 3 ML BID 07/08 2200 AC 07/11 INH 1112 Atenolol 25 MG 07/06 1000 AC 07/13 PO 1006 Calcium 600 MG BID 07/05 2200 AC 07/14 PO 0854 Ceftazidime 1,000 MG Q12H 07/10 1400 AC 07/14 IV 1447 Duloxetine HCl 30 MG Q12 07/05 2200 AC 07/14 PO 0854 Enoxaparin Sodium 40 MG DAILY 07/05 1717 DC 07/14 SC 0854 Ferrous Sulfate 325 MG DAILY 07/06 1000 AC 07/14 PO 0854 Lamotrigine 150 MG Q12 07/05 2200 AC 07/14 PO 0854 Levetiracetam 500 MG 7:30 AM, & 4:30 PM 07/07 0730 AC 07/14 PO 1703 Multivitamins 1 TAB DAILY 07/06 1000 AC 07/14 Therapeutic PO 0854 Patient Medication 1 ED .STK-MED ONE 07/14 1423 DC Teaching ED 07/14 1424 Vancomycin HCl 1,000 MG Q24H 07/10 1400 AC 07/14 Sodium Chloride 250 ML IV 1447 Laboratory Tests 07/14/16 1125: CBC w Diff MAN DIFF ORDERED, RBC 2.12 L, MCV 91.1, MCH 30.6, RDW 14.1, MPV 7.2 L, Gran % 89.1 H, Lymphocytes % 3.4 L, Monocytes % 5.0, Eosinophils % 2.5, Basophils % 0 L, Absolute Granulocytes 16.8 H, Absolute Lymphocytes 0.6 L, Absolute Monocytes 0.9 H, Absolute Eosinophils 0.5, Absolute Basophils 0, Platelet Estimate VERIFIED BY SMEAR, Polychromasia 1+, Basophilic Stippling SLIGHT, PUBS MCHC 33.6 07/13/16 0615: Anion Gap 6, Estimated GFR > 60, BUN/Creatinine Ratio 24.0, CBC w Diff NO MAN DIFF REQ, RBC 2.34 L, MCV 91.0, MCH 30.4, RDW 14.2, MPV 7.6, Gran % 90.7 H, Lymphocytes % 3.1 L, Monocytes % 3.6, Eosinophils % 2.5, Basophils % 0.1, Absolute Granulocytes 16.7 H, Absolute Lymphocytes 0.6 L, Absolute Monocytes 0.7 H, Absolute Eosinophils 0.5, Absolute Basophils 0, PUBS MCHC 33.4 Vital Signs Date Time Temp Pulse Resp B/P Pulse O2 O2 Flow FiO2 Ox Delivery Rate 07/14 1441 98.7 94 18 120/60 94 Nasal 3.0L Cannula 07/14 1348 Room Air 2.0L 07/14 1213 Room Air 2.0L Intake & Output 07/14 1600 Intake Total 780 Output Total 300 Balance 480 Intake, IV 300 Intake, Oral 480 Number 5 Bowel Movements Output, Urine 300
--- NOTE | 2016-07-14 20:48 | NUR ---
BIOTECH PRODUCTION SPECIALIST [facility] NOTIFIED OF PATIENTS DARK TARRY STOOL, WITH A POSITIVE STOOL GUAIAC PATIENT IS CURRENTLY RECEIVING BLOOD. WILL CONTINUE TO MONITOR.
[2016-07-15 00:21] VITALS: BP 146/78
--- NOTE | 2016-07-15 01:29 | NUR ---
PATIENT SWALLOWED ABOUT 3/4 OF EACH OF HER 2200 MEDICATIONS. COTTON OPENER AWARE.
[2016-07-15 01:37] LABS: ABSOLUTE BASOPHIL COUNT 0 /CUMM (0.0-0.2); ABSOLUTE EOSINOPHIL COUNT 0.6 /CUMM (0.0-0.7); ABSOLUTE GRANULOCYTE CT 17.3 /CUMM (1.4-6.5); ABSOLUTE LYMPH COUNT 0.6 /CUMM (1.2-3.4); ABSOLUTE MONOCYTE COUNT 0.7 /CUMM (0.10-0.60); BASOPHIL % 0.1 % (0.0-2.0); EOSINOPHIL % 3.3 % (0-5); GRANULOCYTE % 90.1 % (42.2-75.2); MEAN CORPUSCULAR HGB 29.9 PG (27.0-31.0); MEAN CORPUSCULAR HGB CONC 33.9 G/DL (33.0-37.0); MEAN CORPUSCULAR VOLUME 88.4 FL (81.0-99.0); MEAN PLATELET VOLUME 6.8 FL (7.4-10.4); PLATELET COUNT 286 /CUMM (130-400); WHITE BLOOD CELL COUNT 19.2 /CUMM (4.8-10.8)
[2016-07-15 01:44] LABS: HEMATOCRIT 28.5 % (37-47); RED BLOOD CELL CT 3.23 /CUMM (4.20-5.40)
[2016-07-15 06:20] VITALS: BP 124/60
--- NOTE | 2016-07-15 06:21 | PN- Housestaff ---
Subjective Follow-up For: Aspiration pneumonia Subjective: Patient is seen and examined at bedside. No acute events reported overnight. Remains afebrile and HDS. Resting comfortably in bed. Awake and alert. Appears less lethargic today, saying "good morning." She also states that she gets morning and night mixed up. Review of Systems Constitutional: Reports: see HPI. Objective Last 24 Hrs of Vital Signs/I&O Vital Signs Date Time Temp Pulse Resp B/P Pulse O2 O2 Flow FiO2 Ox Delivery Rate 07/15 1012 84 124/60 07/15 0800 Nasal 3.0L Cannula 07/15 0620 97.7 84 18 124/60 94 Nasal Cannula 07/15 0021 97.8 86 18 146/78 93 Nasal 3.0L Cannula 07/15 0000 93 Nasal 3.0L Cannula 07/14 1441 98.7 94 18 120/60 94 Nasal 3.0L Cannula 07/14 1348 Room Air 2.0L Intake & Output 07/15 1600 07/15 0800 07/15 0000 Intake Total Output Total 300 500 Balance -300 -500 Number 2 Bowel Movements Output, Urine 300 500 Physical Exam General Appearance: Alert, Oriented X3, Cooperative, No Acute Distress Other Physical Findings: Skin No Rashes, No Breakdown HEENT Atraumatic, PERRLA Neck Supple, No JVD Lymphatic Axillary nl, Cervical nl Cardiovascular Regular Rate, Normal S1, Normal S2 Lungs decreased breath sounds bilaterally, CTA Abdomen Normal Bowel Sounds, Soft, No Tenderness Neurological Normal Gait, Normal Speech, Strength at 5/5 X4 Ext, Normal Tone Extremities No Clubbing, No Cyanosis, No Edema Vascular Normal Pulses, Pulses Symmetrical Current Medications: Current Medications Sig/Thalia Start time Last Medication Dose Route Stop Time Status Admin Acetaminophen 650 MG .STK-MED ONE 07/14 1704 DC PO 07/14 1705 Acetaminophen 650 MG Q6P PRN 07/09 1430 AC 07/10 DC 1235 Acetaminophen 650 MG Q6P PRN 07/05 1600 AC 07/14 PO 1710 Albuterol Sulfate 3 ML Q4P PRN 07/11 1530 AC INH Albuterol Sulfate 3 ML BID 07/08 2200 AC 07/11 INH 1112 Atenolol 25 MG 07/06 1000 AC 07/15 PO 1012 Calcium 600 MG BID 07/05 220 AC 07/15 PO 1012 Ceftazidime 1,000 MG Q12H 07/10 1400 AC 07/15 IV 0255 Duloxetine HCl 30 MG Q12 07/05 2200 AC 07/15 PO 1012 Enoxaparin Sodium 40 MG DAILY 07/05 1717 DC 07/14 SC 0854 Ferrous Sulfate 325 MG DAILY 07/06 1000 AC 07/15 PO 1012 Lamotrigine 150 MG Q12 07/05 2200 AC 07/15 PO 1012 Levetiracetam 500 MG 7:30 AM, & 4:30 PM 07/07 0730 AC 07/15 PO 0815 Multivitamins 1 TAB DAILY 07/06 1000 AC 07/15 Therapeutic PO 1012 Patient Medication 1 ED .STK-MED ONE 07/14 1423 SC Teaching ED 07/14 1424 Vancomycin HCl 1,000 MG Q24H 07/10 1400 AC 07/14 Sodium Chloride 250 ML IV 1447 Last 24 Hrs of Lab/Branden Results Last 24 Hrs of Labs/Mics: Laboratory Tests 07/15/16 0600: Sodium Cancelled, Potassium Cancelled, Chloride Cancelled, Carbon Dioxide Cancelled, Anion Gap Cancelled, BUN Cancelled, Creatinine Cancelled, BUN/ Creatinine Ratio Cancelled, CBC w Diff Cancelled, WBC Cancelled, RBC Cancelled, Hgb Cancelled, Hct Cancelled, MCV Cancelled, MCH Cancelled, RDW Cancelled, Plt Count Cancelled, MPV Cancelled, PUBS MCHC Cancelled 07/15/16 0115: CBC w Diff MAN DIFF ORDERED, RBC 3.23 L, MCV 88.4, MCH 29.9, RDW 15.0 H, MPV 6.8 L, Gran % 90.1 H, Lymphocytes % 2.9 L, Monocytes % 3.6, Eosinophils % 3.3 , Basophils % 0.1, Absolute Granulocytes 17.3 H, Segmented Neutrophils 94 H, Band Neutrophils 2, Absolute Lymphocytes 0.6 L, Monocytes 2, Absolute Monocytes 0.7 H, Eosinophils 2, Absolute Eosinophils 0.6, Absolute Basophils 0, Platelet Estimate ADEQUATE, Polychromasia 1+, Poikilocytosis 1+, Ovalocytes 1+, PUBS MCHC 33.9, Fld Total RBCs Counted 100 07/15/16 0037: Sodium Cancelled, Potassium Cancelled, Chloride Cancelled, Carbon Dioxide Cancelled, Anion Gap Cancelled, BUN Cancelled, Creatinine Cancelled, BUN/ Creatinine Ratio Cancelled 07/14/16 1800: CBC w Diff Cancelled, WBC Cancelled, RBC Cancelled, Hgb Cancelled, Hct Cancelled , MCV Cancelled, MCH Cancelled, RDW Cancelled, Plt Count Cancelled, MPV Cancelled, PUBS MCHC Cancelled Assessment/Plan Assessment: 89-year-old female with a past medical history of hypertension, seizures, iron deficiency anemia and depression who presented after a choking spell, admitted for aspiraton pneumonia. Patient has been treated with Unasyn intially. However patient continued to spike fevers with a white count trending up. Antibiotics were broadened to IV vancomycin and Fortaz subsequently. Since then patient has been improving with no recurrent fevers. Also showing moderate improvement in mental status. Problem list: # Aspiration pneumonia secondary to choking spell on the food # Anemia # History of hypertension # History of depression # History of epilepsy/seizures # Persistent leukocytosis Plans: * Continue IV vancomycin 1g IV daily and Fortaz 1g IV BID per ID rec * Check CBC daily, trend WBC and H/H * Patient received 2U of pRBC on 07/14 with apprp response. Hgb 9.7 s/p transfusioin * Follow cytology of pl fluid * Cont to appreciate ID recs * Continue with all her home medications * DVT prophylaxis at all times with subcutaneous Lovenox * Passed MBS - puree and thin * Mild pain pathway - no narcotics given AMS and per POA's request * Code: DNR/DNI Problem List: 1. Aspiration pneumonia Pain Ratin Pain Location: 0 Pain Goal: Remain pain free Pain Plan: Mild pathway Tomorrow's Labs & Rationales: CBC to monitor leukocytosis
--- NOTE | 2016-07-15 11:23 | Patient Discharge Instructions ---
Discharge Instructions General Discharge Information You were seen/treated for: Pneumonia Special Instructions: Please follow up with Dr. Fairchild (tube knitter) and Dr. Cyr (primary care ) within a week of discharge. Diet Continue normal diet: Yes Activity Full Activity/No Limits: No (as tolerated) Acute Coronary Syndrome Inclusion Criteria At DC or during hospital stay patient has or had the following: ACS DIAGNOSIS No Discharge Core Measures Meds if any: Prescribed or Continued at Discharge Meds if any: NOT Prescribed or Continued at Discharge Congestive Heart Failure Inclusion Criteria At DC or during hospital stay patient has or had the following: CHF DIAGNOSIS No Discharge Core Measures Meds if any: Prescribed or Continued at Discharge Meds if any: NOT Prescribed or Continued at Discharge Cerebrovascular accident Inclusion Criteria At DC or during hospital stay patient has or had the following: CVA/TIA Diagnosis No Discharge Core Measures Meds if any: Prescribed or Continued at Discharge Meds if any: NOT Prescribed or Continued at Discharge Venous thromboembolism Inclusion Criteria VTE Diagnosis No VTE Type NONE VTE Confirmed by (Test) NONE Discharge Core Measures - Per Current guidelines, there needs to be overlap - treatment for the first 5 days of Warfarin therapy. - If discharged on Warfarin prior to 5 days of - overlap therapy, the patient will need to be - assessed for post discharge needs including - *Post discharge parental anticoagulation - *Warfarin and/or parental anticoagulation education - *Follow up date to check INR post discharge At least 5 days overlap therapy as Inpatient No Meds if any: Prescribed or Continued at Discharge Note: Overlap Therapy is Warfarin and Anticoagulant Meds if any: NOT Prescribed or Continued at Discharge
--- NOTE | 2016-07-15 12:36 | PN- Pulmonary ---
Subjective HPI/Critical Care Issues: Still sleeping Afebrile vss Offers no other complaint Objective Current Medications: Current Medications Sig/Thalia Start time Last Medication Dose Route Stop Time Status Admin Acetaminophen 650 MG .STK-MED ONE 07/14 1704 DC PO 07/14 1705 Acetaminophen 650 MG Q6P PRN 07/09 1430 AC 07/10 OR 1235 Acetaminophen 650 MG Q6P PRN 07/05 1600 AC 07/14 PO 1710 Albuterol Sulfate 3 ML Q4P PRN 07/11 1530 AC INH Albuterol Sulfate 3 ML BID 07/08 2200 AC 07/11 INH 1112 Atenolol 25 MG 07/06 1000 AC 07/15 PO 1012 Calcium 600 MG BID 07/05 2200 AC 07/15 PO 1012 Ceftazidime 1,000 MG Q12H 07/10 1400 AC 07/15 IV 0255 Duloxetine HCl 30 MG Q12 07/05 2200 AC 07/15 PO 1012 Enoxaparin Sodium 40 MG DAILY 07/05 1717 DC 07/14 SC 0854 Ferrous Sulfate 325 MG DAILY 07/06 1000 AC 07/15 PO 1012 Lamotrigine 150 MG Q12 07/05 2200 AC 07/15 PO 1012 Levetiracetam 500 MG 7:30 AM, & 4:30 PM 07/07 0730 AC 07/15 PO 0815 Multivitamins 1 TAB DAILY 07/06 1000 AC 07/15 Therapeutic PO 1012 Patient Medication 1 ED .STK-MED ONE 07/14 1423 DC Teaching ED 07/14 1424 Vancomycin HCl 1,000 MG Q24H 07/10 1400 AC 07/14 Sodium Chloride 250 ML IV 1447 Vital Signs & I&O Last 24 Hrs of Vitals and I&O: Vital Signs Date Time Temp Pulse Resp B/P Pulse O2 O2 Flow FiO2 Ox Delivery Rate 07/15 1012 84 124/60 07/15 0800 Nasal 3.0L Cannula 07/15 0620 97.7 84 18 124/60 94 Nasal Cannula 07/15 0021 97.8 86 18 146/78 93 Nasal 3.0L Cannula 07/15 0000 93 Nasal 3.0L Cannula 07/14 1441 98.7 94 18 120/60 94 Nasal 3.0L Cannula 07/14 1348 Room Air 2.0L Intake & Output 07/15 1600 07/15 0800 07/15 0000 Intake Total Output Total 300 500 Balance -300 -500 Number 2 Bowel Movements Output, Urine 300 500 Impression/Plan Impression/Plan Impression/Plan: Physical Exam General Appearance:Sleeping Other Physical Findings: Skin No Rashes, No Breakdown HEENT Atraumatic, PERRLA Neck Supple, No JVD Lymphatic Axillary nl, Cervical nl Cardiovascular Regular Rate, Normal S1, Normal S2 Lungs decreased breath sounds bilaterally, CTA Abdomen Normal Bowel Sounds, Soft, No Tenderness Neurological Normal Gait, Normal Speech, Strength at 5/5 X4 Ext, Normal Tone Extremities No Clubbing, No Cyanosis, No Edema Vascular Normal Pulses, Pulses Symmetrical SIGNIFICANT DATA Chest x-ray showed right-sided patchy opacity with improvement in the pleural effusion CT scan reviewed on July 08 it showed mucous plugging within the right lower lobe bronchus with collapse of bilateral lower lobes with multiple rib fractures with significant constipation noted Modified barium swallow showed no evidence suggestive tracheal aspiration Pleural fluid analysis reviewed pH was 7.39 Pleural fluid analysis showed significant bloody pleural effusion, white count 1980 with 78% polys with 10% lymphocytes and 12% monos histocytes. Pleural fluid analysis was more suggestive of probably a transudate however the LDH was elevated as patient appeared to have had bloody pleural effusion probably from trauma her protein was less than 2 amylase lipase was unremarkable LDH was elevated glucose was 124 Her previous echocardiogram showed normal ejection fraction no significant pulmonary hypertension IMPRESSION This is a 89-year-old lady with significant dementia, hypertension, seizure disorder, previous iron deficiency anemia, depression, was admitted to the hospital after a significant choking episode following which she had had aggressive Heimlich maneuver in the [facility]dc now seems to be improving while on antibiotics as far as her respiratory status is concerned and her issues include * Bloody hemorrhagic pleural effusion most likely related to either a parapneumonic effusion which appears to be sympathetic type effusion with no evidence suggestive empyema versus significant trauma while she was having the Heimlich maneuver with multiple rib fractures in the right side. Pleural fluid analysis is most likely suggestive of a transudate as a protein was less than 2. LDH is probably high related to hemothorax. Unlikely that this is malignancy. * Bilateral pulmonary infiltrates related to aspiration pneumonitis. Patient did pass her swallowing evaluation however. * May have pulm contusion in the left side due to fractured ribs aswell which could be causing the infiltrate * Significant anemia most likely related to multiple factors. No sig hemothorax by Cxr from yesterday * Worsening dementia with previous history of seizure and epilepsy with no evidence suggestive of significant epilepsy at this present time * Significant constipation noted before with recent bowel movements noted today RECOMMENDATION * Rpt cxr in am * 7 days of antibiotics * Sputum culture if any * Await cytology from the pleural fluid * Watch hemoglobin * Continue her other medications * Feed while upright with aspiration precautions * Use venodyne boots Overall prognosis appears guarded
--- NOTE | 2016-07-15 13:17 | PN- Infect Dx ---
Subjective Subjective: Afebrile without complaints Objective Last 24 Hrs of Vital Signs/I&O Vital Signs Date Time Temp Pulse Resp B/P Pulse O2 O2 Flow FiO2 Ox Delivery Rate 07/15 1012 84 124/60 07/15 0800 Nasal 3.0L Cannula 07/15 0620 97.7 84 18 124/60 94 Nasal Cannula 07/15 0021 97.8 86 18 146/78 93 Nasal 3.0L Cannula 07/15 0000 93 Nasal 3.0L Cannula 07/14 1441 98.7 94 18 120/60 94 Nasal 3.0L Cannula 07/14 1348 Room Air 2.0L Intake & Output 07/15 1600 07/15 0800 07/15 0000 Intake Total Output Total 300 500 Balance -300 -500 Number 2 Bowel Movements Output, Urine 300 500 Physical Exam Other Physical Findings: She is more awake and alert today, responding to questions but resistant to exam Lungs decreased breath sounds bilaterally Heart regular rhythm with no murmur Extremities no cyanosis, clubbing or edema Calle catheter is in place Results Last 24 Hours of Lab Results: Laboratory Tests 07/15 07/15 0600 0115 Chemistry Sodium Cancelled Potassium Cancelled Chloride Cancelled Carbon Dioxide Cancelled Anion Gap Cancelled BUN Cancelled Creatinine Cancelled BUN/Creatinine Ratio Cancelled Hematology CBC w Diff Cancelled MAN DIFF ORDERED WBC (4.8 - 10.8 /CUMM) Cancelled 19.2 H RBC (4.20 - 5.40 /CUMM) Cancelled 3.23 L Hgb (12.0 - 16.0 G/DL) Cancelled 9.7 L Hct (37 - 47 %) Cancelled 28.5 L MCV (81.0 - 99.0 FL) Cancelled 88.4 MCH (27.0 - 31.0 PG) Cancelled 29.9 RDW (11.5 - 14.5 %) Cancelled 15.0 H Plt Count (130 - 400 /CUMM) Cancelled 286 MPV (7.4 - 10.4 FL) Cancelled 6.8 L Gran % (42.2 - 75.2 %) 90.1 H Lymphocytes % (20.5 - 51.1 %) 2.9 L Monocytes % (1.7 - 9.3 %) 3.6 Eosinophils % (0 - 5 %) 3.3 Basophils % (0.0 - 2.0 %) 0.1 Absolute Granulocytes (1.4 - 6.5 /CUMM) 17.3 H Segmented Neutrophils (42.2 - 75.2 %) 94 H Band Neutrophils (0.0 - 5.0 %) 2 Absolute Lymphocytes (1.2 - 3.4 /CUMM) 0.6 L Monocytes (1.7 - 9.3 %) 2 Absolute Monocytes (0.10 - 0.60 /CUMM) 0.7 H Eosinophils (0 - 5.0 %) 2 Absolute Eosinophils (0.0 - 0.7 /CUMM) 0.6 Absolute Basophils (0.0 - 0.2 /CUMM) 0 Platelet Estimate (ADEQUATE) ADEQUATE Polychromasia 1+ Poikilocytosis 1+ Ovalocytes 1+ PUBS MCHC (33.0 - 37.0 G/DL) Cancelled 33.9 Other Body Source Fld Total RBCs Counted (%) 100 07/15 07/14 0037 1800 Chemistry Sodium Cancelled Potassium Cancelled Chloride Cancelled Carbon Dioxide Cancelled Anion Gap Cancelled BUN Cancelled Creatinine Cancelled BUN/Creatinine Ratio Cancelled Hematology CBC w Diff Cancelled WBC Cancelled RBC Cancelled Hgb Cancelled Hct Cancelled MCV Cancelled MCH Cancelled RDW Cancelled Plt Count Cancelled MPV Cancelled PUBS MCHC Cancelled Last 24 Hours of Branden Results: No recent cultures Assessment/Plan Impression: Overall status remains poor, with persistent leukocytosis, though decreased from several days ago on empiric treatment with Vancomycin and Ceftazidime, now Day 5 for presumed aspiration pneumonia not responsive to 5 days of Unasyn. Her H&H is up after 2 units of blood, which may explain some of her leukocytosis. The hemorrhagic right pleural effusion is felt possibly secondary to trauma, with pulmonary comments noted. Urinary retention persists, with Calle inserted because of nursing concern regarding urethral inflammation. Suggestion: 1. Further management of her hemorrhagic pleural effusion per Pulmonary 2. Follow-up pleural fluid cytology 3. Continue Vancomycin and Ceftazidime
[2016-07-15 14:38] VITALS: BP 120/70
--- NOTE | 2016-07-15 15:42 | PN- Att Addend ---
Attending Addendum Attending Brief Note Patient looks a little better and brighter this morning. Got transfusions for low hemoglobin and hematocrit. Her hemoglobin yesterday to start was 6.5 after transfusion 9.7, hematocrit 19.3 for the transfusion and 28.5 after. No major changes on physical. Her white count is up to 19,200 despite negative urine cultures after 2 days but negative pleural fluid culture after 3 days negative blood cultures at that the chest x-ray yesterday the left lung opacification seems a little worse which check with infectious diseases see what the next step is to my need pulmonary consultation to evaluate this lung opacification Laboratory Tests 07/15/16 0600: Sodium Cancelled, Potassium Cancelled, Chloride Cancelled, Carbon Dioxide Cancelled, Anion Gap Cancelled, BUN Cancelled, Creatinine Cancelled, BUN/ Creatinine Ratio Cancelled, CBC w Diff Cancelled, WBC Cancelled, RBC Cancelled, Hgb Cancelled, Hct Cancelled, MCV Cancelled, MCH Cancelled, RDW Cancelled, Plt Count Cancelled, MPV Cancelled, PUBS MCHC Cancelled 07/15/16 0115: CBC w Diff MAN DIFF ORDERED, RBC 3.23 L, MCV 88.4, MCH 29.9, RDW 15.0 H, MPV 6.8 L, Gran % 90.1 H, Lymphocytes % 2.9 L, Monocytes % 3.6, Eosinophils % 3.3 , Basophils % 0.1, Absolute Granulocytes 17.3 H, Segmented Neutrophils 94 H, Band Neutrophils 2, Absolute Lymphocytes 0.6 L, Monocytes 2, Absolute Monocytes 0.7 H, Eosinophils 2, Absolute Eosinophils 0.6, Absolute Basophils 0, Platelet Estimate ADEQUATE, Polychromasia 1+, Poikilocytosis 1+, Ovalocytes 1+, PUBS MCHC 33.9, Fld Total RBCs Counted 100 07/15/16 0037: Sodium Cancelled, Potassium Cancelled, Chloride Cancelled, Carbon Dioxide Cancelled, Anion Gap Cancelled, BUN Cancelled, Creatinine Cancelled, BUN/ Creatinine Ratio Cancelled 07/14/16 1800: CBC w Diff Cancelled, WBC Cancelled, RBC Cancelled, Hgb Cancelled, Hct Cancelled , MCV Cancelled, MCH Cancelled, RDW Cancelled, Plt Count Cancelled, MPV Cancelled, PUBS MCHC Cancelled 07/14/16 1125: CBC w Diff MAN DIFF ORDERED, RBC 2.12 L, MCV 91.1, MCH 30.6, RDW 14.1, MPV 7.2 L, Gran % 89.1 H, Lymphocytes % 3.4 L, Monocytes % 5.0, Eosinophils % 2.5, Basophils % 0 L, Absolute Granulocytes 16.8 H, Absolute Lymphocytes 0.6 L, Absolute Monocytes 0.9 H, Absolute Eosinophils 0.5, Absolute Basophils 0, Platelet Estimate VERIFIED BY SMEAR, Polychromasia 1+, Basophilic Stippling SLIGHT, PUBS MCHC 33.6 Vital Signs Date Time Temp Pulse Resp B/P Pulse O2 O2 Flow FiO2 Ox Delivery Rate 07/15 1438 98.2 80 20 120/70 96 07/15 1012 84 124/60 07/15 0800 Nasal 3.0L Cannula Intake & Output 07/15 1600 Intake Total 720 Output Total 200 Balance 520 Intake, Oral 720 Number 0 Bowel Movements Output, Urine 200
[2016-07-15 18:08] LABS: ABSOLUTE BASOPHIL COUNT 0.1 /CUMM (0.0-0.2); ABSOLUTE EOSINOPHIL COUNT 0.5 /CUMM (0.0-0.7); ABSOLUTE LYMPH COUNT 0.6 /CUMM (1.2-3.4); BASOPHIL % 0.4 % (0.0-2.0); EOSINOPHIL % 2.6 % (0-5); HEMATOCRIT 28.6 % (37-47); MEAN CORPUSCULAR HGB 29.8 PG (27.0-31.0); MEAN CORPUSCULAR HGB CONC 33.3 G/DL (33.0-37.0); MEAN CORPUSCULAR VOLUME 89.6 FL (81.0-99.0); MEAN PLATELET VOLUME 7.1 FL (7.4-10.4); PLATELET COUNT 354 /CUMM (130-400); RBC DISTRIBUTION WIDTH 15.1 % (11.5-14.5); RED BLOOD CELL CT 3.19 /CUMM (4.20-5.40)
[2016-07-15 18:16] LABS: WHITE BLOOD CELL COUNT 20.2 /CUMM (4.8-10.8)
[2016-07-15 22:13] VITALS: BP 138/70
--- NOTE | 2016-07-15 23:48 | NUR ---
1600 ALERT TO PERSON. VITAL SIGNS STABLE. ON 3L VIA NASAL CANNULA IV INFILTRATED. IV REMOVED. [employer] AWARE. NEW IV IN PLACE.
[2016-07-16 06:27] VITALS: BP 126/60
--- NOTE | 2016-07-16 06:30 | PN- Housestaff ---
Subjective Follow-up For: Aspiration pneumonia Subjective: Patient is seen and examined at bedside. No acute events reported overnight. Remains afebrile and HDS. Resting comfortably in bed. Awake and alert. Review of Systems Constitutional: Reports: see HPI. Objective Last 24 Hrs of Vital Signs/I&O Vital Signs Date Time Temp Pulse Resp B/P Pulse O2 O2 Flow FiO2 Ox Delivery Rate 07/16 06 97.9 85 18 126/60 92 Nasal Cannula 07/16 0000 Nasal 3.5L Cannula 07/15 2213 97.5 82 18 138/70 93 Nasal 4.0L Cannula 07/15 1600 96 Nasal 3.0L Cannula 07/15 1438 98.2 80 20 120/70 96 07/15 1012 84 124/60 Intake & Output 07/16 1600 07/16 0800 07/16 0000 Intake Total 0 20 Output Total 550 400 Balance -550 -380 Intake, IV 0 Intake, Oral 20 Number 2 Bowel Movements Output, Urine 550 400 Physical Exam General Appearance: Alert, Oriented X3, Cooperative, No Acute Distress Other Physical Findings: Skin No Rashes, No Breakdown HEENT Atraumatic, PERRLA Neck Supple, No JVD Lymphatic Axillary nl, Cervical nl Cardiovascular Regular Rate, Normal S1, Normal S2 Lungs decreased breath sounds bilaterally, CTA Abdomen Normal Bowel Sounds, Soft, No Tenderness Neurological Normal Gait, Normal Speech, Strength at 5/5 X4 Ext, Normal Tone Extremities No Clubbing, No Cyanosis, No Edema Vascular Normal Pulses, Pulses Symmetrical Current Medications: Current Medications Sig/Thalia Start time Last Medication Dose Route Stop Time Status Admin Acetaminophen 650 MG .STK-MED ONE 07/15 1711 DC PO 07/15 171 Acetaminophen 650 MG Q6P PRN 07/09 1430 AC 07/10 [place] 1235 Acetaminophen 650 MG Q6P PRN 07/05 1600 AC 07/15 PO 1725 Albuterol Sulfate 3 ML Q4P PRN 07/11 1530 AC INH Albuterol Sulfate 3 ML BID 07/08 2200 AC 07/11 INH 1112 Atenolol 25 MG 07/06 1000 AC 07/15 PO 1012 Calcium 600 MG BID 07/050 AC 07/15 PO 1012 Ceftazidime 1,000 MG Q12H 07/10 1400 AC 07/16 IV 0154 Duloxetine HCl 30 MG Q12 07/05 2200 AC 07/16 PO 0003 Ferrous Sulfate 325 MG DAILY 07/06 1000 AC 07/15 PO 1012 Lamotrigine 150 MG Q12 07/05 2200 AC 07/16 PO 0003 Levetiracetam 500 MG 7:30 AM, & 4:30 PM 07/07 0730 AC 07/16 PO 0802 Multivitamins 1 TAB DAILY 07/06 1000 AC 07/15 Therapeutic PO 1012 Vancomycin HCl 1,000 MG Q24H 07/10 1400 AC 07/15 Sodium Chloride 250 ML IV 1412 Last 24 Hrs of Lab/Branden Results Last 24 Hrs of Labs/Mics: Laboratory Tests 07/15/16 1650: CBC w Diff NO MAN DIFF REQ, RBC 3.19 L, MCV 89.6, MCH 29.8, RDW 15.1 H, MPV 7.1 L, Gran % 89.0 H, Lymphocytes % 3.2 L, Monocytes % 4.8, Eosinophils % 2.6 , Basophils % 0.4, Absolute Granulocytes 18.0 H, Absolute Lymphocytes 0.6 L, Absolute Monocytes 1.0 H, Absolute Eosinophils 0.5, Absolute Basophils 0.1, PUBS MCHC 33.3 Assessment/Plan Assessment: 89-year-old female with a past medical history of hypertension, seizures, iron deficiency anemia and depression who presented after a choking spell, admitted for aspiraton pneumonia. Patient has been treated with Unasyn intially. However patient continued to spike fevers with a white count trending up. Antibiotics were broadened to IV vancomycin and Fortaz subsequently. Since then patient has been improving with no recurrent fevers. Also showing moderate improvement in mental status. Problem list: # Aspiration pneumonia secondary to choking spell on the food # Anemia # History of hypertension # History of depression # History of epilepsy/seizures # Persistent leukocytosis - improving Plans: * Continue IV vancomycin 1g IV daily and Fortaz 1g IV BID per ID rec - DAY 6 * Check CBC daily, trend WBC - decreased to 16 this morning * H/H remains table at 9 * Patient received 2U of pRBC on 07/14 with apprp response. * Follow cytology of pl fluid * Cont to appreciate ID recs * Continue with all her home medications * DVT prophylaxis at all times with subcutaneous Lovenox * Passed MBS - puree and thin * Mild pain pathway - no narcotics given AMS and per POA's request * Code: DNR/DNI Problem List: 1. Aspiration pneumonia 2. Leukocytosis (leucocytosis) Pain Ratin Pain Location: 0 Pain Goal: Remain pain free Pain Plan: Mild pathway Tomorrow's Labs & Rationales: CBC to monitor leukocytosis
--- NOTE | 2016-07-16 09:56 | RADIOLOGY REPORT ---
EXAMINATION: XR PORTABLE CHEST CLINICAL INFORMATION: Anemia. COMPARISON: CXR from 07/10/2016 and 07/14/2016. TECHNIQUE: Portable view of the chest was obtained. FINDINGS: Consolidation within the left mid to lower lung remains worse compared to 07/10/2016 but not appreciably changed compared to 07/14/2016. Left pleural effusion is grossly unchanged, as well. There is a trace residual right pleural effusion after a recent thoracentesis. No pneumothorax. Pulmonary vessels appear congested and there is stable enlargement of the cardiac silhouette. Atherosclerotic calcification of the aorta. 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 The multiple rib fractures are better seen on the recent CT exam of 07/08/2016. IMPRESSION: 1. Persistent left pulmonary consolidation/pneumonia with grossly unchanged pleural effusion. 2. Cardiomegaly and pulmonary vascular congestion. No new findings in the chest compared to 07/14/2016.
[2016-07-16 11:43] LABS: ABSOLUTE BASOPHIL COUNT 0.1 /CUMM (0.0-0.2); ABSOLUTE EOSINOPHIL COUNT 0.4 /CUMM (0.0-0.7); ABSOLUTE GRANULOCYTE CT 14.2 /CUMM (1.4-6.5); ABSOLUTE LYMPH COUNT 0.5 /CUMM (1.2-3.4); ABSOLUTE MONOCYTE COUNT 0.9 /CUMM (0.10-0.60); BASOPHIL % 0.4 % (0.0-2.0); EOSINOPHIL % 2.4 % (0-5); HEMATOCRIT 29.1 % (37-47); MEAN CORPUSCULAR HGB 29.9 PG (27.0-31.0); MEAN CORPUSCULAR HGB CONC 33.1 G/DL (33.0-37.0); MEAN CORPUSCULAR VOLUME 90.4 FL (81.0-99.0); MEAN PLATELET VOLUME 6.8 FL (7.4-10.4); PLATELET COUNT 394 /CUMM (130-400); RBC DISTRIBUTION WIDTH 14.2 % (11.5-14.5); RED BLOOD CELL CT 3.22 /CUMM (4.20-5.40)
--- NOTE | 2016-07-16 12:01 | PN- Att Addend ---
Attending Addendum Attending Brief Note Patient comfortable in bed vital signs are stable patient is a febrile 2 days CBC is not back. Depending on the results we'll see if she needs any more transfusions and reassess the white count otherwise continue present treatment Current Medications Sig/Thalia Start time Last Medication Dose Route Stop Time Status Admin Acetaminophen 650 MG .STK-MED ONE 07/15 1711 DC PO 07/15 1712 Acetaminophen 650 MG Q6P PRN 07/09 1430 AC 07/10 SC 1235 Acetaminophen 650 MG Q6P PRN 07/05 1600 AC 07/15 PO 1725 Albuterol Sulfate 3 ML Q4P PRN 07/11 1530 AC INH Albuterol Sulfate 3 ML BID 07/08 2200 AC 07/11 INH 1112 Atenolol 25 MG 07/06 1000 AC 07/15 PO 1012 Calcium 600 MG BID 07/05 2200 AC 07/16 PO 1053 Ceftazidime 1,000 MG Q12H 07/10 1400 AC 07/16 IV 0154 Duloxetine HCl 30 MG Q12 07/05 2200 AC 07/16 PO 1053 Ferrous Sulfate 325 MG DAILY 07/06 1000 AC 07/16 PO 1054 Lamotrigine 150 MG Q12 07/05 2200 AC 07/16 PO 1054 Levetiracetam 500 MG 7:30 AM, & 4:30 PM 07/07 0730 AC 07/16 PO 0802 Multivitamins 1 TAB DAILY 07/06 1000 AC 07/16 Therapeutic PO 1052 Vancomycin HCl 1,000 MG Q24H 07/10 1400 AC 07/15 Sodium Chloride 250 ML IV 1412 Laboratory Tests 07/16/16 1120: Sodium Pending, Potassium Pending, Chloride Pending, Carbon Dioxide Pending, Anion Gap Pending, BUN Pending, Creatinine Pending, BUN/Creatinine Ratio Pending , CBC w Diff Pending, WBC Pending, RBC Pending, Hgb Pending, Hct Pending, MCV Pending, MCH Pending, RDW Pending, Plt Count Pending, MPV Pending, Gran % Pending, Lymphocytes % Pending, Monocytes % Pending, Eosinophils % Pending, Basophils % Pending, Absolute Granulocytes Pending, Absolute Lymphocytes Pending , Absolute Monocytes Pending, Absolute Eosinophils Pending, Absolute Basophils Pending, PUBS MCHC Pending 07/15/16 1650: CBC w Diff NO MAN DIFF REQ, RBC 3.19 L, MCV 89.6, MCH 29.8, RDW 15.1 H, MPV 7.1 L, Gran % 89.0 H, Lymphocytes % 3.2 L, Monocytes % 4.8, Eosinophils % 2.6 , Basophils % 0.4, Absolute Granulocytes 18.0 H, Absolute Lymphocytes 0.6 L, Absolute Monocytes 1.0 H, Absolute Eosinophils 0.5, Absolute Basophils 0.1, PUBS MCHC 33.3 Vital Signs Date Time Temp Pulse Resp B/P Pulse O2 O2 Flow FiO2 Ox Delivery Rate 07/16 626 97.9 85 18 126/60 92 Nasal Cannula 07/16 0000 Nasal 3.5L Cannula 07/15 2213 97.5 82 18 138/70 93 Nasal 4.0L Cannula 07/15 1600 96 Nasal 3.0L Cannula 07/15 1438 98.2 80 20 120/70 96 Vital Signs Date Time Temp Pulse Resp B/P Pulse O2 O2 Flow FiO2 Ox Delivery Rate 07/16 626 97.9 85 18 126/60 92 Nasal Cannula Intake & Output 07/16 1600 Intake Total Output Total Balance Number 1 Bowel Movements
[2016-07-16 12:08] LABS: GRANULOCYTE % 88.5 % (42.2-75.2)
--- NOTE | 2016-07-16 12:08 | PN- Pulmonary ---
Subjective HPI/Critical Care Issues: Patient is seen and examined at bedside. No acute events reported overnight. Remains afebrile and HDS. Resting comfortably in bed. Awake and alert. Review of Systems Constitutional: Reports: see HPI. Objective Current Medications: Current Medications Sig/Thalia Start time Last Medication Dose Route Stop Time Status Admin Acetaminophen 650 MG .STK-MED ONE 07/15 1711 DC PO 07/15 1712 Acetaminophen 650 MG Q6P PRN 07/09 1430 AC 07/10 [place] 1235 Acetaminophen 650 MG Q6P PRN 07/05 1600 AC 07/15 PO 1725 Albuterol Sulfate 3 ML Q4P PRN 07/11 1530 AC INH Albuterol Sulfate 3 ML BID 07/08 2200 AC 07/11 INH 1112 Atenolol 25 MG 07/06 1000 AC 07/15 PO 1012 Calcium 600 MG BID 07/05 2200 AC 07/16 PO 1053 Ceftazidime 1,000 MG Q12H 07/10 1400 AC 07/16 IV 0154 Duloxetine HCl 30 MG Q12 07/05 2200 AC 07/16 PO 1053 Ferrous Sulfate 325 MG DAILY 07/06 1000 AC 07/16 PO 1054 Lamotrigine 150 MG Q12 07/05 2200 AC 07/16 PO 1054 Levetiracetam 500 MG 7:30 AM, & 4:30 PM 07/07 0730 AC 07/16 PO 0802 Multivitamins 1 TAB DAILY 07/06 1000 AC 07/16 Therapeutic PO 1052 Vancomycin HCl 1,000 MG Q24H 07/10 1400 AC 07/15 Sodium Chloride 250 ML IV 1412 Vital Signs & I&O Last 24 Hrs of Vitals and I&O: Vital Signs Date Time Temp Pulse Resp B/P Pulse O2 O2 Flow FiO2 Ox Delivery Rate 07/16 08 Nasal 3.0L Cannula 07/16 0627 97.9 85 18 126/60 92 Nasal Cannula 07/16 0000 Nasal 3.5L Cannula 07/15 2213 97.5 82 18 138/70 93 Nasal 4.0L Cannula 07/15 1600 96 Nasal 3.0L Cannula 07/15 1438 98.2 80 20 120/70 96 Intake & Output 07/16 0800 07/16 0000 Intake Total 0 20 Output Total 550 400 Balance -550 -380 Intake, IV 0 Intake, Oral 20 Number 1 2 Bowel Movements Output, Urine 550 400 Laboratory Tests 07/16 07/15 07/15 1120 1650 0600 Chemistry Sodium Pending Cancelled Potassium Pending Cancelled Chloride Pending Cancelled Carbon Dioxide Pending Cancelled Anion Gap Pending Cancelled BUN Pending Cancelled Creatinine Pending Cancelled BUN/Creatinine Ratio Pending Cancelled Hematology CBC w Diff Pending NO MAN DIFF REQ Cancelled WBC (4.8 - 10.8 /CUMM) Pending 20.2 H Cancelled RBC (4.20 - 5.40 /CUMM) Pending 3.19 L Cancelled Hgb (12.0 - 16.0 G/DL) Pending 9.5 L Cancelled Hct (37 - 47 %) Pending 28.6 L Cancelled MCV (81.0 - 99.0 FL) Pending 89.6 Cancelled MCH (27.0 - 31.0 PG) Pending 29.8 Cancelled RDW (11.5 - 14.5 %) Pending 15.1 H Cancelled Plt Count (130 - 400 /CUMM) Pending 354 Cancelled MPV (7.4 - 10.4 FL) Pending 7.1 L Cancelled Gran % (42.2 - 75.2 %) Pending 89.0 H Lymphocytes % (20.5 - 51.1 %) Pending 3.2 L Monocytes % (1.7 - 9.3 %) Pending 4.8 Eosinophils % (0 - 5 %) Pending 2.6 Basophils % (0.0 - 2.0 %) Pending 0.4 Absolute Granulocytes (1.4 - 6.5 /CUMM) Pending 18.0 H Absolute Lymphocytes (1.2 - 3.4 /CUMM) Pending 0.6 L Absolute Monocytes (0.10 - 0.60 /CUMM) Pending 1.0 H Absolute Eosinophils (0.0 - 0.7 /CUMM) Pending 0.5 Absolute Basophils (0.0 - 0.2 /CUMM) Pending 0.1 PUBS MCHC (33.0 - 37.0 G/DL) Pending 33.3 Cancelled 07/15 07/15 0115 0037 Chemistry Sodium Cancelled Potassium Cancelled Chloride Cancelled Carbon Dioxide Cancelled Anion Gap Cancelled BUN Cancelled Creatinine Cancelled BUN/Creatinine Ratio Cancelled Hematology CBC w Diff MAN DIFF ORDERED WBC (4.8 - 10.8 /CUMM) 19.2 H RBC (4.20 - 5.40 /CUMM) 3.23 L Hgb (12.0 - 16.0 G/DL) 9.7 L Hct (37 - 47 %) 28.5 L MCV (81.0 - 99.0 FL) 88.4 MCH (27.0 - 31.0 PG) 29.9 RDW (11.5 - 14.5 %) 15.0 H Plt Count (130 - 400 /CUMM) 286 MPV (7.4 - 10.4 FL) 6.8 L Gran % (42.2 - 75.2 %) 90.1 H Lymphocytes % (20.5 - 51.1 %) 2.9 L Monocytes % (1.7 - 9.3 %) 3.6 Eosinophils % (0 - 5 %) 3.3 Basophils % (0.0 - 2.0 %) 0.1 Absolute Granulocytes (1.4 - 6.5 /CUMM) 17.3 H Segmented Neutrophils (42.2 - 75.2 %) 94 H Band Neutrophils (0.0 - 5.0 %) 2 Absolute Lymphocytes (1.2 - 3.4 /CUMM) 0.6 L Monocytes (1.7 - 9.3 %) 2 Absolute Monocytes (0.10 - 0.60 /CUMM) 0.7 H Eosinophils (0 - 5.0 %) 2 Absolute Eosinophils (0.0 - 0.7 /CUMM) 0.6 Absolute Basophils (0.0 - 0.2 /CUMM) 0 Platelet Estimate (ADEQUATE) ADEQUATE Polychromasia 1+ Poikilocytosis 1+ Ovalocytes 1+ PUBS MCHC (33.0 - 37.0 G/DL) 33.9 Other Body Source Fld Total RBCs Counted (%) 100 01/ 1800 Hematology CBC w Diff Cancelled WBC Cancelled RBC Cancelled Hgb Cancelled Hct Cancelled MCV Cancelled MCH Cancelled RDW Cancelled Plt Count Cancelled MPV Cancelled PUBS MCHC Cancelled Impression/Plan Impression/Plan Impression/Plan: Physical Exam General Appearance:Sleeping Other Physical Findings: Skin No Rashes, No Breakdown HEENT Atraumatic, PERRLA Neck Supple, No JVD Lymphatic Axillary nl, Cervical nl Cardiovascular Regular Rate, Normal S1, Normal S2 Lungs decreased breath sounds bilaterally, CTA Abdomen Normal Bowel Sounds, Soft, No Tenderness Neurological Normal Gait, Normal Speech, Strength at 5/5 X4 Ext, Normal Tone Extremities No Clubbing, No Cyanosis, No Edema Vascular Normal Pulses, Pulses Symmetrical SIGNIFICANT DATA Chest x-ray showed right-sided patchy opacity with improvement in the pleural effusion CT scan reviewed on July 08 it showed mucous plugging within the right lower lobe bronchus with collapse of bilateral lower lobes with multiple rib fractures with significant constipation noted Modified barium swallow showed no evidence suggestive tracheal aspiration Pleural fluid analysis reviewed pH was 7.39 Pleural fluid analysis showed significant bloody pleural effusion, white count 1980 with 78% polys with 10% lymphocytes and 12% monos histocytes. Pleural fluid analysis was more suggestive of probably a transudate however the LDH was elevated as patient appeared to have had bloody pleural effusion probably from trauma her protein was less than 2 amylase lipase was unremarkable LDH was elevated glucose was 124 Her previous echocardiogram showed normal ejection fraction no significant pulmonary hypertension CXr today 1. Persistent left pulmonary consolidation/pneumonia with grossly unchanged pleural effusion. 2. Cardiomegaly and pulmonary vascular congestion. No new findings in the chest compared to 07/14/2016. IMPRESSION This is a 89-year-old lady with significant dementia, hypertension, seizure disorder, previous iron deficiency anemia, depression, was admitted to the hospital after a significant choking episode following which she had had aggressive Heimlich maneuver in the intermediate now seems to be improving while on antibiotics as far as her respiratory status is concerned and her issues include * Bloody hemorrhagic pleural effusion most likely related to either a parapneumonic effusion which appears to be sympathetic type effusion with no evidence suggestive empyema versus significant trauma while she was having the Heimlich maneuver with multiple rib fractures in the right side. Pleural fluid analysis is most likely suggestive of a transudate as a protein was less than 2. LDH is probably high related to hemothorax. Unlikely that this is malignancy. * Bilateral pulmonary infiltrates related to aspiration pneumonitis. Patient did pass her swallowing evaluation however. * May have pulm contusion in the left side due to fractured ribs aswell which could be causing the infiltrate * Significant anemia most likely related to multiple factors. No sig hemothorax by Cxr from yesterday * Dementia with previous history of seizure and epilepsy with no evidence suggestive of significant epilepsy at this present time * Significant constipation before now with diarrhea RECOMMENDATION * 7 days of antibiotics * Check C diff if diarrhea * Await cytology from the pleural fluid * Will check cxr in am and if effusion is worse will get a pig tail if not conservative mgt * Watch hemoglobin * Continue her other medications * Feed while upright with aspiration precautions * Use venodyne boots Overall prognosis appears guarded pt stable
[2016-07-16 14:01] VITALS: BP 140/70
--- NOTE | 2016-07-16 14:02 | NUR ---
WOUND CARE: REEVAL OF COCCYX WOUND - HEALED TO CLOSURE - 100% EPITHELIALIZED - SKIN INTACT RECOMMENDATION: CONT WITH PREVENTATIVE SKIN CARE PER FACILTY GUIDELINE
[2016-07-16 23:04] VITALS: BP 144/70
--- NOTE | 2016-07-16 23:59 | NUR ---
ALERT AND ORIENTED TO PERSON. VITAL SIGNS STABLE. ON 3L O2 VIA NASAL CANNULA STAGE 2 ON COCCYX CLEANSED WITH NS AND COVERED WITH BARRIER CREAM NO DISCOMFORT NOTED. WILL CONTINUE TO MONITOR
[2016-07-17 06:00] VITALS: BP 132/76
--- NOTE | 2016-07-17 06:26 | PN- Housestaff ---
Subjective Follow-up For: Aspiration pneumonia Subjective: Patient is seen and examined at bedside. No acute events reported overnight. She is fully awake and alert. Sitting up and eating breakfast. Reponds to some questions but not all. Remains afebrile and HDS. Review of Systems Constitutional: Reports: see HPI. Objective Last 24 Hrs of Vital Signs/I&O Vital Signs Date Time Temp Pulse Resp B/P Pulse O2 O2 Flow FiO2 Ox Delivery Rate 07/17 599 97.7 79 20 132/76 95 Nasal Cannula 07/17 0000 Nasal 3.0L Cannula 07/16 2304 98.2 88 22 144/70 94 Nasal Cannula 07/16 1600 Nasal 3.0L Cannula 07/16 1401 98.2 97 20 140/70 93 Nasal 3.0L Cannula 07/16 08 Nasal 3.0L Cannula Intake & Output 07/17 0800 07/17 0000 07/16 1600 Intake Total 400 10 720 Output Total 450 450 400 Balance -50 -440 320 Intake, IV 400 Intake, Oral 10 720 Number 1 2 Bowel Movements Output, Urine 450 450 400 Physical Exam General Appearance: Alert, Oriented X3, Cooperative, No Acute Distress Other Physical Findings: Skin No Rashes, No Breakdown HEENT Atraumatic, PERRLA Neck Supple, No JVD Lymphatic Axillary nl, Cervical nl Cardiovascular Regular Rate, Normal S1, Normal S2 Lungs decreased breath sounds bilaterally, CTA Abdomen Normal Bowel Sounds, Soft, No Tenderness Neurological Normal Gait, Normal Speech, Strength at 5/5 X4 Ext, Normal Tone Extremities No Clubbing, No Cyanosis, No Edema Vascular Normal Pulses, Pulses Symmetrical Current Medications: Current Medications Sig/Thalia Start time Last Medication Dose Route Stop Time Status Admin Acetaminophen 650 MG Q6P PRN 07/09 1430 AC 07/10 [place] 1235 Acetaminophen 650 MG Q6P PRN 07/05 1600 AC 07/15 PO 1725 Albuterol Sulfate 3 ML Q4P PRN 07/11 1530 AC INH Albuterol Sulfate 3 ML BID 07/08 2200 AC 07/11 INH 1112 Atenolol 25 MG 07/06 1000 AC 07/15 PO 1012 Calcium 600 MG BID 07/05 2200 AC 07/16 PO 2315 Ceftazidime 1,000 MG Q12H 07/10 1400 AC 07/17 IV 0216 Duloxetine HCl 30 MG Q12 07/05 2200 AC 07/16 PO 2315 Ferrous Sulfate 325 MG DAILY 07/06 1000 AC 07/16 PO 1054 Lamotrigine 150 MG Q12 07/05 2200 AC 07/16 PO 2315 Levetiracetam 500 MG 7:30 AM, & 4:30 PM 07/07 0730 AC 07/16 PO 1730 Multivitamins 1 TAB DAILY 07/06 1000 AC 07/16 Therapeutic PO 1052 Patient Medication 1 ED ONE ONE 07/16 1430 DC Teaching ED 07/16 1431 Sodium Chloride 1,000 ML Q20H 07/16 1500 AC 07/16 IV 1734 Vancomycin HCl 1,000 MG Q24H 07/10 1400 AC 07/16 Sodium Chloride 250 ML IV 1323 Last 24 Hrs of Lab/Branden Results Last 24 Hrs of Labs/Mics: Laboratory Tests 07/16/16 1120: Anion Gap 8, Estimated GFR > 60, BUN/Creatinine Ratio 27.5 H, CBC w Diff NO MAN DIFF REQ, RBC 3.22 L, MCV 90.4, MCH 29.9, RDW 14.2, MPV 6.8 L, Gran % 88.5 H, Lymphocytes % 3.1 L, Monocytes % 5.6, Eosinophils % 2.4, Basophils % 0.4, Absolute Granulocytes 14.2 H, Absolute Lymphocytes 0.5 L, Absolute Monocytes 0.9 H, Absolute Eosinophils 0.4, Absolute Basophils 0.1, PUBS MCHC 33.1 Microbiology 07/16 0558 STOOL: Clostridium difficile Toxin A & B - COLB Assessment/Plan Assessment: 89-year-old female with a past medical history of hypertension, seizures, iron deficiency anemia and depression who presented after a choking spell, admitted for aspiraton pneumonia. Patient has been treated with Unasyn intially. However patient continued to spike fevers with a white count trending up. Antibiotics were broadened to IV vancomycin and Fortaz subsequently. Since then patient has been improving with no recurrent fevers. Also showing moderate improvement in mental status. Patient received 2U of pRBC on 07/14 with apprp response due to anemia most likely 2/2 ACBL from thoracentesis. Problem list: # Aspiration pneumonia secondary to choking spell on the food # Anemia # History of hypertension # History of depression # History of epilepsy/seizures # Persistent leukocytosis - improving Plans: * Continue IV vancomycin 1g IV daily and Fortaz 1g IV BID per ID rec - DAY 7 * May be discharged on no antibiotics as she completed 7 days of vanc and ceftaz * Check CBC daily, trend WBC & H/H * Follow cytology of pl fluid * Cont to appreciate ID/pulm recs * Continue with all her home medications - Passed MBS - puree and thin - DVT prophylaxis at all times with subcutaneous Lovenox - Mild pain pathway - no narcotics given AMS and per POA's request - Code: DNR/DNI Problem List: 1. Leukocytosis (leucocytosis) 2. Aspiration pneumonia Pain Ratin Pain Location: 0 Pain Goal: Remain pain free Pain Plan: Mild pain pathway Tomorrow's Labs & Rationales: CBC to monitor for leukocytosis
[2016-07-17 07:56] LABS: ABSOLUTE BASOPHIL COUNT 0 /CUMM (0.0-0.2); ABSOLUTE EOSINOPHIL COUNT 0.4 /CUMM (0.0-0.7); ABSOLUTE GRANULOCYTE CT 11.3 /CUMM (1.4-6.5); ABSOLUTE LYMPH COUNT 0.7 /CUMM (1.2-3.4); ABSOLUTE MONOCYTE COUNT 1.2 /CUMM (0.10-0.60); BASOPHIL % 0.2 % (0.0-2.0); EOSINOPHIL % 3.2 % (0-5); GRANULOCYTE % 82.8 % (42.2-75.2); MEAN CORPUSCULAR HGB 29.8 PG (27.0-31.0); MEAN CORPUSCULAR HGB CONC 33.4 G/DL (33.0-37.0); MEAN PLATELET VOLUME 6.7 FL (7.4-10.4); PLATELET COUNT 396 /CUMM (130-400); RBC DISTRIBUTION WIDTH 14.8 % (11.5-14.5); RED BLOOD CELL CT 3.15 /CUMM (4.20-5.40); WHITE BLOOD CELL COUNT 13.6 /CUMM (4.8-10.8)
--- NOTE | 2016-07-17 08:36 | PN- Pulmonary ---
Subjective HPI/Critical Care Issues: Patient is seen and examined at bedside. No acute events reported overnight. She is fully awake and alert. Sitting up. Reponds to some questions but not all. Remains afebrile and HDS. Review of Systems Constitutional: Reports: see HPI. Objective Current Medications: Current Medications Sig/Thalia Start time Last Medication Dose Route Stop Time Status Admin Acetaminophen 650 MG Q6P PRN 07/09 1430 AC 07/10 MO 1235 Acetaminophen 650 MG Q6P PRN 07/05 1600 AC 07/15 PO 1725 Albuterol Sulfate 3 ML Q4P PRN 07/11 1530 AC INH Albuterol Sulfate 3 ML BID 07/08 2200 AC 07/11 INH 1112 Atenolol 25 MG 07/06 1000 AC 07/15 PO 1012 Calcium 600 MG BID 07/05 2200 AC 07/16 PO 2315 Ceftazidime 1,000 MG Q12H 07/10 1400 AC 07/17 IV 0216 Duloxetine HCl 30 MG Q12 07/05 2200 AC 07/16 PO 2315 Ferrous Sulfate 325 MG DAILY 07/06 1000 AC 07/16 PO 1054 Lamotrigine 150 MG Q12 07/05 2200 AC 07/16 PO 2315 Levetiracetam 500 MG 7:30 AM, & 4:30 PM 07/07 0730 AC 07/16 PO 1730 Multivitamins 1 TAB DAILY 07/06 1000 AC 07/16 Therapeutic PO 1052 Patient Medication 1 ED ONE ONE 07/16 1430 DC Teaching ED 07/16 1431 Sodium Chloride 1,000 ML Q20H 07/16 1500 AC 07/16 IV 1734 Vancomycin HCl 1,000 MG Q24H 07/10 1400 AC 07/16 Sodium Chloride 250 ML IV 1323 Vital Signs & I&O Last 24 Hrs of Vitals and I&O: Vital Signs Date Time Temp Pulse Resp B/P Pulse O2 O2 Flow FiO2 Ox Delivery Rate 07/17 599 97.7 79 20 132/76 95 Nasal Cannula 07/17 0000 Nasal 3.0L Cannula 07/16 2304 98.2 88 22 144/70 94 Nasal Cannula 07/16 1600 Nasal 3.0L Cannula 07/16 1401 98.2 97 20 140/70 93 Nasal 3.0L Cannula Intake & Output 07/17 1600 07/17 0800 07/17 0000 Intake Total 400 10 Output Total 450 450 Balance -50 -440 Intake, IV 400 Intake, Oral 10 Number 1 Bowel Movements Output, Urine 450 450 Impression/Plan Impression/Plan Impression/Plan: Physical Exam General Appearance:Sleeping Other Physical Findings: Skin No Rashes, No Breakdown HEENT Atraumatic, PERRLA Neck Supple, No JVD Lymphatic Axillary nl, Cervical nl Cardiovascular Regular Rate, Normal S1, Normal S2 Lungs decreased breath sounds bilaterally, CTA Abdomen Normal Bowel Sounds, Soft, No Tenderness Neurological Normal Gait, Normal Speech, Strength at 5/5 X4 Ext, Normal Tone Extremities No Clubbing, No Cyanosis, No Edema Vascular Normal Pulses, Pulses Symmetrical SIGNIFICANT DATA Chest x-ray showed right-sided patchy opacity with improvement in the pleural effusion CT scan reviewed on July 08 it showed mucous plugging within the right lower lobe bronchus with collapse of bilateral lower lobes with multiple rib fractures with significant constipation noted Modified barium swallow showed no evidence suggestive tracheal aspiration Pleural fluid analysis reviewed pH was 7.39 Pleural fluid analysis showed significant bloody pleural effusion, white count 1980 with 78% polys with 10% lymphocytes and 12% monos histocytes. Pleural fluid analysis was more suggestive of probably a transudate however the LDH was elevated as patient appeared to have had bloody pleural effusion probably from trauma her protein was less than 2 amylase lipase was unremarkable LDH was elevated glucose was 124 Her previous echocardiogram showed normal ejection fraction no significant pulmonary hypertension CXr 1. Persistent left pulmonary consolidation/pneumonia with grossly unchanged pleural effusion. 2. Cardiomegaly and pulmonary vascular congestion. No new findings in the chest compared to 07/14/2016. IMPRESSION This is a 89-year-old lady with significant dementia, hypertension, seizure disorder, previous iron deficiency anemia, depression, was admitted to the hospital after a significant choking episode following which she had had aggressive Heimlich maneuver in the alf now seems to be improving while on antibiotics as far as her respiratory status is concerned and her issues include * Bloody hemorrhagic pleural effusion most likely related to either a parapneumonic effusion which appears to be sympathetic effusion with no evidence suggestive empyema or significant trauma while she was having the Heimlich maneuver with multiple rib fractures on both sides. Pleural fluid analysis is most likely suggestive of a transudate as a protein was less than 2. LDH is probably high related to hemothorax. Unlikely that this is malignancy. Cytology is negative for any malignancy * Bilateral pulmonary infiltrates related to aspiration pneumonitis. Patient did pass her swallowing evaluation * May have pulm contusion in the left side due to fractured ribs aswell which could be causing the infiltrate * Significant anemia most likely related to multiple factors. No sig hemothorax by Cxr from yesterday * Dementia with previous history of seizure and epilepsy with no evidence suggestive of significant epilepsy at this present time * Significant constipation before now with diarrhea RECOMMENDATION * 7 days of antibiotics * Check C diff if diarrhea * cxr * Watch hemoglobin * Continue her other medications * Feed while upright with aspiration precautions * Use venodyne boots If x-ray is stable she can be discharge Overall prognosis appears guarded pt stable
[2016-07-17] MEDS ORDERED: KEPPRA500 M1 PO (08:44)
[2016-07-17 13:32] VITALS: BP 120/80
--- NOTE | 2016-07-17 15:05 | PN- Infect Dx ---
Subjective Subjective: Afebrile. She does not report any complaints but her history is not reliable. Objective Last 24 Hrs of Vital Signs/I&O Vital Signs Date Time Temp Pulse Resp B/P Pulse O2 O2 Flow FiO2 Ox Delivery Rate 07/17 1332 97.7 89 18 120/80 92 Nasal 3.5L Cannula 07/17 0913 76 132/76 07/17 0800 Nasal 3.0L Cannula 07/17 0600 97.7 79 20 132/76 95 Nasal Cannula 07/17 0000 Nasal 3.0L Cannula 07/16 2304 98.2 88 22 144/70 94 Nasal Cannula 07/16 1600 Nasal 3.0L Cannula Intake & Output 07/17 1600 07/17 0800 07/17 0000 Intake Total 1120 400 10 Output Total 400 450 450 Balance 720 -50 -440 Intake, IV 400 400 Intake, Oral 720 10 Number 2 1 Bowel Movements Output, Urine 400 450 450 Physical Exam Other Physical Findings: She is lethargic but responsive to pain Lungs are clear with decreased breath sounds bilaterally Heart regular rhythm with no murmur Extremities no cyanosis, clubbing or edema Calle catheter remains in place Results Last 24 Hours of Lab Results: Laboratory Tests 07/17 0550 Chemistry Sodium (137 - 145 mmol/L) 133 L Potassium (3.5 - 5.1 mmol/L) 4.1 Chloride (98 - 107 mmol/L) 96 L Carbon Dioxide (22 - 30 mmol/L) 28 Anion Gap (5 - 16) 9 BUN (7 - 17 mg/dL) 9 Creatinine (0.5 - 1.0 mg/dL) 0.4 L Estimated GFR (>60 ml/min) > 60 BUN/Creatinine Ratio (7 - 25 %) 22.5 Hematology CBC w Diff NO MAN DIFF REQ WBC (4.8 - 10.8 /CUMM) 13.6 H RBC (4.20 - 5.40 /CUMM) 3.15 L Hgb (12.0 - 16.0 G/DL) 9.4 L Hct (37 - 47 %) 28.0 L MCV (81.0 - 99.0 FL) 89.0 MCH (27.0 - 31.0 PG) 29.8 RDW (11.5 - 14.5 %) 14.8 H Plt Count (130 - 400 /CUMM) 396 MPV (7.4 - 10.4 FL) 6.7 L Gran % (42.2 - 75.2 %) 82.8 H Lymphocytes % (20.5 - 51.1 %) 5.1 L Monocytes % (1.7 - 9.3 %) 8.7 Eosinophils % (0 - 5 %) 3.2 Basophils % (0.0 - 2.0 %) 0.2 Absolute Granulocytes (1.4 - 6.5 /CUMM) 11.3 H Absolute Lymphocytes (1.2 - 3.4 /CUMM) 0.7 L Absolute Monocytes (0.10 - 0.60 /CUMM) 1.2 H Absolute Eosinophils (0.0 - 0.7 /CUMM) 0.4 Absolute Basophils (0.0 - 0.2 /CUMM) 0 PUBS MCHC (33.0 - 37.0 G/DL) 33.4 Last 24 Hours of Branden Results: No recent cultures Recent Imaging Studies: Chest x-ray July 16 persistent left mid to lower lung consolidation, unchanged from previous film Assessment/Plan Impression: Overall improved with temperatures remaining normal and white blood cell count continuing to decrease now Day 7 of empiric treatment with Vancomycin and Ceftazidime for a presumably resistant pneumonia which did not respond to 5 days of Unasyn. The hemorrhagic right pleural effusion is felt possibly secondary to trauma, with cytology negative. Suggestion: 1. Would remove Calle catheter prior to discharge and restart straight cath protocol if necessary 2. Discontinue Vancomycin and Ceftazidime and follow off antibiotics
--- NOTE | 2016-07-17 16:32 | RADIOLOGY REPORT ---
EXAMINATION: XR PORTABLE CHEST CLINICAL INFORMATION: Pneumonia. COMPARISON: 07/16/2016 and additional prior studies dating back to 10/12/2007 TECHNIQUE: Portable view of the chest was obtained. FINDINGS: No significant interval change when compared with the most recent prior study. Consolidation of the left mid to lower lung with probable at least small associated pleural effusion. Trace right pleural effusion. Diffusely coarsened interstitial lung markings bilaterally, similar to prior studies but exacerbated on the current study due to the hypoventilation. Stable mild cardiomegaly. Stable pulmonary vascular congestion. Atherosclerosis thoracic aorta. Osteoporosis and multiple rib fractures better seen on CT from 07/08/2016. IMPRESSION: Overall unchanged examination demonstrating left lung consolidation with associated pleural effusion. Stable cardiomegaly and pulmonary vascular congestion.
--- NOTE | 2016-07-17 18:13 | PN- Att Addend ---
Attending Addendum Attending Brief Note Patient in bed not too talkative. Patient is a febrile. White count slowly coming down. Check with infectious diseases what the next step is and when the patient will be ready to go to the long term and went to either switch to by mouth antibiotics were finished antibiotic therapy Current Medications Sig/Thalia Start time Last Medication Dose Route Stop Time Status Admin Acetaminophen 650 MG Q6P PRN 07/09 1430 AC 07/10 NM 1235 Acetaminophen 650 MG Q6P PRN 07/05 1600 AC 07/15 PO 1725 Albuterol Sulfate 3 ML Q4P PRN 07/11 1530 AC INH Albuterol Sulfate 3 ML BID 07/08 2200 AC 07/11 INH 1112 Atenolol 25 MG 07/06 1000 AC 07/17 PO 0913 Calcium 600 MG BID 07/05 2200 AC 07/17 PO 0913 Ceftazidime 1,000 MG Q12H 07/10 1400 AC 07/17 IV 1328 Duloxetine HCl 30 MG Q12 07/05 2200 AC 07/17 PO 0912 Ferrous Sulfate 325 MG DAILY 07/06 1000 AC 07/17 PO 0913 Lamotrigine 150 MG Q12 07/05 2200 AC 07/17 PO 0912 Levetiracetam 500 MG 7:30 AM, & 4:30 PM 07/07 0730 AC 07/17 PO 1631 Multivitamins 1 TAB DAILY 07/06 1000 AC 07/17 Therapeutic PO 0913 Sodium Chloride 1,000 ML Q20H 07/16 1500 AC 07/17 IV 0912 Vancomycin HCl 1,000 MG Q24H 07/10 1400 AC 07/17 Sodium Chloride 250 ML IV 1327 Laboratory Tests 07/17/16 0550: Anion Gap 9, Estimated GFR > 60, BUN/Creatinine Ratio 22.5, CBC w Diff NO MAN DIFF REQ, RBC 3.15 L, MCV 89.0, MCH 29.8, RDW 14.8 H, MPV 6.7 L, Gran % 82.8 H, Lymphocytes % 5.1 L, Monocytes % 8.7, Eosinophils % 3.2, Basophils % 0.2, Absolute Granulocytes 11.3 H, Absolute Lymphocytes 0.7 L, Absolute Monocytes 1.2 H, Absolute Eosinophils 0.4, Absolute Basophils 0, PUBS MCHC 33.4 Microbiology Date/Time Procedure - Status Source Growth 07/16 2327 Clostridium difficile Toxin A & B - CAN STOOL Cancelled: SPECIMEN NOT RECEIVED IN LABORATORY Vital Signs Date Time Temp Pulse Resp B/P Pulse O2 O2 Flow FiO2 Ox Delivery Rate 07/17 1600 94 Nasal 3.0L Cannula 07/17 1332 97.7 89 18 120/80 92 Nasal 3.5L Cannula Intake & Output 07/17 1600 Intake Total 1120 Output Total 400 Balance 720 Intake, IV 400 Intake, Oral 720 Number 2 Bowel Movements Output, Urine 400 Cytology of the pleural fluid showed no malignant cells
[2016-07-17 22:18] VITALS: BP 130/78
[2016-07-18 06:00] VITALS: BP 138/80
--- NOTE | 2016-07-18 07:26 | PN- Housestaff ---
Subjective Follow-up For: Aspiration/Healthcare associated pneumonia Subjective: Patien seen and examined at bedside. No acute events reported overnight. She is fully awake and alert. Reponds to some questions but not all. Denies any pain or dyspnea. Remains afebrile and HDS. WBC trending down Review of Systems Constitutional: Reports: see HPI. Objective Last 24 Hrs of Vital Signs/I&O Vital Signs Date Time Temp Pulse Resp B/P Pulse O2 O2 Flow FiO2 Ox Delivery Rate 07/18 06 97.3 91 18 138/80 93 Nasal 3.5L Cannula 07/18 0000 94 Nasal 3.0L Cannula 07/17 2218 98.7 86 22 130/78 94 Nasal 3.5L Cannula 07/17 1600 94 Nasal 3.0L Cannula 07/17 1332 97.7 89 18 120/80 92 Nasal 3.5L Cannula 07/17 0913 76 132/76 Intake & Output 07/18 1600 07/18 0800 07/18 0000 Intake Total 400 Output Total 800 750 Balance -400 -750 Intake, IV 400 Number 1 1 Bowel Movements Output, Urine 800 750 Physical Exam General Appearance: Alert, Oriented X3, Cooperative Other Physical Findings: Skin No Rashes, No Breakdown HEENT Atraumatic, PERRLA Neck Supple, No JVD Lymphatic Axillary nl, Cervical nl Cardiovascular Regular Rate, Normal S1, Normal S2 Lungs decreased breath sounds bilaterally, CTA Abdomen Normal Bowel Sounds, Soft, No Tenderness Neurological Normal Gait, Normal Speech, Strength at 5/5 X4 Ext, Normal Tone Extremities No Clubbing, No Cyanosis, No Edema Vascular Normal Pulses, Pulses Symmetrical Current Medications: Current Medications Sig/Thalia Start time Last Medication Dose Route Stop Time Status Admin Acetaminophen 1,000 MG .STK-MED ONE 07/17 2144 DC IV 07/17 214 Acetaminophen 650 MG Q6P PRN 07/09 1430 AC 07/10 [place] 1235 Acetaminophen 650 MG Q6P PRN 07/05 1600 AC 07/15 PO 1725 Albuterol Sulfate 3 ML Q4P PRN 07/11 1530 AC INH Albuterol Sulfate 3 ML BID 07/08 220 AC 07/11 INH 1112 Atenolol 25 MG 07/06 1000 AC 07/17 PO 0913 Calcium 600 MG BID 07/05 2200 AC 07/17 PO 2200 Ceftazidime 1,000 MG Q12H 07/10 1400 AC 07/18 IV 0210 Duloxetine HCl 30 MG Q12 07/05 2200 AC 07/17 PO 2200 Ferrous Sulfate 325 MG DAILY 07/06 1000 AC 07/17 PO 09 Lamotrigine 150 MG Q12 07/05 2200 AC 07/17 PO 2200 Levetiracetam 500 MG 7:30 AM, & 4:30 PM 07/07 0730 AC 07/17 PO 1631 Multivitamins 1 TAB DAILY 07/06 1000 AC 07/17 Therapeutic PO 0913 Sodium Chloride 1,000 ML Q20H 07/16 1500 AC 07/18 IV 0557 Vancomycin HCl 1,000 MG Q24H 07/10 1400 AC 07/17 Sodium Chloride 250 ML IV 1327 Last 24 Hrs of Lab/Branden Results Last 24 Hrs of Labs/Mics: Laboratory Tests 07/18/16 0620: Anion Gap 6, Estimated GFR > 60, BUN/Creatinine Ratio 17.5, CBC w Diff Pending, WBC Pending, RBC Pending, Hgb Pending, Hct Pending, MCV Pending, MCH Pending, RDW Pending, Plt Count Pending, MPV Pending, PUBS MCHC Pending Assessment/Plan Assessment: 89-year-old female with a past medical history of hypertension, seizures, iron deficiency anemia and depression who presented after a choking spell, admitted for aspiraton pneumonia. Patient has been treated with Unasyn intially. However patient continued to spike fevers with a white count trending up. Antibiotics were broadened to IV vancomycin and Fortaz subsequently. Since then patient has been improving with no recurrent fevers. Also showing moderate improvement in mental status. Patient received 2U of pRBC on 07/14 with apprp response due to anemia most likely 2/2 ACBL from thoracentesis. Currently afebrile and HDS. WBC trending down. Problem list: # Aspiration pneumonia secondary to choking spell on the food # Anemia # History of hypertension # History of depression # History of epilepsy/seizures # Persistent leukocytosis - improving Plans: * Stable for discharge today on no antibiotics as she completed 7 days of vanc and ceftaz * Check CBC daily, trend WBC & H/H * Follow cytology of pl fluid - outpatient * Cont to appreciate ID/pulm recs * Continue with all her home medications - Passed MBS - puree and thin - DVT prophylaxis at all times with subcutaneous Lovenox - Mild pain pathway - no narcotics given AMS and per POA's request - Code: DNR/DNI Problem List: 1. Aspiration pneumonia 2. Leukocytosis (leucocytosis) Pain Ratin Pain Location: 0 Pain Goal: Remain pain free Pain Plan: Mild pain pathway Tomorrow's Labs & Rationales: None - discharge Consulting Request: Consulting Specialty: Pulmonary Disease
[2016-07-18 08:13] LABS: ABSOLUTE BASOPHIL COUNT 0 /CUMM (0.0-0.2); ABSOLUTE EOSINOPHIL COUNT 0.4 /CUMM (0.0-0.7); ABSOLUTE GRANULOCYTE CT 11.1 /CUMM (1.4-6.5); ABSOLUTE LYMPH COUNT 0.6 /CUMM (1.2-3.4); ABSOLUTE MONOCYTE COUNT 1.2 /CUMM (0.10-0.60); BASOPHIL % 0.1 % (0.0-2.0); EOSINOPHIL % 2.6 % (0-5); HEMATOCRIT 28.7 % (37-47); MEAN CORPUSCULAR HGB 29.8 PG (27.0-31.0); MEAN CORPUSCULAR HGB CONC 32.8 G/DL (33.0-37.0); MEAN CORPUSCULAR VOLUME 90.7 FL (81.0-99.0); MEAN PLATELET VOLUME 6.6 FL (7.4-10.4); RBC DISTRIBUTION WIDTH 14.4 % (11.5-14.5); RED BLOOD CELL CT 3.17 /CUMM (4.20-5.40); WHITE BLOOD CELL COUNT 13.3 /CUMM (4.8-10.8)
--- NOTE | 2016-07-18 08:41 | PN- Att Addend ---
Attending Addendum Attending Brief Note Intake & Output 07/18 1600 07/18 0800 07/18 0000 Intake Total 400 Output Total 800 750 Balance -400 -750 Intake, IV 400 Number 1 1 Bowel Movements Output, Urine 800 750 Current Medications Sig/Thalia Start time Last Medication Dose Route Stop Time Status Admin Acetaminophen 1,000 MG .STK-MED ONE 07/174 DC IV 07/17 2145 Acetaminophen 650 MG Q6P PRN 07/09 1430 AC 07/10 CT 1235 Acetaminophen 650 MG Q6P PRN 07/05 1600 AC 07/15 PO 1725 Albuterol Sulfate 3 ML Q4P PRN 07/11 1530 AC INH Albuterol Sulfate 3 ML BID 07/08 2200 AC 07/11 INH 1112 Atenolol 25 MG 07/06 1000 AC 07/17 PO 0913 Calcium 600 MG BID 07/05 2200 AC 07/18 PO 0836 Ceftazidime 1,000 MG Q12H 07/10 1400 DC 07/18 IV 0210 Duloxetine HCl 30 MG Q12 07/05 2200 AC 07/18 PO 0835 Ferrous Sulfate 325 MG DAILY 07/06 1000 AC 07/18 PO 0836 Lamotrigine 150 MG Q12 07/05 2200 AC 07/18 PO 0836 Levetiracetam 500 MG 7:30 AM, & 4:30 PM 07/07 07 AC 07/18 PO 0835 Multivitamins 1 TAB DAILY 07/06 1000 AC 07/18 Therapeutic PO 0836 Sodium Chloride 1,000 ML Q20H 07/16 1500 AC 07/18 IV 0557 Vancomycin HCl 1,000 MG Q24H 07/10 1400 DC 07/17 Sodium Chloride 250 ML IV 1327 Laboratory Tests 07/18 06 Chemistry Sodium (137 - 145 mmol/L) 134 L Potassium (3.5 - 5.1 mmol/L) 4.2 Chloride (98 - 107 mmol/L) 97 L Carbon Dioxide (22 - 30 mmol/L) 30 Anion Gap (5 - 16) 6 BUN (7 - 17 mg/dL) 7 Creatinine (0.5 - 1.0 mg/dL) 0.4 L Estimated GFR (>60 ml/min) > 60 BUN/Creatinine Ratio (7 - 25 %) 17.5 Hematology CBC w Diff Pending WBC Pending RBC Pending Hgb Pending Hct Pending MCV Pending MCH Pending RDW Pending Plt Count Pending MPV Pending Gran % Pending Lymphocytes % Pending Monocytes % Pending Eosinophils % Pending Basophils % Pending Absolute Granulocytes Pending Absolute Lymphocytes Pending Absolute Monocytes Pending Absolute Eosinophils Pending Absolute Basophils Pending PUBS MCHC Pending Vital Signs Date Time Temp Pulse Resp B/P Pulse O2 O2 Flow FiO2 Ox Delivery Rate 07/18 599 97.3 91 18 138/80 93 Nasal 3.5L Cannula 07/18 0000 94 Nasal 3.0L Cannula 07/17 2218 98.7 86 22 130/78 94 Nasal 3.5L Cannula 07/17 1600 94 Nasal 3.0L Cannula 07/17 1332 97.7 89 18 120/80 92 Nasal 3.5L Cannula 07/17 0913 76 132/76 Intake & Output 07/18 1600 07/18 0800 07/18 0000 Intake Total 400 Output Total 800 750 Balance -400 -750 Intake, IV 400 Number 1 1 Bowel Movements Output, Urine 800 750 Patient is awake but not verbal. No distress vital signs are stable S1-S2 is normal Lungs shows the crackles on the left base. Abdomen soft nontender bowel sounds are present Assessment aspiration pneumonia Plan is continue oxygen patient can be discharged to intermediate facility. With oxygen
[2016-07-18 09:07] LABS: GRANULOCYTE % 83.4 % (42.2-75.2); PLATELET COUNT 445 /CUMM (130-400)
[2016-07-18 11:25] VITALS: BP 138/80
== END 2016-07-18 11:45 | DRG 177 ==
LOC: ERH 13:03 → 2NA 15:32 → ERHI 15:32 → 2NA 17:45
PROVIDERS: Emergency Medicine; Internal Medicine Nephrology; Radiology Diagnostic Radiology; Student in an Organized Health Care Education/Training Program; ADMIT Internal Medicine
PROC: 0W993ZX Drainage of Right Pleural Cavity, Percutaneous Approach, Diagnostic (ICD-10-PCS; principal; 2016-07-10)
DX: J69.0 Pneumonitis due to inhalation of food and vomit (principal); J96.90 Respiratory failure, unspecified, unspecified whether with hypoxia or hypercapnia; L89.152 Pressure ulcer of sacral region, stage 2; J90 Pleural effusion, not elsewhere classified; S27.321A Contusion of lung, unilateral, initial encounter; S22.49XA Multiple fractures of ribs, unspecified side, initial encounter for closed fracture; T17.228A Food in pharynx causing other injury, initial encounter; R19.7 Diarrhea, unspecified; D64.9 Anemia, unspecified; F32.9 Major depressive disorder, single episode, unspecified; I10 Essential (primary) hypertension; R56.9 Unspecified convulsions; D50.9 Iron deficiency anemia, unspecified
CPT/HCPCS: 2NASP; 87075; 36415; 74177; 74230; 81001; 82436; 86920; 87040; 87070; 87086; 88305; 90662; 90732; 93005; 93010; 96374; 97001-GP; 97110-GO; 97112-GO; 97162-GP; 97530-GO; 99291; J0131; J0713; J1650; J3370; J3490; J7040; J7060; P9016

== ENCOUNTER 2016-07-18 13:12 | Emergency (ER) | payer OTHER, MEDICARE ==
[~2016-07-18] VITALS: Ht 167.6 cm; Wt 59.0 kg
--- NOTE | 2016-07-18 13:40 | ED UPPER/LOWER EXTREMITY COMPL ---
History of Present Illness General Chief Complaint: General Adult Stated Complaint: L HIP PAIN Source: EMS Exam Limitations: no limitations Vital Signs & Intake/Output Vital Signs & Intake/Output Vital Signs Date Time Temp Pulse Resp B/P Pulse O2 O2 Flow FiO2 Ox Delivery Rate 07/18 1459 99.0 84 18 146/79 96 Nasal 2.0L Cannula 07/18 1408 99.0 78 18 161/76 94 Nasal 2.0L Cannula 07/18 1354 92 Nasal 2.0L Cannula 07/18 1315 98.5 88 16 154/76 92 Nasal 2.0L Cannula Allergies Coded Allergies: Opioids - Morphine Analogues (N/V, MADE JAMI 10/28/15) Reconcile Medications Acetaminophen (Tylenol Extra Strength) 500 MG TABLET 2 TAB PO TID PAIN CONTROL (Reported) Atenolol 25 MG TAB 1 TAB PO Wednesday BP/HEART (Reported) Calcium Carbonate/Vitamin D3 (Os-Carrillo 500+D3 Caplet) 1 EACH TABLET 1 TAB PO DAILY VITAMIN SUPPORT (Reported) Dextran 70/Hypromellose (Artificial Tears) 1 EACH DROPERETTE 1 DROP OP Q4H PRN DRY EYES - BOTH EYES (Reported) Duloxetine HCl 30 MG CAPSULE.DR 1 CAP PO Q12 DEPRESSION (Reported) Ferrous Sulfate 325 MG TABLET 1 TAB PO DAILY VITAMIN SUPPORT (Reported) Lamotrigine 150 MG TABLET 1 TAB PO Q12 SEIZURES (Reported) Levetiracetam (Keppra) 500 MG TABLET 1 TAB PO BID SEIZURE (Reported) PER PATIENT'S POA Multivitamin (One Daily Multivitamin) 1 TAB TAB 1 TAB PO DAILY SUPPLEMENT ( Reported) Triage Nurses Notes Reviewed? yes HPI: This patient is an 89-year-old female with a past medical history including hypertension, dementia, and left hip surgery status post removal of hardware who presented to the emergency department today brought in by ambulance from [facility] after being discharged from [facility] for aspiration pneumonia approximately one hour prior to arrival. Per EMS, they were transferring this patient from the ambulance stretcher to her bed at [facility] and they were unable to do so. Reported that this patient was in too much pain. Report was that this patient's left hip seemed more externally rotated than normal and the staff at [facility] also noticed that the leg seemed shortened. The patient's family also told EMS that her hip looked worse than before. The patient is a poor historian and unable to answer questions at this time. When asked if her hip hurt when I pressed down, she was able to answer yes. (LISY ROSE PA-C) Past History Medical History Any Pertinent Medical History? 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 status post thyroidectomy Psychosocial History Who do you live with Family Services at Home Nursing What is your primary language Malagasy Family History Family History, If Any: MOTHER Relation not specified for: Essential hypertension Hx Contributory? No (LISY ROSE PA-C) Review of Systems Review of Systems Constitutional: Reports: no symptoms. Musculoskeletal: Reports: see HPI. Comments Unable to obtain full review of systems due to this patient's current mental status. (LISY ROSE PA-C) Physical Exam Physical Exam General Appearance: alert, awake, mild distress, thin Comments: Well-developed well-nourished person in mild distress HEENT: Normal EENT exam, head normocephalic/atraumatic with no bony deformity/ step-off the skull, moist mucous membranes PERRLA bilaterally Nose is atraumatic. Neck: Supple with no lymphadenopathy Back: Normal inspection Cardiovascular: Regular rate and rhythm with no murmurs, rubs, or gallops Respiratory: Chest nontender. No respiratory distress. Abdomen: Soft and nondistended. Normoactive bowel sounds Left lower extremity: Knee flexed at 90 and hip externally rotated. No effusions or overlying erythema or ecchymosis to the joint spaces. No bony or muscular deformities noted. Tenderness to palpation of the anterior aspect of the hip. Range of motion at the hip limited due to pain. Dorsalis pedis, posterior tibialis, and popliteal pulses 2+ and strong Neuro: Alert, cranial nerves II through XII grossly intact. Skin: No appreciable rash on exposed skin, skin is warm and dry. (MILTON WHITING,LISY) Progress Differential Diagnosis: arterial insufficiency, cellulitis, compartment syndrome , contusion, dislocation, DVT, fracture, gout, septic arthritis, sprain, tendon injury Plan of Care: Orders Procedure Date/time Status LACTIC ACID 07/18 1638 Active LACTIC ACID 07/18 1338 Complete COMPREHENSIVE METABOLIC PANEL 07/18 1338 Complete CBC WITHOUT DIFFERENTIAL 07/18 1337 Complete Laboratory Tests 07/18/16 1410: Anion Gap 7, Estimated GFR > 60, BUN/Creatinine Ratio 17.5, Glucose 90, Lactic Acid 0.8, Calcium 8.2 L, Total Bilirubin 0.5, AST 15, ALT 34, Alkaline Phosphatase 121, Total Protein 4.2 L, Albumin 2.2 L, Globulin 2.0, Albumin/ Globulin Ratio 1.1, CBC w Diff NO MAN DIFF REQ, RBC 3.23 L, MCV 90.3, MCH 29.5, RDW 14.5, MPV 6.4 L, Gran % 84.7 H, Lymphocytes % 4.7 L, Monocytes % 8.2, Eosinophils % 2.1, Basophils % 0.3, Absolute Granulocytes 11.5 H, Absolute Lymphocytes 0.6 L, Absolute Monocytes 1.1 H, Absolute Eosinophils 0.3, Absolute Basophils 0, PUBS MCHC 32.7 L Diagnostic Imaging: Viewed by Me: CT Scan. Discussed w/RAD: CT Scan. Radiology Impression: PATIENT: MAGO KHAN PRESENT AGE: 89 PATIENT ACCOUNT NO: [id number] : [birth year] LOCATION: [facility] ([place]) ORDERING PHYSICIAN: LISY ROSE PA-C SERVICE DATE: 07/18/16 EXAM TYPE: CAT - CT LOWER EXT WO IV CONTRAST EXAMINATION: CT LOWER EXTREMITY WITHOUT CONTRAST, LEFT CLINICAL INFORMATION: Left hip pain, evaluate for fracture. COMPARISON: Radiographs 03/01/2016. CT 07/26/2015. TECHNIQUE: A noncontrast CT of the left hip is performed with sagittal and coronal reformats. DLP: 2153 mGy-cm. FINDINGS : Evidence of a total hip arthroplasty which has been removed with chronic- appearing bone resorption and erosions of the proximal femur medially and the distal aspect of the former femoral stem laterally, as well as the acetabulum with a joint effusion and numerous small intra-articular fragments. Cannot exclude the possibility of an active infection. No acute fracture is demonstrated. IMPRESSION: No acute fracture is demonstrated. No significant change in the appearance of the left hip and proximal femur status post hardware removal from presumed infection. Cannot exclude the presence of active infection in the appropriate clinical setting. DICTATED BY: DEMARCO CASTANEDA MD DATE/ TIME DICTATED:07/18/161416 [employer]ICATING SHOP HELPER:SHEILA DATE/TIME TRANSCRIBED: 07/18/161416 CONFIDENTIAL, DO NOT COPY WITHOUT APPROPRIATE AUTHORIZATION. < Electronically signed in Other Vendor System> SIGNED BY: DEMARCO CASTANEDA MD 07/18/16 1532 Comments: 07/18/2016 3:40:18 PM: CT scan of the hip is unchanged from prior imaging. No acute abnormalities. This patient's white blood cell count is 13.5 and it was 13.3 on discharge from the hospital this morning. When she was originally admitted to the hospital at the end of June 2016, her white count was 38.7; this is markedly improved today from her original white count. The patient has been laying on the stretcher comfortably for the duration of this hospital stay. She is in no acute distress and nontoxic appearing. Discussed this patient with Dr. Treviño who is in agreement with the plan of this patient can be safely discharged back to [facility] for rehabilitation as there have been no acute changes in her status and she was discharged from the hospital this morning. (LISY ROSE PA-C) Departure Departure Disposition: ACUTE REHAB FACILITY Condition: Stable Clinical Impression Primary Impression: Left hip pain Referrals: WICHO TAYLOR MD (PCP/Family) Additional Instructions: Continue to take all previously prescribed medications as directed. Tylenol every 6 hours for pain. Return for any worsening symptoms or concerns. Departure Forms: Customer Survey General Discharge Information (LISY ROSE PA-C) PA/RUSTIC TERRAZZO SETTER Co-Sign Statement Statement: ED Attending supervision documentation- [] I saw and evaluated the patient. I have also reviewed all the pertinent lab results and diagnostic results. I agree with the findings and the plan of care as documented in the PA's/RUSTIC TERRAZZO SETTER's documentation. [X] I have reviewed the ED Record and agree with the PA's/RUSTIC TERRAZZO SETTER's documentation. [] Additions or exceptions (if any) to the PAs/RUSTIC TERRAZZO SETTER's note and plan are summarized below: [] (SEBASTIÁN IRVING,VIMAL)
[2016-07-18 14:23] LABS: ABSOLUTE BASOPHIL COUNT 0 /CUMM (0.0-0.2); ABSOLUTE EOSINOPHIL COUNT 0.3 /CUMM (0.0-0.7); ABSOLUTE GRANULOCYTE CT 11.5 /CUMM (1.4-6.5); ABSOLUTE LYMPH COUNT 0.6 /CUMM (1.2-3.4); ABSOLUTE MONOCYTE COUNT 1.1 /CUMM (0.10-0.60); BASOPHIL % 0.3 % (0.0-2.0); EOSINOPHIL % 2.1 % (0-5); HEMATOCRIT 29.2 % (37-47); MEAN CORPUSCULAR HGB 29.5 PG (27.0-31.0); MEAN CORPUSCULAR HGB CONC 32.7 G/DL (33.0-37.0); MEAN CORPUSCULAR VOLUME 90.3 FL (81.0-99.0); MEAN PLATELET VOLUME 6.4 FL (7.4-10.4); PLATELET COUNT 483 /CUMM (130-400); RBC DISTRIBUTION WIDTH 14.5 % (11.5-14.5); RED BLOOD CELL CT 3.23 /CUMM (4.20-5.40); WHITE BLOOD CELL COUNT 13.5 /CUMM (4.8-10.8)
[2016-07-18 14:36] LABS: GRANULOCYTE % 84.7 % (42.2-75.2)
--- NOTE | 2016-07-18 15:32 | CT SCAN REPORT ---
EXAMINATION: CT LOWER EXTREMITY WITHOUT CONTRAST, LEFT CLINICAL INFORMATION: Left hip pain, evaluate for fracture. COMPARISON: Radiographs 03/01/2016. CT 07/26/2015. TECHNIQUE: A noncontrast CT of the left hip is performed with sagittal and coronal reformats. DLP: 2153 mGy-cm. FINDINGS: Evidence of a total hip arthroplasty which has been removed with chronic-appearing bone resorption and erosions of the proximal femur medially and the distal aspect of the former femoral stem laterally, as well as the acetabulum with a joint effusion and numerous small intra-articular fragments. Cannot exclude the possibility of an active infection. No acute fracture is demonstrated. IMPRESSION: No acute fracture is demonstrated. No significant change in the appearance of the left hip and proximal femur status post hardware removal from presumed infection. Cannot exclude the presence of active infection in the appropriate clinical setting.
[2016-07-18 16:29] VITALS: BP 136/72
== END 2016-07-18 16:30 ==
LOC: ERH 13:12
PROVIDERS: Physician Assistant
DX: M25.552 Pain in left hip (principal)